=== PATIENT | male | born 1935 | race Caucasian/White ===

== ENCOUNTER 2016-05-08 19:09 | Inpatient (IN) | payer MEDICARE, MEDICAID ==
[2016-05-08 20:55] VITALS: BP 125/71
[2016-05-08] MEDS ORDERED: Maalox 30 mL Cup PO PRN (21:17)
[2016-05-08] MEDS ORDERED: Magnesium Hydroxide (MOM) 30 mL UDC PO PRN (21:17)
--- NOTE | 2016-05-08 23:47 | Admit Criteria Form ---
Admit Criteria Forms - Admit Criteria Diagnosis: PSYCHIATRIC DISORDERS Clinical Indications for Inpatient Care (Place 'X' for any and all applicable criteria): Ongoing inpatient care may be needed for ANY ONE of the following(1)(2)(3)(4)(6) (7)(8): [X]I. Danger to self or others not manageable at lower level of care. [ ]II. Grave disability (eg, inability to perform self care necessary at lower level of care) [ ]III. Agitation or inappropriate behavior interfering with care for primary condition (eg, attempting to discontinue lines or drains prematurely, unable to cooperate with respiratory care) [ ]IV. Severe disability or disorder indicated by ALL of the following: [ ]a) Severe behavioral health disorder-related symptoms or condition indicated by ANY ONE of the following: [ ]i) Severe problem with cognition, memory, judgment, or impulse control [ ]ii) Severe clinical manifestations (eg, hallucinations, delusions, other acute psychotic symptoms, issa, extreme agitation or anxiety) [ ]b) Patient management at lower level of care is not feasible until acute intervention or modification is initiated. Extended stay beyond goal length of stay for the primary condition may be indicated when ANY ONE of the following is present: (1)(2)(3)(4): [ ]a) Patient is a danger to self or others and not manageable at lower level of care. [ ]b) Behavior crisis management, including physical or chemical restraints, is required and is not available at a lower level of care. [ ]c) Behavioral symptoms (e.g., agitation, somnolence, inappropriate behavior) are present, and are not manageable at a lower level of care. [ ]d) Patient cannot understand follow-up treatment and crisis plan. [ ]e) Provider and supports are not sufficiently available at lower level of care. [ ]f) Patient cannot participate (e.g., verify absence of plan for harm) and is in needed of monitoring. The original [facility] [employer] content created by [facility] [employer] has been revised. The portions of the content which have been revised are identified through the use of italic text or in bold, and [facility] [employer] has neither reviewed nor approved the modified material. All other unmodified content is copyright [facility] [employer]. Please see references footnoted in the original [facility] edition 2016 Admit Criteria Met?: Yes
[2016-05-09] MEDS: Multivitamin Tab PO SCH (08:33)
[2016-05-09] MEDS: Diltiazem CD 180 mg C24 PO SCH (08:35)
--- NOTE | 2016-05-10 00:26 | History & Physical ---
HISTORY OF PRESENT ILLNESS: The patient is a 80-year-old male with long history of hypertension, depression and psychosis, admitted to ____ hospital with acute agitation. The patient stabilized clinically, transferred to [facility]. The patient feels better. There is no chest pain, no shortness of breath, no nausea, no vomiting, no fever and no chills. PAST MEDICAL HISTORY: Significant for hypertension and dementia. PAST SURGICAL HISTORY: No recent surgery. ALLERGIES: None. MEDICATIONS: Follow admission reconciliation. SOCIAL HISTORY: No smoking, alcohol or drugs. FAMILY HISTORY: Noncontributory. REVIEW OF SYSTEMS: RENAL SYSTEM: No history of chronic renal disorder. CARDIOVASCULAR SYSTEM: No coronary artery disease. ENDOCRINE SYSTEM: No diabetes or thyroid problem. GASTROINTESTINAL SYSTEM: No upper or lower GI bleed. NEUROLOGICAL SYSTEM: No ____ or dementia, psychosis. MUSCULOSKELETAL SYSTEM: No muscular dystrophy. HEMATOLOGIC SYSTEM: No bleeding tendencies. RESPIRATORY SYSTEM: ____. GENITOURINARY SYSTEM: No dysuria or hematuria. PHYSICAL EXAMINATION: GENERAL: He is awake, alert and mildly confused. VITAL SIGNS: Temperature 98, heart rate 88 and blood pressure 143/74. HEENT: Normocephalic. Pupils reacting to light and accommodation. Sclerae clear. NECK: Supple. Negative for lymphadenopathy, JVD or bruit. CHEST: Bilaterally normal. No rhonchi or wheezing. HEART: S1 and S2 normal. ____ No murmur or gallop. ABDOMEN: Soft. Bowel sounds positive. EXTREMITIES: No edema. BACK: ____. SKIN: Intact. GENITOURINARY: Rectal examination done by primary physician. No complaint. NEUROLOGIC: He is awake, alert and mildly confused. No focal motor or sensory deficits. Cranial nerves 2-12 intact. ASSESSMENT: 1. Hypertension. 2. Dementia. 3. Psychosis. PLAN: The patient is in the hospital under Dr. Durant's service. PROBLEMS TO BE ADDRESSED DURING HOSPITALIZATION: Psychosis, dementia. MEDICAL PROBLEMS TO BE ADDRESSED AT DISCHARGE: Hypertension. The patient is medically stable for activity. Thank you, Dr. Durant for asking me to see your patient. JOB# [id number]
--- NOTE | 2016-05-10 04:12 | Psychosocial Evaluation ---
JUSTIFICATION FOR HOSPITALIZATION: A 5150 hold, danger to others and grave disability. Patient is aggressive, violent and confused. CHIEF COMPLAINT: "I do not want to talk to you." HISTORY OF PRESENT ILLNESS: This is a 80-year-old male who I saw over at [facility], placed on a 5150 hold. He was disorganized, psychotic, rambling, violent, aggressive and kicking staff. He had ran away from [facility], was found wandering in traffic, agitated. The police took him to the hospital. On [id number], the patient is refusing interview. PAST PSYCHIATRIC HISTORY: Dementia and psychosis, unspecified. FAMILY HISTORY: Noncontributory. SOCIAL HISTORY: The patient had been living at a rehabilitation center. Daughter very involved. Unclear substance abuse history. MEDICAL HISTORY: Please see full H and P. MEDICATIONS: Reviewed. MENTAL STATUS EXAMINATION: Appearance unkempt, disheveled, little eye contact, not talking to me. Mood is "what do you want." Affect flat. Thought processes were confused. Thought content, unclear SI or HI, but he is violent and appears paranoid. Insight and judgment diminished x 2. Poor concentration. PROVISIONAL DIAGNOSES: Psychosis, unspecified and dementia. ESTIMATED LENGTH OF STAY: 5-10 days. THE PATIENT'S STRENGTH: Good family support. ASSESSMENT: The patient is requiring inpatient hospitalization, violent, disorganized, combative and unable to care for his basic needs. PLAN: We will continue medications, titrate medications as tolerated. TREATMENT PLAN: Includes group as well as milieu therapy. CONDITIONS FOR DISCHARGE: Improved mood, improved affect, control of his violent tendencies and control of his aggressive behaviors. JOB# [id number]
[2016-05-10] MEDS: Diltiazem CD 180 mg C24 PO SCH (08:49)
[2016-05-10] MEDS: Multivitamin Tab PO SCH (08:51)
--- NOTE | 2016-05-11 06:30 | Progress Notes ---
SUBJECTIVE: The patient seen, chart reviewed, discussed with staff. The patient continues to refuse interview, yelling, still hostile at times, unpredictable, impulsive, dangerous, violent, appearing confused, withdrawn, requiring a lot of prompting, redirection, not interactive whatsoever during interview. Medications were reviewed. Labs were reviewed. Depakote level at 29. ASSESSMENT: The patient remains violent, dangerous, impulsive, unpredictable. PLAN: Increase Depakote today. Monitor closely for any other side effects. JOB# [id number]
[2016-05-11] MEDS: Multivitamin Tab PO SCH (09:03)
[2016-05-11] MEDS: Diltiazem CD 180 mg C24 PO SCH (09:04)
--- NOTE | 2016-05-12 01:16 | Progress Notes ---
Covering for Dr. Durant. Case discussed with staff of the patient, reviewed records. A 80-year-old male who was admitted on 05/08/2016, on a hold for danger to others, grave disability. He was aggressive, violent, confused. He refused to talk to Dr. Durant. Apparently, he was seen by Dr. Durant at [facility], he put him on a hold. He was disorganized, psychotic, rambling, violent, aggressive, kicking staff, ran away from [facility]. He was found wandering in traffic, agitated. Police took him to the hospital. The patient is refusing interview. The patient has been diagnosed with psychosis and dementia. The patient's current medications include Depakote 250 mg twice a day, decreased to 250 mg daily and 500 mg at bedtime and Aricept 5 mg at bedtime, Namenda 10 mg daily, Seroquel 100 mg twice a day and 200 mg at bedtime. The patient continues to be confused, irritable, angry, demented, continues to be unable to formulate a safe plan for self-care and so far compliant with the medication with no side effects, no sedation, no nausea, no extrapyramidal symptoms and we will continue to work with patient in group therapy, milieu therapy, adjust the medication as needed. JOB# [id number]
[2016-05-12] MEDS: Multivitamin Tab PO SCH (08:54)
[2016-05-12] MEDS: Diltiazem CD 180 mg C24 PO SCH (08:54)
--- NOTE | 2016-05-13 02:52 | Progress Notes ---
Case was discussed with staff of the patient, also discussed the care with his daughter yesterday, who believes that the patient needed CT scan of the head and MRI of the brain that Dr. Durant told her that this could be done here; however, I deferred that decision to Dr. Clement yesterday. The daughter yesterday complained that the patient has been so sedated and has swollen extremities, though the staff has not agreed that he has a swollen extremity. However, I did decrease his Seroquel to half. He was on the 100 mg twice a day, decreased it down, took the day medication away and kept him on the 200 mg at bedtime. His Depakote dose is the same and so far, no side effects. He is more alert. The staff reports he is eating and still, however, noncommunicative and confused. We will continue to work with patient in group therapy, milieu therapy, adjust medication as needed. JOB# [id number]
[2016-05-13] MEDS: Diltiazem CD 180 mg C24 PO SCH (09:53)
[2016-05-13] MEDS: Multivitamin Tab PO SCH (09:54)
[2016-05-13 10:40] LABS: CREATININE - SERUM 0.9 mg/dL (0.7-1.3)
--- NOTE | 2016-05-14 04:58 | Progress Notes ---
Case was discussed with staff of the patient, reviewed records. The patient will have a CT scan of the head. The staff reports he is more alert now. He is sleeping better, eating better. He is compliant with the medication with no side effects, no sedation, no nausea, no extrapyramidal symptoms. We will continue to work with the patient in group therapy, milieu therapy, and adjust the medication as needed. JOB# [id number]
[2016-05-14] MEDS: Multivitamin Tab PO SCH (09:37)
[2016-05-14] MEDS: Diltiazem CD 180 mg C24 PO SCH (09:38)
--- NOTE | 2016-05-15 04:34 | Progress Notes ---
Case discussed with staff of the patient, reviewed records. The patient is alert today. He was unable to carrying out conversation. He did have a CT scan this morning that was ordered. He seems to be in a bit better shape. The staff report that he get worse in the afternoon, but so far he was not showing any agitation. This morning he is responding well to redirection. No side effects with the medication, no sedation, no nausea, no extrapyramidal symptoms. We will continue the patient in group therapy, milieu therapy, adjust medication as needed. JOB# [id number]
[2016-05-15] MEDS: Multivitamin Tab PO SCH (09:15)
[2016-05-15] MEDS: Diltiazem CD 180 mg C24 PO SCH (09:17)
--- NOTE | 2016-05-15 14:50 | Diagnostic Imaging Report ---
CT scan of brain without intravenous contrast HISTORY: Headache, trauma Total DLP equals 636 CTDI equals 32.3 Axial sections were obtained from the base of the skull to the vertex. There is enlargement of the ventricular system along with enlargement of cerebral sulci and subarachnoid cisterns reflecting atrophy. No acute parenchymal abnormality is. No intracerebral hemorrhage. No mass effect or shift of midline structures. No extra-axial masses or abnormal fluid collections. IMPRESSION: 1. No acute abnormalities 2. Cerebral atrophy
--- NOTE | 2016-05-16 06:06 | Progress Notes ---
SUBJECTIVE: The patient was seen, chart reviewed and discussed with staff. The patient remains symptomatic, is very confused, states that he is going to leave here and go straight to work. The patient did have a CT scan. The patient is still with agitation, escalation of behaviors, violent at times, still responding to internal stimuli, seems internally preoccupied, sleeping fairly well, withdrawn, isolative and requiring prompting for ADLs. ASSESSMENT: The patient remains symptomatic, not safe for discharge. We will continue to monitor. We are working on placement. The patient cannot care for his basic needs given his history and current presentation. JOB# [id number]
[2016-05-16] MEDS: Diltiazem CD 180 mg C24 PO SCH (08:45)
[2016-05-16] MEDS: Multivitamin Tab PO SCH (08:45)
[2016-05-17] MEDS: Multivitamin Tab PO SCH (09:19)
[2016-05-17] MEDS: Diltiazem CD 180 mg C24 PO SCH (09:24)
--- NOTE | 2016-05-17 17:16 | Progress Notes ---
SUBJECTIVE: The patient seen, chart reviewed, discussed with staff. The patient remains symptomatic, confused, has no idea why is here. He states that he is 89 years old, still aggressive and agitated. CT scan results were reviewed. The patient is unable to care for his basic needs, cannot utilize basic food, clothing and snf, history of violent and aggression. ADLs with prompting, eating with prompting. Tolerance of current medication regimen. No side effects, no EPS. ASSESSMENT: The patient remains symptomatic, still psychotic, confused, dangerous, not safe for a lower level of care. We are working hard on disposition on placement. PLAN: The patient remains symptomatic, not safe for a lower level of care. Currently on Seroquel 200, Prozac 10 mg, Aricept 5 mg, divalproex 250 in the morning and 500 at night. The patient does seem to be calmer, but remains confused and disoriented. JOB# [id number]
--- NOTE | 2016-05-18 02:26 | Progress Notes ---
SUBJECTIVE: The patient seen, chart reviewed, discussed with staff. The patient remains very confused and disoriented. Still impulsive, unpredictable, gravely disabled, cannot utilize basic food, clothing and nursing home. I did speak with the [id number] yesterday. She is actively searching for a place for him to go, but has as of yet not confirmed placement. The patient is sleeping fairly well ____. ASSESSMENT AND PLAN: The patient remains confused, unpredictable, gravely disabled, disoriented, rambling nonsensically, history of violence and agitation. We will continue to monitor and titrate medications ____ need help with placement. JOB# [id number]
[2016-05-18] MEDS: Diltiazem CD 180 mg C24 PO SCH (09:49)
[2016-05-18] MEDS: Multivitamin Tab PO SCH (09:50)
[2016-05-19] MEDS: Diltiazem CD 180 mg C24 PO SCH (08:46)
[2016-05-19] MEDS: Multivitamin Tab PO SCH (08:46)
--- NOTE | 2016-05-19 17:39 | Progress Notes ---
SUBJECTIVE: The patient seen, chart reviewed, discussed with staff. The patient remains impulsive, unpredictable, history of violence, aggressive behaviors, very confused. Unable to utilize basic food, clothing and fdc, gravely disabled. [id number]-kc-lff actively seeking a placement to go. The patient sleeping fairly well, eating with prompting, calm at this time, disoriented, AO to name only. ASSESSMENT: The patient remains symptomatic, confused, unpredictable, history of violence, rambling nonsensically, grave disability. PLAN: Continue to monitor and titrate medications. Currently pending confirmation of placement. JOB# [id number]
--- NOTE | 2016-05-20 02:46 | Progress Notes ---
SUBJECTIVE: The patient was seen, chart reviewed, and discussed with staff. The patient remains confused, still disoriented, impulsive, unpredictable, calmer at this time, less combative, more redirectable, but concerns about his ability to provide for basic food, clothing, and chcf, unable to utilize basic food, clothing, and chcf due to the severity of his confusional state. We are trying to help him with placement at this time. The patient is requiring prompting for ADLs and prompting for eating. He is taking his medications. No EPS. No akathisia. ASSESSMENT AND PLAN: Confused, unpredictable, grave disability, disoriented, will await placements. JOB# [id number]
[2016-05-20] MEDS: Multivitamin Tab PO SCH (08:10)
[2016-05-20] MEDS: Diltiazem CD 180 mg C24 PO SCH (08:10)
--- NOTE | 2016-05-21 01:47 | Progress Notes ---
SUBJECTIVE: The patient is seen, chart reviewed, discussed with staff. The patient remains symptomatic. Still aggressive at times, but more redirectable, confused, and disoriented. We are working hard on placement. Unable to utilize basic food, clothing and intermediate due to the severity of the psychotic and cognitive decline symptoms, mostly isolative, withdrawn, mumbling to himself. ASSESSMENT: The patient is calmer, more cooperative, but gravely disabled, confused, psychotic. PLAN: Titrate medications, monitor closely. We are working hard on placement. JOB# [id number]
[2016-05-21] MEDS: Multivitamin Tab PO SCH (09:05)
[2016-05-21] MEDS: Diltiazem CD 180 mg C24 PO SCH (09:05)
[2016-05-22] MEDS: Multivitamin Tab PO SCH (09:32)
[2016-05-22] MEDS: Diltiazem CD 180 mg C24 PO SCH (09:32)
--- NOTE | 2016-05-22 18:33 | Progress Notes ---
SUBJECTIVE: The patient seen, chart reviewed, discussed with staff. The patient remains symptomatic, confused, still agitated, does not know what is going on, appearing psychotic, responding to internal stimuli, delusional, wandering, impulsive, highly unpredictable, history violent, currently with grave disability, unable to participate in self-care planning discussions. He is frankly too confused. ASSESSMENT AND PLAN: The patient remains confused, history of violence, impulsive, unpredictable, still with safety concerns. PLAN: Coordinate care with social media director to try to confirm placement. We will continue titrating medications. JOB# [id number]
--- NOTE | 2016-05-22 22:28 | Progress Notes ---
SUBJECTIVE: The patient seen, chart reviewed, discussed with staff. The patient remains symptomatic, highly disorganized, confused, disoriented, still aggressive at times, impulsive, unpredictable, difficulty with following any rules and directions, stays in his room most of the time, isolative, withdrawn. On a positive note, he is med compliant. No side effects noted. No EPS for example, no over sedation. Gravely disabled, unable to care for his basic needs. We are trying to help him with placement. ASSESSMENT AND PLAN: The patient remains symptomatic, not safe for a lower level of care. Currently pending placement. JOB# [id number]
[2016-05-23] MEDS: Diltiazem CD 180 mg C24 PO SCH (09:00)
[2016-05-23] MEDS: Multivitamin Tab PO SCH (09:04)
[2016-05-24] MEDS: Diltiazem CD 180 mg C24 PO SCH (08:18)
[2016-05-24] MEDS: Multivitamin Tab PO SCH (08:20)
--- NOTE | 2016-05-24 19:09 | Progress Notes ---
SUBJECTIVE: The patient seen, chart reviewed, discussed with staff. The patient remains aggressive, impulsive, confused, disoriented, unable to care for his basic needs, too confused to utilize basic food, clothing and retirement, now awaiting placement. He is taking his medications, no side effects, following unit rules and directions at this time, withdrawn, isolative. ASSESSMENT: The patient is demented, confused, disoriented, aggressive, gravely disabled. PLAN: We are working hard on placement, monitor for side effects. JOB# [id number]
--- NOTE | 2016-05-25 02:11 | Progress Notes ---
SUBJECTIVE: The patient was seen, chart reviewed, and discussed with staff. The patient remains symptomatic. Still aggressive at times, labile, gravely disabled, cannot utilize basic food, clothing, and prison due to the severity of his cognitive decline of dementia. Currently pending placement. No SI, no HI. The patient is rambling nonsensical, does not really know what he is and what is going on. Sleeping fairly well, eating with prompting, and ADLs with prompting. He remains isolative, mostly in his room. ASSESSMENT AND PLAN: The patient remains gravely disabled. He is noted highly confused, demented, and disoriented. PLAN: We will continue to monitor, working hard on placements. JOB# [id number]
[2016-05-25] MEDS: Multivitamin Tab PO SCH (08:52)
[2016-05-25] MEDS: Diltiazem CD 180 mg C24 PO SCH (08:54)
[2016-05-26] MEDS: Multivitamin Tab PO SCH (09:13)
[2016-05-26] MEDS: Diltiazem CD 180 mg C24 PO SCH (09:14)
--- NOTE | 2016-05-26 22:20 | Progress Notes ---
SUBJECTIVE: The patient seen, chart reviewed, discussed with staff. The patient remains symptomatic, gravely disabled, cannot utilize basic food, clothing and long-term, unkempt. We are trying to work on placement, currently pending placement. The patient is still isolative, withdrawn, spending most of his time in bed, needing prompting for ADLs, prompting for eating. ASSESSMENT: The patient is unable to utilize basic food, clothing and long-term, gravely disabled. PLAN: We will continue to monitor, titrate medications. [facility]# [id number]
--- NOTE | 2016-05-26 22:33 | Progress Notes ---
SUBJECTIVE: The patient seen, chart reviewed, discussed with staff. The patient remains symptomatic. We are having trouble with placement and he cannot care for his basic needs. Still aggressive at times, agitated, impulsive, withdrawn, staying in his room most of the time, needing prompting for ADLs, prompting to eat, poor mentation, unkempt, taking his medications. ASSESSMENT: The patient remains withdrawn, isolative, angry, irritable, not able to care for his basic needs, cannot utilize basic food, clothing and halfway. PLAN: We are continuing to work out on placement. JOB# [id number]
[2016-05-27] MEDS: Diltiazem CD 180 mg C24 PO SCH (09:12)
[2016-05-27] MEDS: Multivitamin Tab PO SCH (09:15)
--- NOTE | 2016-05-28 00:23 | Progress Notes ---
SUBJECTIVE: The patient was seen, chart was reviewed, and discussed with staff. The patient remains symptomatic, gravely disabled, cannot utilize basic food, clothing, and intermediate, concerns for safety, confused. Does not know where he is, states he is "in my bedroom." Does not know the year, the month, or why he is in the hospital or even that he is in the hospital. Per staff, he has been more engaged, better attention to ADLs, more interactive, needing a lot of prompting, however. ASSESSMENT: The patient remains gravely disabled, cannot take care of himself. We are working on placement, but we have not confirmed placement, and the patient cannot care for his basic needs. JOB# [id number]
--- NOTE | 2016-05-28 01:15 | Progress Notes ---
SUBJECTIVE: The patient was seen, chart was reviewed, and discussed with staff. The patient remains symptomatic, gravely disabled, and confused. Does not know where he is, states "in the bedroom." Has no idea that he is in the hospital. Does not know why he is in the hospital, has no idea about the year and the month. He is able to tell me he was born in [place], however, more engaged, better attention ADLs, but unable to utilize basic food, clothing, and fdc and needs placement and no placement is confirmed. ASSESSMENT: The patient with behavioral disturbances, still impulsive, unpredictable, confused, disoriented, but improvement noted. PLAN: We will continue to monitor. Awaiting confirmation for placement. JOB# [id number]
[2016-05-28] MEDS: Diltiazem CD 180 mg C24 PO SCH (09:55)
[2016-05-28] MEDS: Multivitamin Tab PO SCH (09:57)
--- NOTE | 2016-05-29 02:57 | Progress Notes ---
SUBJECTIVE: Chart reviewed and the patient interviewed. Also discussed the patient's condition with the staff and reviewed records and labs. The patient is selectively mute and he is actively responding to the stimuli. When I was asking the patient about how he feels, "I am looking at the ." He also is still depressed and wants to be left alone. The patient also is slow in response and he seems to be preoccupied. Also, he seems to be paranoid. Otherwise, the patient is compliant with taking his medications with no side effects of medications. ASSESSMENT: The patient is still psychotic. TREATMENT PLAN: We will continue monitoring his behavior and his condition closely. Also, continue to adjust the psychotropic medications and working on placement issue. JOB# [id number]
[2016-05-29] MEDS: Multivitamin Tab PO SCH (08:43)
[2016-05-29] MEDS: Diltiazem CD 180 mg C24 PO SCH (08:45)
--- NOTE | 2016-05-29 23:27 | Progress Notes ---
SUBJECTIVE: The patient seen, chart reviewed, discussed with staff. The patient remains symptomatic, still very confused, withdrawn, but on a positive note, he is calmer, more redirectable. However, he is quite demented, confused, unable to utilize basic food, clothing and [facility], cannot take care of himself. We are working on placement at this time as well, but until placement is confirmed, the patient is considered gravely disabled. He is pretty unkempt at this time, needing prompting for ADLs and prompting to eat. ASSESSMENT AND PLAN: The patient is following unit rules, still irritable, still with some mood swings and lability, confused, tangential, disorganized, disoriented. He cannot care for himself. We will continue to monitor and titrate medications. JOB# [id number]
[2016-05-30] MEDS: Multivitamin Tab PO SCH (08:36)
[2016-05-30] MEDS: Diltiazem CD 180 mg C24 PO SCH (08:38)
--- NOTE | 2016-05-31 03:34 | Progress Notes ---
SUBJECTIVE: The patient seen, chart reviewed, discussed with staff. The patient remains gravely disabled, confused, disoriented, unable to care for his basic needs, unable to provide for basic food, clothing and nursing home. He is more calm, following unit rules and directions, sleeping fairly well, eating with prompting, no SI, no HI, no agitation, no escalation of behaviors. ASSESSMENT: Gravely disabled, currently awaiting to confirm placements. The patient cannot care for his basic needs, so he will be gravely disabled until placement is confirmed. Otherwise, he does remain disorganized and confused, but following unit rules and directions, no agitation. JOB# [id number]
[2016-05-31] MEDS: Diltiazem CD 180 mg C24 PO SCH (08:34)
[2016-05-31] MEDS: Multivitamin Tab PO SCH (08:34)
--- NOTE | 2016-05-31 23:46 | Discharge Summary ---
JUSTIFICATION FOR HOSPITALIZATION: The patient transferred from [facility] agitated, combative, delusional and psychotic. CHIEF COMPLAINT: Psychotic decompensation. HISTORY OF PRESENT ILLNESS: This is a 80-year-old male transferred from [facility] referred by Dr. Durant, agitated, combative, delusional, psychotic, dangerous, hitting staff and requiring restraints. The patient poorly oriented, disoriented. PAST PSYCHIATRIC HISTORY: Advanced cognitive decline. FAMILY HISTORY: Noncontributory. SOCIAL HISTORY: Support from [id number], otherwise requiring high level of care. MENTAL STATUS EXAMINATION: Please see full psych eval for details. PROVISIONAL DIAGNOSES: Psychosis, unspecified and dementia with behavioral disturbances. PAST MEDICAL HISTORY: Please see full H and P. HOSPITAL COURSE: After initial assessment, the patient was started on antipsychotic medications and medications to tamper his mood and control his impulse. Over the course of the hospitalization, medication was increased and titrated appropriately. As the hospitalization progressed, his mood improved. He was more engaged, less combative, more cooperative, following the rules and directions. No longer paranoid, no longer psychotic, sleeping well, eating with prompting, ADLs with prompting. By 05/31/2016, placement was confirmed as the patient was not able to care of himself and he was discharged and transferred to a fpc facility. CONDITION UPON DISCHARGE: Improved. Better attention ADLs, better eye contact, more engaged, calm and cooperative. Mood "fine." Affect flat. Thought processes were confused. No SI, no HI and no evidence of psychosis. Concentration fair. Insight remains diminished. Judgment better. Better impulse control. Sleeping well and eating well. No agitation and no combative behaviors. I was in touch with the [id number] a few times over the course of the hospitalization and did update her. DISCHARGE DIAGNOSES: Psychosis, unspecified and dementia with behavioral disturbances and mood, not otherwise specified. PROGNOSES: The patient follows up with Psychiatry at his fpc facility and follows the treatment plan. Prognosis will improve, otherwise guarded. JOB# [id number]
== END 2016-05-31 13:30 | DRG 884 ==
LOC: GERO 19:09
PROVIDERS: ADMIT Psychiatry & Neurology Psychiatry; ATTEND Psychiatry & Neurology Psychiatry
DX: F03.91 Unspecified dementia, unspecified severity, with behavioral disturbance (principal); I10 Essential (primary) hypertension; F32.9 Major depressive disorder, single episode, unspecified; F29 Unspecified psychosis not due to a substance or known physiological condition; F39 Unspecified mood [affective] disorder
CPT/HCPCS: 36415-UA; 70450-TC; 80164-TC; 82565-TC; 84520-TC; 90899; Z7610

== ENCOUNTER 2016-12-15 12:55 | Inpatient (IN) | payer MEDICARE, MEDICAID ==
--- NOTE | 2016-12-15 13:21 | ED Physician Chart ---
ED Chief Complaint/HPI - Patient Information Date Seen:: 12/15/16 Time Seen:: 13:17 Chief Complaint:: NOT EATING History of Present Illness:: THE IS A 81 YR OLD MALE SENT FROM THE GROUP HOME FOR EVALUATION AND TREATMENT OF HIS OF PSYCHOTIC BEHAVIOR. HE HAS STOPPED EATING AND HAS BEEN UNCOOPERATIVE WITH AGITATION. HAS A HISTORY OF HYPERTENSION AND DEMENTIA. Allergies:: Allergies Allergy/AdvReac Type Severity Reaction Status Date / Time No Known Allergies Allergy Verified 05/08/16 20:36 Vitals:: Vital Signs - 8 hr 12/15/16 13:02 Temp 98.2 F HR 76 RR 18 BP 130/72 O2 Sat % 97 Historian:: Medical Records Review:: Nurse's Note Reviewed, Transfer documents Reviewed ED Review of Systems - Review of Systems General/Constitutional: No fever, No chills, No weight loss, No weakness, No diaphoresis, No edema, No loss of appetite, Other (THIS PATIENT IS UNABLE TO GIVE A REVIEW OF SYSTEMS.) Skin: No skin lesions, No rash, No bruising Head: No headache, No light-headedness Eyes: No loss of vision, No pain, No diplopia ENT: No earache, No nasal drainage, No sore throat, No tinnitus Neck: No neck pain, No swelling, No thyromegaly, No stiffness, No mass noted Cardio Vascular: No chest pain, No palpitations, No PND, No orthopnea, No edema Pulmonary: No SOB, No cough, No sputum, No wheezing GI: No nausea, No vomiting, No diarrhea, No pain, No melena, No hematochezia, No constipation, No hematemesis G/U: No dysuria, No frequency, No hematuria Musculoskeletal: No bone or joint pain, No back pain, No muscle pain Endocrine: No polyuria, No polydipsia Psychiatric: No prior psych history, No depression, No anxiety, No suicidal ideation Hematopoietic: No bruising, No lymphadenopathy Allergic/Immuno: No urticaria, No angioedema Neurological: No syncope, No focal symptoms, No weakness, No paresthesia, No headache, No seizure, No dizziness, No confusion, No vertigo ED Past Medical History - Past Medical History Obtainable: Yes Past Medical History: HTN, Dementia Family History: None Social History: Non Smoker, No Alcohol, No Drug Use, Care Facility Surgical History: None Psychiatricy History: Depression, Dementia Family Medical History - Family Member Mother History Unknown: Yes ED Physical Exam - Physical Examination General/Constitutional: Well-developed, well-nourished, Alert, No distress, GCS 15, Non-toxic appearing, Ambulatory Other Gen/Cons comments:: HE IS NON VERBAL AND LETHARGIC Head: Atraumatic Eyes: Lids, conjuctiva normal, PERRL, EOMI Skin: Nl inspection, No rash, No skin lesions, No ecchymosis, Well hydrated, No lymphadenopathy ENMT: External ears, nose nl, Nasal exam nl, Lips, teeth, gums nl Neck: Nontender, Full ROM w/o pain, No JVD, No nuchal rigidity, No bruit, No mass, No stridor Respiratory: Nl effort/Exclusion, Clear to Auscultation, No Wheeze/Rhonchi/Rales Cardio Vascular: RRR, No murmur, gallop, rubs, NL S1 S2 GI: No tenderness/rebounding/guarding, No organomegaly, No hernia, Normal BS's, Nondistended, No mass/bruits, No McBurney tenderness : No CVA tenderness Extremities: No tenderness or effusion, Full ROM, normal strength in all extremities, No edema, Normal digits & nails Neuro/Psych: DTR's symmetric, Normal sensory exam, Normal motor strength, Judgement/insight normal (HE IS DISORIENTED TIMES FOUR), Mood normal, Normal gait, No focal deficits Misc: normal gait, Normal back, No paraspinal tenderness ED Labs/Radiology/EKG Results - Lab Results Results: Abnormal Lab Results 12/15/16 12/15/16 12/15/16 13:15 13:15 13:15 WBC 6.8 RBC 4.04 Hgb 12.4 Hct 37.3 L MCV 92.5 MCH 30.7 MCHC Differential 33.2 RDW 13.4 Plt Count 175 MPV 8.2 Neutrophils % 60.8 Lymphocytes % 26.9 Monocytes % 8.7 Eosinophils % 3.2 Basophils % 0.4 PT 10.8 INR 1.04 Sodium Potassium Chloride Carbon Dioxide Anion Gap BUN Creatinine Est GFR ( Amer) Est GFR (Non-Af Amer) BUN/Creatinine Ratio Glucose Calcium Total Bilirubin AST ALT Alkaline Phosphatase Total Protein Albumin Globulin Albumin/Globulin Ratio Triglycerides 99 Cholesterol 145 LDL Cholesterol Direct 104 HDL Cholesterol 42 12/15/16 13:15 WBC RBC Hgb Hct MCV MCH MCHC Differential RDW Plt Count MPV Neutrophils % Lymphocytes % Monocytes % Eosinophils % Basophils % PT INR Sodium 140 Potassium 4.3 Chloride 108 H Carbon Dioxide 30.1 Anion Gap 6.2 L BUN 23 Creatinine 0.9 Est GFR ( Amer) TNP Est GFR (Non-Af Amer) TNP BUN/Creatinine Ratio 25.6 Glucose 77 Calcium 9.1 Total Bilirubin 0.6 AST 18 ALT 14 Alkaline Phosphatase 29 L Total Protein 6.3 Albumin < 1.5 L Globulin 4.8 Albumin/Globulin Ratio 0.3 L Triglycerides Cholesterol LDL Cholesterol Direct HDL Cholesterol - Radiology Results Results: CHEST X-RAY = NAD - EKG Interpretations EKG Time:: 13:41 Rate & Rhythm: RATE =48 SINUS BRADYCARDIA [place]: LEFT ED Assessment - Assessment General Assessment: BRADYCARDIA PSYCHOSIS ED Septic Shock - . Is Septic Shock (SBP<90, OR Lactate>4 mmol\L) present?: No - <6hrs of presentation: Vital Signs: Vital Signs - 8 hr 12/15/16 13:02 Temp 98.2 F HR 76 RR 18 BP 130/72 O2 Sat % 97 ED Reassessment (Disposition) - Reassessment Reassessment Condition:: Unchanged - Diagnosis Diagnosis:: BRADYCARDIA PSYCHOSIS - Patient Disposition Discharge/Transfer:: Acute Care w/in this hosp Admitting Medical Physician:: Chago Clement Condition at Disposition:: Unchanged ED Discharge Plan - Patient Disposition Admit/Discharge/Transfer: Acute Care w/in this hosp Condition at Disposition: Guarded
[2016-12-15 13:23] LABS: % BASOPHILS 0.4 % (0.0-2.0); % EOSINOPHILS 3.2 % (0.0-5.0); % LYMPHOCYTES 26.9 % (20.0-50.0); % MONOCYTES 8.7 % (2.0-10.0); % NEUTROPHILS 60.8 % (40.0-80.0); HEMATOCRIT 37.3 % (41.0-60); HEMOGLOBIN 12.4 gm/dL (12-16); MEAN CELL VOLUME 92.5 fl (80-99); MEAN CORPUSCULAR HEMOGLOBIN 30.7 pg (27.0-31.0); MEAN CORPUSCULAR HGB CONC 33.2 pg (28.0-36.0); MEAN PLATELET VOLUME 8.2 fl; NEUTROPHILE ABSOLUTE 4.2 Th/cmm (1.8-8.0); PLATELET COUNT 175 Th/cmm (150-400); RED BLOOD COUNT 4.04 Mil/cmm (3.80-5.80); RED CELL DISTRIBUTION WIDTH 13.4 % (11.5-20.0); WHITE BLOOD COUNT 6.8 Th/cmm (4.8-10.8)
[2016-12-15] MEDS ORDERED: Haloperidol Lactate 5 mg/mL 1mL Vial IM STA (13:27)
[2016-12-15] MEDS ORDERED: Haloperidol Lactate 5 mg/mL 1mL Vial ONE (13:33)
--- NOTE | 2016-12-15 13:33 | Diagnostic Imaging Report ---
Chest x-ray single view History: Cough Comparison: None The heart size is normal. No focal pulmonary parenchymal processes. No hilar or mediastinal abnormalities. Impression: No acute abnormalities.
[2016-12-15 13:38] LABS: INR 1.04 (0.5-1.4); PROTHROMBIN TIME (TEST) 10.8 SECONDS (9.5-11.5)
[2016-12-15 13:44] LABS: ALB/GLOB RATIO 0.3 (1.0-1.8); ALKALINE PHOSPHATASE 29 U/L (34-104); ANION GAP 6.2 (7.0-16.0); BILIRUBIN,TOTAL 0.6 mg/dL (0.3-1.0); BUN - UREA NITROGEN 23 mg/dL (7-25); BUN/CREATININE RATIO 25.6; CALCIUM SERUM 9.1 mg/dL (8.6-10.3); CARBON DIOXIDE 30.1 mEq/L (21.0-31.0); CHLORIDE 108 mEq/L (98-107); CREATININE - SERUM 0.9 mg/dL (0.7-1.3); GLUCOSE 77 mg/dL (70-105); POTASSIUM SERUM 4.3 mEq/L (3.5-5.1); SGOT 18 U/L (13-39); SGPT/ALT 14 U/L (7-52); SODIUM SERUM 140 mEq/L (136-145)
[2016-12-15 13:49] LABS: CHOLESTEROL 145 mg/dL (<200); TRIGLYCERIDES 99 mg/dL (<150)
[2016-12-15 16:23] LABS: URINE BILIRUBIN NEGATIVE (NEGATIVE); URINE BLOOD TRACE (NEGATIVE); URINE GLUCOSE (UA) NEGATIVE (NEGATIVE); URINE KETONE NEGATIVE (NEGATIVE); URINE PROTEIN NEGATIVE (NEGATIVE); URINE UROBILINOGEN 0.2 E.U./dL (0.2 - 1.0)
[2016-12-15 16:28] LABS: URINE BACTERIA FEW /hpf (NONE SEEN); URINE COLOR YELLOW; URINE EPITHELIAL CELLS OCCASIONAL /lpf (FEW); URINE WBC 0-2 /hpf (0-5)
[2016-12-15] MEDS ORDERED: Maalox 30 mL Cup PO PRN (18:05)
--- NOTE | 2016-12-15 19:53 | General Progress Note ---
Subjective - Review of Systems Service Date: 12/15/16 Objective - Results Result Diagrams: 12/15/16 13:15 12/15/16 13:15 Recent Labs: Laboratory Last Values WBC 6.8 Th/cmm (4.8-10.8) 12/15/16 13:15 RBC 4.04 Mil/cmm (3.80-5.80) 12/15/16 13:15 Hgb 12.4 gm/dL (12-16) 12/15/16 13:15 Hct 37.3 % (41.0-60) L 12/15/16 13:15 MCV 92.5 fl (80-99) 12/15/16 13:15 MCH 30.7 pg (27.0-31.0) 12/15/16 13:15 MCHC Differential 33.2 pg (28.0-36.0) 12/15/16 13:15 RDW 13.4 % (11.5-20.0) 12/15/16 13:15 Plt Count 175 Th/cmm (150-400) 12/15/16 13:15 MPV 8.2 fl 12/15/16 13:15 Neutrophils % 60.8 % (40.0-80.0) 12/15/16 13:15 Lymphocytes % 26.9 % (20.0-50.0) 12/15/16 13:15 Monocytes % 8.7 % (2.0-10.0) 12/15/16 13:15 Eosinophils % 3.2 % (0.0-5.0) 12/15/16 13:15 Basophils % 0.4 % (0.0-2.0) 12/15/16 13:15 PT 10.8 SECONDS (9.5-11.5) 12/15/16 13:15 INR 1.04 (0.5-1.4) 12/15/16 13:15 Sodium 140 mEq/L (136-145) 12/15/16 13:15 Potassium 4.3 mEq/L (3.5-5.1) 12/15/16 13:15 Chloride 108 mEq/L (98-107) H 12/15/16 13:15 Carbon Dioxide 30.1 mEq/L (21.0-31.0) 12/15/16 13:15 Anion Gap 6.2 (7.0-16.0) L 12/15/16 13:15 BUN 23 mg/dL (7-25) 12/15/16 13:15 Creatinine 0.9 mg/dL (0.7-1.3) 12/15/16 13:15 Est GFR ( Amer) TNP 12/15/16 13:15 Est GFR (Non-Af Amer) TNP 12/15/16 13:15 BUN/Creatinine Ratio 25.6 12/15/16 13:15 Glucose 77 mg/dL (70-105) 12/15/16 13:15 Calcium 9.1 mg/dL (8.6-10.3) 12/15/16 13:15 Total Bilirubin 0.6 mg/dL (0.3-1.0) 12/15/16 13:15 AST 18 U/L (13-39) 12/15/16 13:15 ALT 14 U/L (7-52) 12/15/16 13:15 Alkaline Phosphatase 29 U/L (34-104) L 12/15/16 13:15 Troponin I ng/mL (0.01-0.05) 12/15/16 13:15 Total Protein 6.3 gm/dL (6.0-8.3) 12/15/16 13:15 Albumin < 1.5 gm/dL (4.2-5.5) L 12/15/16 13:15 Globulin 4.8 gm/dL 12/15/16 13:15 Albumin/Globulin Ratio 0.3 (1.0-1.8) L 12/15/16 13:15 Triglycerides 99 mg/dL (<150) 12/15/16 13:15 Cholesterol 145 mg/dL (<200) 12/15/16 13:15 LDL Cholesterol Direct 104 mg/dL (75-193) 12/15/16 13:15 HDL Cholesterol 42 mg/dL (23-92) 12/15/16 13:15 TSH 2.48 uIU/ml (0.34-5.60) 12/15/16 13:15 Urine Source CLEAN C 12/15/16 16:00 Urine Color YELLOW 12/15/16 16:00 Urine Clarity CLEAR (CLEAR) 12/15/16 16:00 Urine pH 7.0 (4.6 - 8.0) 12/15/16 16:00 Ur Specific Bryan 1.010 (1.005-1.030) 12/15/16 16:00 Urine Protein NEGATIVE mg/dL (NEGATIVE) 12/15/16 16:00 Urine Glucose (UA) NEGATIVE mg/dL (NEGATIVE) 12/15/16 16:00 Urine Ketones NEGATIVE mg/dL (NEGATIVE) 12/15/16 16:00 Urine Blood TRACE (NEGATIVE) 12/15/16 16:00 Urine Nitrate NEGATIVE (NEGATIVE) 12/15/16 16:00 Urine Bilirubin NEGATIVE (NEGATIVE) 12/15/16 16:00 Urine Urobilinogen 0.2 E.U./dL (0.2 - 1.0) 12/15/16 16:00 Ur Leukocyte Esterase NEGATIVE (NEGATIVE) 12/15/16 16:00 Urine RBC 2-5 /hpf (0-5) H 12/15/16 16:00 Urine WBC 0-2 /hpf (0-5) 12/15/16 16:00 Ur Epithelial Cells OCCASIONAL /lpf (FEW) 12/15/16 16:00 Urine Bacteria FEW /hpf (NONE SEEN) 12/15/16 16:00 Urine Mucus FEW /lpf (FEW) 12/15/16 16:00 - Physical Exam Vitals and I&O: Vital Signs Temp 97.6 F 12/15/16 18:22 Pulse 67 12/15/16 18:22 Resp 20 12/15/16 18:22 BP 150/65 12/15/16 18:22 Pulse Ox 96 12/15/16 18:22 Active Medications: Current Medications Acetaminophen (Tylenol) 650 mg PO Q4H PRN PRN Reason: Pain Stop: 02/13/17 18:04 Al Hydrox/Mg Hydrox/Simethicone (Maalox) 30 ml PO Q4HR PRN PRN Reason: GI DISTRESS Stop: 02/13/17 18:04 Aspirin (Aspirin Chewable) 81 mg PO DAILY [facility] Stop: 02/14/17 08:59 Diltiazem HCl (Cardizem Cd) 180 mg PO DAILY [facility] Stop: 02/14/17 08:59 Divalproex Sodium (Depakote Dr) 250 mg PO DAILY [facility] PRN Reason: Protocol Stop: 02/14/17 08:59 Divalproex Sodium (Depakote Dr) 500 mg PO HS ARPITA PRN Reason: Protocol Stop: 02/13/17 20:59 Docusate Sodium (Colace) 100 mg PO BID [facility]PITA Stop: 02/13/17 18:04 Donepezil HCl (Aricept) 5 mg PO HS ARPITA Stop: 02/13/17 20:59 Fluoxetine HCl (Prozac) 10 mg PO DAILY [facility]ITA PRN Reason: Protocol Stop: 02/14/17 08:59 Potassium Chloride/Sodium Chloride (0.9% Ns W/20 Meq Kcl) 1,000 mls @ 75 mls/ hr IV .[id number] ARPITA Stop: 02/13/17 18:04 Lorazepam (Ativan) 1 mg PO Q4HR PRN; Protocol PRN Reason: Anxiety Stop: 02/13/17 18:04 Memantine (Namenda) 10 mg PO DAILY [facility]ITA Stop: 02/14/17 08:59 Multivitamins/Vitamin C (Theragran) 1 tab PO DAILY [facility]ITA Stop: 02/14/17 08:59 Senna (Senna) 17.2 mg PO HS PRN PRN Reason: Constipation Stop: 02/13/17 18:04 Tamsulosin HCl (Flomax) 0.4 mg PO DAILY ARPITA Stop: 02/14/17 08:59 General: Alert, Other (confused) HEENT: PERRLA Cardiovascular: Normal S1, Normal S2 (bradycardia) Abdomen: Bowel sounds, Soft Assessment/Plan - Problem List Patient Problems: All Active Problems DEMENTIA (Acute) HTN (Acute) PSYCHOSIS (Acute) - Assessment Assessment: skin lesions on face
[2016-12-15] MEDS: 0.9% NS w/20 mEq KCL 1,000 ML IV SCH (20:05)
--- NOTE | 2016-12-15 20:26 | History & Physical ---
ADMIT DATE: 12/15/2016 HISTORY OF PRESENT ILLNESS: The patient is well known to me from following him at [facility]. The patient is known to have underlying history of psychosis. The patient is known to have a history of hernia and the patient has some skin lesion on his face, which is not acute. Apparently, the patient was not eating, drinking, and the patient was brought for evaluation for his agitation and not eating and stopped drinking. The patient known to have history of hypertension and dementia. The patient complained of no fever, no chills, no rigors, no nasal discharge. No chest pain, no shortness of breath, no nausea, vomiting, no dysuria, no polyuria, no urticaria except having some skin lesion on his face, history of depression, history of dementia, history of hypertension. PHYSICAL EXAMINATION: GENERAL: Alert, oriented, elderly male. Seen him yesterday in the custodial. HEAD: Normal. ENT: Normal. LUNGS: Bilateral clear. CARDIOVASCULAR SYSTEM: S1, S2 heard. ABDOMEN: Soft. Bowel sounds are heard. CENTRAL NERVOUS SYSTEM: The patient is confused. LABORATORY DATA: White count is 6.8, hemoglobin of 12.4, platelets 37. INR is normal. His sodium 148. CO2 is okay. BUN and creatinine 23 and 0.9 indicating some dehydration. INITIAL DIAGNOSES: His EKG showed sinus bradycardia, rule out cardiomyopathy, history of anemia, history of psychosis, and history of skin lesions. PLAN: He is going to be worked up for his heart problem. We will do cardiac enzymes every [address] Issac Gayle to see the patient and also will have Neurology see him, and Dr. Flowers and I will follow the patient. JOB# [id number]
[2016-12-16] MEDS ORDERED: Diltiazem CD 180 mg C24 PO SCH (09:00)
[2016-12-16] MEDS: Multivitamin Tab PO SCH (09:04)
--- NOTE | 2016-12-16 10:55 | History & Physical ---
ADMIT DATE: 12/16/2016 AGE: 81. SEX: Male. PHYSICIAN: Dr. Murphy. PIECE GOODS PACKER: Dr. Dorsey. REASON FOR THE CONSULT: Agitation. HISTORY OF PRESENT ILLNESS: The patient is a 81-year-old male who was admitted to the hospital and the patient has been severely agitated and trying to pull IVs and tried to hit nursing staff earlier. He also has been confused. The patient also has not been able to answer any of my questions coherently. The patient also is confused. He is a resident in [facility] and he has history of psychosis. Also, has not been able to eat or drink for several days and he was brought into the hospital for evaluation. The patient was extremely agitated to the point that he has to be placed on soft wrist restraints. PAST PSYCHIATRIC HISTORY: Dementia. PAST MEDICAL HISTORY: The patient has history of hypertension. SOCIAL HISTORY: The patient lives in [facility]. No known alcohol or street drug use. MENTAL STATUS EXAM: The patient appears his stated age. Restless. Irritable mood. In soft restraints. The patient did not answer questions regarding hallucinations or delusions or regarding suicide or homicide. The patient is alert and oriented, but seems to be disoriented to time, place, person, and situation. Impaired immediate, recent and remote memories. Poor insight and judgment. ASSESSMENT: PRIMARY DIAGNOSIS: Unspecified psychosis. SECONDARY DIAGNOSES: Dementia, severe, without psychotic features. TREATMENT PLAN: We will add Benadryl 25 mg every 6 hours on a p.r.n. basis for agitation. Also, we will work on his irritability and his agitation and we will adjust the dose of medications. Thanks to Dr. Murphy and will follow up with you. JOB# [id number]
[2016-12-16] MEDS: 0.9% NS w/20 mEq KCL 1,000 ML IV SCH (11:04)
[2016-12-16] MEDS: Aspirin 81mg Chewable Tab PO SCH (11:05)
--- NOTE | 2016-12-16 17:47 | Consultation ---
Consult Note - Consult Note Service Date: 12/16/16 Referring Physician: Ra Murphy Consult Note: PHYSICIAN Consultation Note: Date of Admission: 12/15/16 Purpose of Consultation: Chief Complaint: Patient NATALIE MCBRIDE JR was admitted to location Telemetry with SINUS BRADYCARDIA. History of Present Illness: patient was admitted to sinus bradycardia. however he was found to have macular rash all over the body so ID consult was called for evaluation. Past Medical History: Allergies Allergy/AdvReac Type Severity Reaction Status Date / Time No Known Allergies Allergy Verified 05/08/16 20:36 Vital Signs Temp 94.8 F 12/16/16 16:16 Pulse 76 12/16/16 16:16 Resp 18 12/16/16 16:16 BP 139/73 12/16/16 16:16 Pulse Ox 97 12/16/16 16:16 Intake & Output 12/15/16 12/16/16 12/16/16 18:59 06:59 18:59 Intake Total 200 1000 Output Total 0 Balance 200 1000 Weight (lbs) 79.016 kg Intake: Intake, IV Amount 1000 0.9% NS w/20 mEq KCL 1, 1000 000 ml @ 75 mls/hr IV . [id number] ARPITA Rx#:[id number] Oral 200 Output: Stool 0 Other: # Voids 2 Home Medication Medication Instructions Recorded Type Acetaminophen [Tylenol] 650 mg PO Q4H PRN #0 tab 05/31/16 Rx Al Hyd/Mg Hyd/Simethicone [Maalox] 30 ml PO Q4HR PRN #0 udc 05/31/16 Rx Diltiazem CD [Cardizem Cd] 180 mg PO DAILY #0 c24 05/31/16 Rx Divalproex [April DOWNS] 250 mg PO DAILY #0 tcp 05/31/16 Rx Divalproex [April DOWNS] 500 mg PO HS #0 tcp 05/31/16 Rx Docusate Sodium [Colace] 100 mg PO BID #0 cap 05/31/16 Rx Donepezil Hcl [Aricept] 5 mg PO HS #0 tab 05/31/16 Rx FLUoxetine HCL [PROzac] 10 mg PO DAILY #0 cap 05/31/16 Rx Lorazepam [Ativan] 1 mg PO Q4HR PRN #0 tab 05/31/16 Rx Memantine [Namenda] 10 mg PO DAILY #0 tab 05/31/16 Rx Metoprolol Succinate [Toprol Xl] 25 mg PO DAILY #0 ter 05/31/16 Rx Multivitamin [Theragran] 1 tab PO DAILY #0 tab 05/31/16 Rx Sennosides A and B [Senna] 17.2 mg PO HS PRN #0 tab 05/31/16 Rx Tamsulosin [Flomax] 0.4 mg PO DAILY #0 cap 05/31/16 Rx cloNIDine HCl [Catapres] 0.1 mg PO Q4HR PRN #0 tab 05/31/16 Rx Current Medications Generic Name Dose Route Start Last Admin Trade Name Freq PRN Reason Stop Dose Admin Acetaminophen 650 mg 12/15/16 18:05 12/16/16 04:49 Tylenol PO 02/13/17 18:04 650 mg Q4H PRN Administration Pain Al Hydrox/Mg Hydrox/Simethicone 30 ml 12/15/16 18:05 Maalox PO 02/13/17 18:04 Q4HR PRN GI DISTRESS Aspirin 81 mg 12/16/16 09:00 12/16/16 11:05 Aspirin Chewable PO 02/14/17 08:59 81 mg DAILY ARPITA Administration Diphenhydramine HCl 25 mg 12/16/16 09:37 Benadryl PO 02/14/17 09:36 QID PRN Agitation Diphenhydramine HCl 25 mg 12/16/16 11:15 12/16/16 16:06 Benadryl 50 Mg/Ml IVP 02/14/17 11:14 25 mg Q6HR PRN Administration Agitation if not tolerate po Divalproex Sodium 250 mg 12/16/16 09:00 12/16/16 09:04 April Downs PO 02/14/17 08:59 250 mg DAILY ARPITA Administration Protocol Divalproex Sodium 500 mg 12/15/16 21:00 12/15/16 22:02 April Downs PO 02/13/17 20:59 500 mg HS ARPITA Administration Protocol Docusate Sodium 100 mg 12/15/16 18:05 12/16/16 16:14 Colace PO 02/13/17 18:04 Not Given BID ARPITA Donepezil HCl 5 mg 12/15/16 21:00 12/15/16 22:02 Aricept PO 02/13/17 20:59 5 mg HS ARPITA Administration Fluoxetine HCl 10 mg 12/16/16 09:00 12/16/16 09:04 Prozac PO 02/14/17 08:59 10 mg DAILY ARPITA Administration Protocol Potassium Chloride/Sodium Chloride 1,000 mls @ 75 mls/hr 12/15/16 18:05 12/16 11:04 0.9% Ns W/20 Meq Kcl IV 02/13/17 18:04 75 mls/hr .[id number] ARPITA Administration Lorazepam 1 mg 12/15/16 18:05 12/16/16 16:06 Ativan PO 02/13/17 18:04 1 mg Q4HR PRN Administration Anxiety Protocol Memantine 10 mg 12/16/16 09:00 12/16/16 09:04 Namenda PO 02/14/17 08:59 10 mg DAILY [facility]ITA Administration Multivitamins/Vitamin C 1 tab 12/16/16 09:00 12/16/16 09:04 Theragran PO 02/14/17 08:59 1 tab DAILY [facility]ITA Administration Senna 17.2 mg 12/15/16 18:05 Senna PO 02/13/17 18:04 HS PRN Constipation Tamsulosin HCl 0.4 mg 12/16/16 09:00 12/16/16 09:04 Flomax PO 02/14/17 08:59 0.4 mg DAILY ARPITA Administration Review of Systems: A 12 point ROS was reviewed with the pertinent positive and negatives noted in the HPI. Social History Smoking Status Unknown if ever smoked Drug Use UNABLE TO ASSESS Alcohol Use UNABLE TO ASSESS Family Medical History Unknown Physical Exam: General: Comfortable, not in distress HEENT: Head: Normocephalic, atraumatic. Neck: supple, no JVD. No use of accessory neckk muscles. Cardio: S1 and S2 WNL. Respiratory: Vesicular breath sounds. Abdominal: Soft NT ND BS present. Genital/Urinary: Deferred. Extremities: NCCE Neurological: Aggressive. Alert awake. Assessment: 1. Macular rash. 2.Psychosis Plan: Skin biopsy HIV screen hsv serology. RPR Vit B12 TSH. Thank you, Dr Murphy, for involving me in taking care of the patient. Irwin Marie Devesh N., M.D. [id number]
--- NOTE | 2016-12-16 20:54 | Consultation ---
DATE OF CONSULTATION: 12/16/2016 HISTORY AND PHYSICAL: This is a 81-year-old male patient who apparently stopped eating, drinking. Following this, the patient became lethargic. The patient was brought to the Emergency Room. The patient is admitted, has sinus bradycardia. PAST MEDICAL HISTORY: Iron deficiency anemia, psychosis, BPH, schizoaffective disorder, and anxiety. FAMILY HISTORY: Unremarkable. SOCIAL HISTORY: No history of smoking or alcohol abuse. ALLERGIES: None. PHYSICAL EXAMINATION: VITAL SIGNS: Blood pressure 130/80, pulse 68, and respirations 28. HEAD: Normocephalic. No lumps or bumps. EYES: Pupils are equal and reactive to light. Fundi show AV nicking, sclerae white, and conjunctivae pink. NECK: Carotid 2+. Normal upstroke. JVD flat. Thyroid not palpable. Lymph nodes not palpable. CHEST: Shows increased AP diameter. No kyphosis or scoliosis. LUNGS: Bilateral bronchovesicular breath sounds. HEART: PMI fifth intercostal space with lateral to midclavicular line. S1, S2. No S3, S4. Systolic murmur, grade 2/6, lower left sternal border without radiation. ABDOMEN: Soft. Liver and spleen not palpable. No organomegaly. Bowel sounds active. NEUROLOGIC: Unremarkable. EXTREMITIES: Peripheral pulses 2+. No pedal edema. CLINICAL IMPRESSION: Sinus bradycardia, schizoaffective disorder, psychosis, benign prostatic hyperplasia, iron deficiency anemia, and anxiety. PLAN: The patient will have TSH level, echocardiogram. I will monitor the patient on telemetry bed. [facility]# [id number]
[2016-12-17] MEDS: 0.9% NS w/20 mEq KCL 1,000 ML IV SCH (00:02)
[2016-12-17 05:35] LABS: ANION GAP 10.6 (7.0-16.0); BUN - UREA NITROGEN 20 mg/dL (7-25); CALCIUM SERUM 9.3 mg/dL (8.6-10.3); CARBON DIOXIDE 24.3 mEq/L (21.0-31.0); CHLORIDE 114 mEq/L (98-107); GLUCOSE 116 mg/dL (70-105); POTASSIUM SERUM 3.9 mEq/L (3.5-5.1); SODIUM SERUM 145 mEq/L (136-145)
[2016-12-17] MEDS: Aspirin 81mg Chewable Tab PO SCH (08:37)
[2016-12-17] MEDS: Multivitamin Tab PO SCH (08:37)
--- NOTE | 2016-12-17 10:28 | Progress Notes ---
DATE: 12/17/2016 SUBJECTIVE: Chart reviewed and the patient interviewed. Also discussed the patient's condition with the staff and reviewed records and labs. The patient seems to be slightly calmer than before, but he is still having episodes of agitation and irritability. The patient also still needs redirections. The patient also still has anxiety and mood swings. Otherwise, the patient is compliant with taking his medications with no side effects of Depakote, or Aricept Namenda. Also, the patient continued to take Benadryl and Ativan on a p.r.n. basis. I spoke with patient's daughter yesterday in length about treatment of the patient. The patient responds well to Benadryl and Ativan. The patient is already taking both on a p.r.n. basis. We will get a Depakote blood level. We will continue to follow up closely. JOB# [id number]
--- NOTE | 2016-12-17 11:28 | General Progress Note ---
Subjective - Review of Systems Events since last encounter: patient in no distress Objective - Results Result Diagrams: 12/15/16 13:15 12/17/16 04:45 Recent Labs: Laboratory Last Values WBC 6.8 Th/cmm (4.8-10.8) 12/15/16 13:15 RBC 4.04 Mil/cmm (3.80-5.80) 12/15/16 13:15 Hgb 12.4 gm/dL (12-16) 12/15/16 13:15 Hct 37.3 % (41.0-60) L 12/15/16 13:15 MCV 92.5 fl (80-99) 12/15/16 13:15 MCH 30.7 pg (27.0-31.0) 12/15/16 13:15 MCHC Differential 33.2 pg (28.0-36.0) 12/15/16 13:15 RDW 13.4 % (11.5-20.0) 12/15/16 13:15 Plt Count 175 Th/cmm (150-400) 12/15/16 13:15 MPV 8.2 fl 12/15/16 13:15 Neutrophils % 60.8 % (40.0-80.0) 12/15/16 13:15 Lymphocytes % 26.9 % (20.0-50.0) 12/15/16 13:15 Monocytes % 8.7 % (2.0-10.0) 12/15/16 13:15 Eosinophils % 3.2 % (0.0-5.0) 12/15/16 13:15 Basophils % 0.4 % (0.0-2.0) 12/15/16 13:15 PT 10.8 SECONDS (9.5-11.5) 12/15/16 13:15 INR 1.04 (0.5-1.4) 12/15/16 13:15 Sodium 145 mEq/L (136-145) 12/17/16 04:45 Potassium 3.9 mEq/L (3.5-5.1) 12/17/16 04:45 Chloride 114 mEq/L (98-107) H 12/17/16 04:45 Carbon Dioxide 24.3 mEq/L (21.0-31.0) 12/17/16 04:45 Anion Gap 10.6 (7.0-16.0) 12/17/16 04:45 BUN 20 mg/dL (7-25) 12/17/16 04:45 Creatinine 1.0 mg/dL (0.7-1.3) 12/17/16 04:45 Est GFR ( Amer) TNP 12/17/16 04:45 Est GFR (Non-Af Amer) TNP 12/17/16 04:45 BUN/Creatinine Ratio 20.0 12/17/16 04:45 Glucose 116 mg/dL (70-105) H 12/17/16 04:45 Calcium 9.3 mg/dL (8.6-10.3) 12/17/16 04:45 Total Bilirubin 0.6 mg/dL (0.3-1.0) 12/15/16 13:15 AST 18 U/L (13-39) 12/15/16 13:15 ALT 14 U/L (7-52) 12/15/16 13:15 Alkaline Phosphatase 29 U/L (34-104) L 12/15/16 13:15 Troponin I ng/mL (0.01-0.05) 12/15/16 13:15 Total Protein 6.3 gm/dL (6.0-8.3) 12/15/16 13:15 Albumin < 1.5 gm/dL (4.2-5.5) L 12/15/16 13:15 Globulin 4.8 gm/dL 12/15/16 13:15 Albumin/Globulin Ratio 0.3 (1.0-1.8) L 12/15/16 13:15 Triglycerides 99 mg/dL (<150) 12/15/16 13:15 Cholesterol 145 mg/dL (<200) 12/15/16 13:15 LDL Cholesterol Direct 104 mg/dL (75-193) 12/15/16 13:15 HDL Cholesterol 42 mg/dL (23-92) 12/15/16 13:15 TSH 2.48 uIU/ml (0.34-5.60) 12/15/16 13:15 Urine Source CLEAN C 12/15/16 16:00 Urine Color YELLOW 12/15/16 16:00 Urine Clarity CLEAR (CLEAR) 12/15/16 16:00 Urine pH 7.0 (4.6 - 8.0) 12/15/16 16:00 Ur Specific [place] 1.010 (1.005-1.030) 12/15/16 16:00 Urine Protein NEGATIVE mg/dL (NEGATIVE) 12/15/16 16:00 Urine Glucose (UA) NEGATIVE mg/dL (NEGATIVE) 12/15/16 16:00 Urine Ketones NEGATIVE mg/dL (NEGATIVE) 12/15/16 16:00 Urine Blood TRACE (NEGATIVE) 12/15/16 16:00 Urine Nitrate NEGATIVE (NEGATIVE) 12/15/16 16:00 Urine Bilirubin NEGATIVE (NEGATIVE) 12/15/16 16:00 Urine Urobilinogen 0.2 E.U./dL (0.2 - 1.0) 12/15/16 16:00 Ur Leukocyte Esterase NEGATIVE (NEGATIVE) 12/15/16 16:00 Urine RBC 2-5 /hpf (0-5) H 12/15/16 16:00 Urine WBC 0-2 /hpf (0-5) 12/15/16 16:00 Ur Epithelial Cells OCCASIONAL /lpf (FEW) 12/15/16 16:00 Urine Bacteria FEW /hpf (NONE SEEN) 12/15/16 16:00 Urine Mucus FEW /lpf (FEW) 12/15/16 16:00 Valproic Acid 36.4 ug/mL (50.0-100.0) L 12/17/16 04:45 HIV 1&2 Antibody Screen NEGATIVE (NEG) 12/17/16 04:45 - Physical Exam Vitals and I&O: Vital Signs Temp 97.8 F 12/17/16 08:00 Pulse 89 12/17/16 08:00 Resp 16 12/17/16 08:00 BP 148/75 12/17/16 08:00 Pulse Ox 97 12/16/16 23:47 Intake & Output 12/16/16 12/17/16 12/17/16 18:59 06:59 18:59 Intake Total 1000 972.5 Balance 1000 972.5 Intake: Intake, IV Amount 1000 972.5 0.9% NS w/20 mEq KCL 1, 1000 972.5 000 ml @ 75 mls/hr IV . [id number] [facility] Rx#:[id number] Active Medications: Current Medications Acetaminophen (Tylenol) 650 mg PO Q4H PRN PRN Reason: Pain Stop: 02/13/17 18:04 Last Admin: 12/16/16 04:49 Dose: 650 mg Al Hydrox/Mg Hydrox/Simethicone (Maalox) 30 ml PO Q4HR PRN PRN Reason: GI DISTRESS Stop: 02/13/17 18:04 Aspirin (Aspirin Chewable) 81 mg PO DAILY ARPITA Stop: 02/14/17 08:59 Last Admin: 12/17/16 08:37 Dose: 81 mg Diphenhydramine HCl (Benadryl) 25 mg PO QID PRN PRN Reason: Agitation Stop: 02/14/17 09:36 Diphenhydramine HCl (Benadryl 50 Mg/Ml) 25 mg IVP Q6HR PRN PRN Reason: Agitation if not tolerate po Stop: 02/14/17 11:14 Last Admin: 12/17/16 10:21 Dose: 25 mg Divalproex Sodium (Depakote Dr) 250 mg PO DAILY ARPITA PRN Reason: Protocol Stop: 02/14/17 08:59 Last Admin: 12/17/16 08:37 Dose: 250 mg Divalproex Sodium (Depakote Dr) 500 mg PO HS ARPITA PRN Reason: Protocol Stop: 02/13/17 20:59 Last Admin: 12/16/16 21:14 Dose: 500 mg Docusate Sodium (Colace) 100 mg PO BID ARPITA Stop: 02/13/17 18:04 Last Admin: 12/17/16 08:37 Dose: 100 mg Donepezil HCl (Aricept) 5 mg PO HS ARPITA Stop: 02/13/17 20:59 Last Admin: 12/16/16 21:14 Dose: 5 mg Fluoxetine HCl (Prozac) 10 mg PO DAILY ARPITA PRN Reason: Protocol Stop: 02/14/17 08:59 Last Admin: 12/17/16 08:37 Dose: 10 mg Potassium Chloride/Sodium Chloride (0.9% Ns W/20 Meq Kcl) 1,000 mls @ 75 mls/ hr IV .[id number] ARPITA Stop: 02/13/17 18:04 Last Admin: 12/17/16 00:02 Dose: 75 mls/hr Lorazepam (Ativan) 1 mg PO Q4HR PRN; Protocol PRN Reason: Anxiety Stop: 02/13/17 18:04 Last Admin: 12/16/16 16:06 Dose: 1 mg Memantine (Namenda) 10 mg PO DAILY [facility] Stop: 02/14/17 08:59 Last Admin: 12/17/16 08:37 Dose: 10 mg Multivitamins/Vitamin C (Theragran) 1 tab PO DAILY ARPITA Stop: 02/14/17 08:59 Last Admin: 12/17/16 08:37 Dose: 1 tab Senna (Senna) 17.2 mg PO HS PRN PRN Reason: Constipation Stop: 02/13/17 18:04 Tamsulosin HCl (Flomax) 0.4 mg PO DAILY [facility] Stop: 02/14/17 08:59 Last Admin: 12/17/16 08:37 Dose: 0.4 mg General: Alert, Other (confused) HEENT: PERRLA Cardiovascular: Normal S1, Normal S2 (bradycardia) Abdomen: Bowel sounds, Soft Assessment/Plan - Problem List Patient Problems: All Active Problems DEMENTIA (Acute) HTN (Acute) PSYCHOSIS (Acute) - Assessment Assessment: skin lesions on face Nutritional Asmnt/Malnutr-PDOC - Dietary Evaluation Malnutrition Findings (Please click <Entered> for more info): Nutritional Asmnt/Malnutrition Start: 12/16/16 11: 42 Text: Status: Complete Freq: Document 12/16/16 11:42 PRESTON (Rec: 12/16/16 11:44 [email or web address] GARCIA FN) Nutritional Asmnt/Malnutrition Patient General Information Nutritional Screening Consult Diagnosis Sinus Bradycardia Pertinent Medical Hx/Surgical Hx depression, dementia, hypertension Subjective Information Consult received for "refused to eat and drink". Per H&P, patient is from [facility] Home has not been able to eat or drink for several days. Per nursing notes, 2+ edema noted on lower left extremities. Patient has 1:1 sitter. Patient asleep at time of visit with lunch tray just arriving. Patient noted to be edentulous and have moderate temporal wasting. Current Diet Order/ Nutrition Support Cardiac Patient / S.O Not Indicated Pertinent Medications maalox, colace, MVI w/C, Potassium Chloride/Sodium Chloride Pertinent Labs Albumin <1.5 Nutritional Hx/Data Height 1.96 m Height (Calculated Centimeters) 195.6 Current Weight (lbs) 78.925 kg Weight (Calculated Kilograms) 78.9 Weight (Calculated Grams) 06251.1 [place] Body Weight 208 % [place] Body Weight 83 Recent Weight Change No Weight Status Approriate GI Symptoms GI Symptoms None Food Allergies No Cultural/Ethnic/[employer] Belief None indicated Usual diet at home Unknown Skin Integrity/Comment: Manpreet Boykin Current %PO Poor (25-49%) Estimated Nutritional Goals BEE in Kcals: Using Current wt Calories/Kcals/Kg (30-35 kcal/kg)Using current body weight 79kg Kcals Calculated 0678-8168 kcal/day - 83% IBW Protein: Using Current wt Protein g/k.2-1.5 gm/kg (Using current body weight 79kg)- hypoalbuminemia, edema Protein Calculated 95-115 gm/day Fluid: ml 8436-2378 ml/day (25-30 ml/kg) - 2+ edema noted Nutritional Problem 2. Problem Problem Malnutrition related to Etiology decreased oral intake aeb Signs/Symptoms: moderate temporal wasting, albumin <1.5, poor oral intake . 1. Problem Problem Inadquate oral intake related to Etiology possible confusion and/or decreased appetite aeb Signs/Symptoms: eating <75% of meals and H&P report of poor oral intake prior to admission, Albumin <1 .5 Malnutrition Alert Food and Nutrition Intake (Moderate) <75% est energy req 7days Food and Nutrition Intake (Severe) <50% est energy req 5days Body Fat Depletion (Non-Severe) Mild Depletion Muscle Mass (Non-Severe) Mild Depletion Fluid Accumulation (Severe) Moderate Fluid Retention Protein-Calorie Malnutrition Severe Intervention/Recommendation Comments 1. Consider modifying diet from Cardiac to 2gm sodium due to normal cholesterol labs. 2.Consider adding Boost 3/day with meals to supplement protein/calorie intake. Expected Outcomes/Goals Expected Outcomes/Goals Oral intake of >75% of meals, nutrition related labs normalize, weight stabilizes or trends toward ideal body weight. F/U as HR in 2-3 days (12/18- ) Physician Parameters for PEM Body Mass Index (BMI) 18 - 24 (Mild) Serum Albumin (g/dl) <2.4 (Severe)
--- NOTE | 2016-12-17 18:22 | Cardiology ---
12/17/2016 M-MODE ECHOCARDIOGRAM: Mitral valve, anterior leaflet of mitral valve shows normal excursion, EF velocity. Posterior leaflet of mitral valve shows normal excursion. Left ventricular posterior wall shows increased thickness, normal excursion. Interventricular septum shows increased thickness, normal excursion, hypertrophy of the left ventricle, ejection fraction 50%. Left atrium normal. Aortic root shows normal dimension, normal excursion of aortic leaflets. CONCLUSION: Hypertrophy of the left ventricle, ejection fraction 50%. 2D-ECHO: Long axis view showed normal sized left ventricle with hypertrophy of the left ventricle. Left atrium normal. Aortic root shows normal dimension, normal excursion of aortic leaflets. Short axis view of mitral valve normal. Short axis view of aortic valve normal. Apical four chamber view showed normal sized left ventricle, left atrium, right ventricle, right atrium, tricuspid and mitral valve. Ejection fraction 50%. CONCLUSION: Hypertrophy of the left ventricle, ejection fraction 50%. Doppler study shows prominent area consistent with full compliance of left ventricle. Mild mitral regurgitation and tricuspid regurgitation. [facility]# [id number]
--- NOTE | 2016-12-17 23:54 | Infectious Disease Prog Note ---
Infectious Disease Subjective - Review of Systems Service Date: 12/17/16 Subjective: There is no new change, there is no fever, no change in the macular rash. Infectious Disease Objective - Results Result Diagrams: 12/15/16 13:15 12/17/16 04:45 Recent Labs: Laboratory Last Values WBC 6.8 Th/cmm (4.8-10.8) 12/15/16 13:15 RBC 4.04 Mil/cmm (3.80-5.80) 12/15/16 13:15 Hgb 12.4 gm/dL (12-16) 12/15/16 13:15 Hct 37.3 % (41.0-60) L 12/15/16 13:15 MCV 92.5 fl (80-99) 12/15/16 13:15 MCH 30.7 pg (27.0-31.0) 12/15/16 13:15 MCHC Differential 33.2 pg (28.0-36.0) 12/15/16 13:15 RDW 13.4 % (11.5-20.0) 12/15/16 13:15 Plt Count 175 Th/cmm (150-400) 12/15/16 13:15 MPV 8.2 fl 12/15/16 13:15 Neutrophils % 60.8 % (40.0-80.0) 12/15/16 13:15 Lymphocytes % 26.9 % (20.0-50.0) 12/15/16 13:15 Monocytes % 8.7 % (2.0-10.0) 12/15/16 13:15 Eosinophils % 3.2 % (0.0-5.0) 12/15/16 13:15 Basophils % 0.4 % (0.0-2.0) 12/15/16 13:15 PT 10.8 SECONDS (9.5-11.5) 12/15/16 13:15 INR 1.04 (0.5-1.4) 12/15/16 13:15 Sodium 145 mEq/L (136-145) 12/17/16 04:45 Potassium 3.9 mEq/L (3.5-5.1) 12/17/16 04:45 Chloride 114 mEq/L (98-107) H 12/17/16 04:45 Carbon Dioxide 24.3 mEq/L (21.0-31.0) 12/17/16 04:45 Anion Gap 10.6 (7.0-16.0) 12/17/16 04:45 BUN 20 mg/dL (7-25) 12/17/16 04:45 Creatinine 1.0 mg/dL (0.7-1.3) 12/17/16 04:45 Est GFR ( Amer) TNP 12/17/16 04:45 Est GFR (Non-Af Amer) TNP 12/17/16 04:45 BUN/Creatinine Ratio 20.0 12/17/16 04:45 Glucose 116 mg/dL (70-105) H 12/17/16 04:45 Calcium 9.3 mg/dL (8.6-10.3) 12/17/16 04:45 Total Bilirubin 0.6 mg/dL (0.3-1.0) 12/15/16 13:15 AST 18 U/L (13-39) 12/15/16 13:15 ALT 14 U/L (7-52) 12/15/16 13:15 Alkaline Phosphatase 29 U/L (34-104) L 12/15/16 13:15 Troponin I ng/mL (0.01-0.05) 12/15/16 13:15 Total Protein 6.3 gm/dL (6.0-8.3) 12/15/16 13:15 Albumin < 1.5 gm/dL (4.2-5.5) L 12/15/16 13:15 Globulin 4.8 gm/dL 12/15/16 13:15 Albumin/Globulin Ratio 0.3 (1.0-1.8) L 12/15/16 13:15 Triglycerides 99 mg/dL (<150) 12/15/16 13:15 Cholesterol 145 mg/dL (<200) 12/15/16 13:15 LDL Cholesterol Direct 104 mg/dL (75-193) 12/15/16 13:15 HDL Cholesterol 42 mg/dL (23-92) 12/15/16 13:15 TSH 2.48 uIU/ml (0.34-5.60) 12/15/16 13:15 Urine Source CLEAN C 12/15/16 16:00 Urine Color YELLOW 12/15/16 16:00 Urine Clarity CLEAR (CLEAR) 12/15/16 16:00 Urine pH 7.0 (4.6 - 8.0) 12/15/16 16:00 Ur Specific [place] 1.010 (1.005-1.030) 12/15/16 16:00 Urine Protein NEGATIVE mg/dL (NEGATIVE) 12/15/16 16:00 Urine Glucose (UA) NEGATIVE mg/dL (NEGATIVE) 12/15/16 16:00 Urine Ketones NEGATIVE mg/dL (NEGATIVE) 12/15/16 16:00 Urine Blood TRACE (NEGATIVE) 12/15/16 16:00 Urine Nitrate NEGATIVE (NEGATIVE) 12/15/16 16:00 Urine Bilirubin NEGATIVE (NEGATIVE) 12/15/16 16:00 Urine Urobilinogen 0.2 E.U./dL (0.2 - 1.0) 12/15/16 16:00 Ur Leukocyte Esterase NEGATIVE (NEGATIVE) 12/15/16 16:00 Urine RBC 2-5 /hpf (0-5) H 12/15/16 16:00 Urine WBC 0-2 /hpf (0-5) 12/15/16 16:00 Ur Epithelial Cells OCCASIONAL /lpf (FEW) 12/15/16 16:00 Urine Bacteria FEW /hpf (NONE SEEN) 12/15/16 16:00 Urine Mucus FEW /lpf (FEW) 12/15/16 16:00 Valproic Acid 36.4 ug/mL (50.0-100.0) L 12/17/16 04:45 HIV 1&2 Antibody Screen NEGATIVE (NEG) 12/17/16 04:45 - Physical Exam Vitals and I&O: Vital Signs Temp 97 F 12/17/16 16:00 Pulse 78 12/17/16 16:00 Resp 18 12/17/16 16:00 BP 153/87 12/17/16 16:00 Pulse Ox 97 12/17/16 16:00 Intake & Output 12/17/16 12/17/16 12/18/16 06:59 18:59 06:59 Intake Total 972.5 300 Output Total 0 Balance 972.5 300 Weight (lbs) 79.016 kg Intake: Intake, IV Amount 972.5 0.9% NS w/20 mEq KCL 1, 972.5 000 ml @ 75 mls/hr IV . [id number] [facility] Rx#:[id number] Oral 300 Output: Stool 0 Other: # Voids 2 Active Medications: Current Medications Acetaminophen (Tylenol) 650 mg PO Q4H PRN PRN Reason: Pain Stop: 02/13/17 18:04 Last Admin: 12/16/16 04:49 Dose: 650 mg Al Hydrox/Mg Hydrox/Simethicone (Maalox) 30 ml PO Q4HR PRN PRN Reason: GI DISTRESS Stop: 02/13/17 18:04 Aspirin (Aspirin Chewable) 81 mg PO DAILY ARPITA Stop: 02/14/17 08:59 Last Admin: 12/17/16 08:37 Dose: 81 mg Diphenhydramine HCl (Benadryl) 25 mg PO QID PRN PRN Reason: Agitation Stop: 02/14/17 09:36 Last Admin: 12/17/16 13:11 Dose: 25 mg Diphenhydramine HCl (Benadryl 50 Mg/Ml) 25 mg IVP Q6HR PRN PRN Reason: Agitation if not tolerate po Stop: 02/14/17 11:14 Last Admin: 12/17/16 10:21 Dose: 25 mg Divalproex Sodium (Depakote Dr) 250 mg PO DAILY ARPITA PRN Reason: Protocol Stop: 02/14/17 08:59 Last Admin: 12/17/16 08:37 Dose: 250 mg Divalproex Sodium (Depakote Dr) 500 mg PO HS ARPITA PRN Reason: Protocol Stop: 02/13/17 20:59 Last Admin: 12/17/16 21:41 Dose: 500 mg Docusate Sodium (Colace) 100 mg PO BID ARPITA Stop: 02/13/17 18:04 Last Admin: 12/17/16 16:34 Dose: 100 mg Donepezil HCl (Aricept) 5 mg PO HS ARPITA Stop: 02/13/17 20:59 Last Admin: 12/17/16 21:41 Dose: 5 mg Fluoxetine HCl (Prozac) 10 mg PO DAILY ARPITA PRN Reason: Protocol Stop: 02/14/17 08:59 Last Admin: 12/17/16 08:37 Dose: 10 mg Potassium Chloride/Sodium Chloride (0.9% Ns W/20 Meq Kcl) 1,000 mls @ 75 mls/ hr IV .[id number] ARPITA Stop: 02/13/17 18:04 Last Admin: 12/17/16 00:02 Dose: 75 mls/hr Lorazepam (Ativan) 1 mg PO Q4HR PRN; Protocol PRN Reason: Anxiety Stop: 02/13/17 18:04 Last Admin: 12/17/16 11:53 Dose: 1 mg Memantine (Namenda) 10 mg PO DAILY ARPITA Stop: 02/14/17 08:59 Last Admin: 12/17/16 08:37 Dose: 10 mg Multivitamins/Vitamin C (Theragran) 1 tab PO DAILY ARPITA Stop: 02/14/17 08:59 Last Admin: 12/17/16 08:37 Dose: 1 tab Senna (Senna) 17.2 mg PO HS PRN PRN Reason: Constipation Stop: 02/13/17 18:04 Tamsulosin HCl (Flomax) 0.4 mg PO DAILY ARPITA Stop: 02/14/17 08:59 Last Admin: 12/17/16 08:37 Dose: 0.4 mg General: no acute distress, well developed, well nourished HEENT: atraumatic, normocephalic Neck: supple, no thyromegaly Cardiovascular: S1S2, regular Lungs: clear to auscultation bilaterally, clear to percussion Abdomen: soft, bowel sounds, no tender, no distended Extremities: no cyanosis, no clubbing, no edema Neurological: awake Skin: intact, rash (macular rash all over the body.) Infectious Disease Assmt/Plan - Problem List Patient Problems: All Active Problems DEMENTIA (Acute) HTN (Acute) PSYCHOSIS (Acute) - Assessment Assessment: Macular rash. Psychosis - Plan Plan: Skin biopsy HIV screen hsv serology. RPR Vit B12 TSH. Nutritional Asmnt/Malnutr-PDOC - Dietary Evaluation Malnutrition Findings (Please click <Entered> for more info): Nutritional Asmnt/Malnutrition Start: 12/16/16 11: 42 Text: Status: Complete Freq: Document 12/16/16 11:42 PRESTON (Rec: 12/16/16 11:44 PRESTON GARCIA- [email or web address]) Nutritional Asmnt/Malnutrition Patient General Information Nutritional Screening Consult Diagnosis Sinus Bradycardia Pertinent Medical Hx/Surgical Hx depression, dementia, hypertension Subjective Information Consult received for "refused to eat and drink". Per H&P, patient is from [facility] Home has not been able to eat or drink for several days. Per nursing notes, 2+ edema noted on lower left extremities. Patient has 1:1 sitter. Patient asleep at time of visit with lunch tray just arriving. Patient noted to be edentulous and have moderate temporal wasting. Current Diet Order/ Nutrition Support Cardiac Patient / S.O Not Indicated Pertinent Medications maalox, colace, MVI w/C, Potassium Chloride/Sodium Chloride Pertinent Labs Albumin <1.5 Nutritional Hx/Data Height 1.96 m Height (Calculated Centimeters) 195.6 Current Weight (lbs) 78.925 kg Weight (Calculated Kilograms) 78.9 Weight (Calculated Grams) 09471.1 [place] Body Weight 208 % [place] Body Weight 83 Recent Weight Change No Weight Status Approriate GI Symptoms GI Symptoms None Food Allergies No Cultural/Ethnic/Spiritism Belief None indicated Usual diet at home Unknown Skin Integrity/Comment: Manpreet Boykin Current %PO Poor (25-49%) Estimated Nutritional Goals BEE in Kcals: Using Current wt Calories/Kcals/Kg (30-35 kcal/kg)Using current body weight 79kg Kcals Calculated 6581-8263 kcal/day - 83% IBW Protein: Using Current wt Protein g/k.2-1.5 gm/kg (Using current body weight 79kg)- hypoalbuminemia, edema Protein Calculated 95-115 gm/day Fluid: ml 0350-7457 ml/day (25-30 ml/kg) - 2+ edema noted Nutritional Problem 2. Problem Problem Malnutrition related to Etiology decreased oral intake aeb Signs/Symptoms: moderate temporal wasting, albumin <1.5, poor oral intake . 1. Problem Problem Inadquate oral intake related to Etiology possible confusion and/or decreased appetite aeb Signs/Symptoms: eating <75% of meals and H&P report of poor oral intake prior to admission, Albumin <1 .5 Malnutrition Alert Food and Nutrition Intake (Moderate) <75% est energy req 7days Food and Nutrition Intake (Severe) <50% est energy req 5days Body Fat Depletion (Non-Severe) Mild Depletion Muscle Mass (Non-Severe) Mild Depletion Fluid Accumulation (Severe) Moderate Fluid Retention Protein-Calorie Malnutrition Severe Intervention/Recommendation Comments 1. Consider modifying diet from Cardiac to 2gm sodium due to normal cholesterol labs. 2.Consider adding Boost 3/day with meals to supplement protein/calorie intake. Expected Outcomes/Goals Expected Outcomes/Goals Oral intake of >75% of meals, nutrition related labs normalize, weight stabilizes or trends toward ideal body weight. F/U as HR in 2-3 days (12/18- ) Physician Parameters for PEM Body Mass Index (BMI) 18 - 24 (Mild) Serum Albumin (g/dl) <2.4 (Severe)
[2016-12-18] MEDS: Multivitamin Tab PO SCH (08:30)
[2016-12-18] MEDS: Aspirin 81mg Chewable Tab PO SCH (08:31)
--- NOTE | 2016-12-18 08:43 | General Progress Note ---
Subjective - Review of Systems Subjective: awake, denies any pain Objective - Results Result Diagrams: 12/15/16 13:15 12/17/16 04:45 Recent Labs: Laboratory Last Values WBC 6.8 Th/cmm (4.8-10.8) 12/15/16 13:15 RBC 4.04 Mil/cmm (3.80-5.80) 12/15/16 13:15 Hgb 12.4 gm/dL (12-16) 12/15/16 13:15 Hct 37.3 % (41.0-60) L 12/15/16 13:15 MCV 92.5 fl (80-99) 12/15/16 13:15 MCH 30.7 pg (27.0-31.0) 12/15/16 13:15 MCHC Differential 33.2 pg (28.0-36.0) 12/15/16 13:15 RDW 13.4 % (11.5-20.0) 12/15/16 13:15 Plt Count 175 Th/cmm (150-400) 12/15/16 13:15 MPV 8.2 fl 12/15/16 13:15 Neutrophils % 60.8 % (40.0-80.0) 12/15/16 13:15 Lymphocytes % 26.9 % (20.0-50.0) 12/15/16 13:15 Monocytes % 8.7 % (2.0-10.0) 12/15/16 13:15 Eosinophils % 3.2 % (0.0-5.0) 12/15/16 13:15 Basophils % 0.4 % (0.0-2.0) 12/15/16 13:15 PT 10.8 SECONDS (9.5-11.5) 12/15/16 13:15 INR 1.04 (0.5-1.4) 12/15/16 13:15 Sodium 145 mEq/L (136-145) 12/17/16 04:45 Potassium 3.9 mEq/L (3.5-5.1) 12/17/16 04:45 Chloride 114 mEq/L (98-107) H 12/17/16 04:45 Carbon Dioxide 24.3 mEq/L (21.0-31.0) 12/17/16 04:45 Anion Gap 10.6 (7.0-16.0) 12/17/16 04:45 BUN 20 mg/dL (7-25) 12/17/16 04:45 Creatinine 1.0 mg/dL (0.7-1.3) 12/17/16 04:45 Est GFR ( Amer) TNP 12/17/16 04:45 Est GFR (Non-Af Amer) TNP 12/17/16 04:45 BUN/Creatinine Ratio 20.0 12/17/16 04:45 Glucose 116 mg/dL (70-105) H 12/17/16 04:45 Calcium 9.3 mg/dL (8.6-10.3) 12/17/16 04:45 Total Bilirubin 0.6 mg/dL (0.3-1.0) 12/15/16 13:15 AST 18 U/L (13-39) 12/15/16 13:15 ALT 14 U/L (7-52) 12/15/16 13:15 Alkaline Phosphatase 29 U/L (34-104) L 12/15/16 13:15 Troponin I ng/mL (0.01-0.05) 12/15/16 13:15 Total Protein 6.3 gm/dL (6.0-8.3) 12/15/16 13:15 Albumin < 1.5 gm/dL (4.2-5.5) L 12/15/16 13:15 Globulin 4.8 gm/dL 12/15/16 13:15 Albumin/Globulin Ratio 0.3 (1.0-1.8) L 12/15/16 13:15 Triglycerides 99 mg/dL (<150) 12/15/16 13:15 Cholesterol 145 mg/dL (<200) 12/15/16 13:15 LDL Cholesterol Direct 104 mg/dL (75-193) 12/15/16 13:15 HDL Cholesterol 42 mg/dL (23-92) 12/15/16 13:15 TSH 2.48 uIU/ml (0.34-5.60) 12/15/16 13:15 Urine Source CLEAN C 12/15/16 16:00 Urine Color YELLOW 12/15/16 16:00 Urine Clarity CLEAR (CLEAR) 12/15/16 16:00 Urine pH 7.0 (4.6 - 8.0) 12/15/16 16:00 Ur Specific [place] 1.010 (1.005-1.030) 12/15/16 16:00 Urine Protein NEGATIVE mg/dL (NEGATIVE) 12/15/16 16:00 Urine Glucose (UA) NEGATIVE mg/dL (NEGATIVE) 12/15/16 16:00 Urine Ketones NEGATIVE mg/dL (NEGATIVE) 12/15/16 16:00 Urine Blood TRACE (NEGATIVE) 12/15/16 16:00 Urine Nitrate NEGATIVE (NEGATIVE) 12/15/16 16:00 Urine Bilirubin NEGATIVE (NEGATIVE) 12/15/16 16:00 Urine Urobilinogen 0.2 E.U./dL (0.2 - 1.0) 12/15/16 16:00 Ur Leukocyte Esterase NEGATIVE (NEGATIVE) 12/15/16 16:00 Urine RBC 2-5 /hpf (0-5) H 12/15/16 16:00 Urine WBC 0-2 /hpf (0-5) 12/15/16 16:00 Ur Epithelial Cells OCCASIONAL /lpf (FEW) 12/15/16 16:00 Urine Bacteria FEW /hpf (NONE SEEN) 12/15/16 16:00 Urine Mucus FEW /lpf (FEW) 12/15/16 16:00 Valproic Acid 36.4 ug/mL (50.0-100.0) L 12/17/16 04:45 RPR NONREACTIVE (NONREACTIVE) 12/15/16 13:15 HIV 1&2 Antibody Screen NEGATIVE (NEG) 12/17/16 04:45 - Physical Exam Vitals and I&O: Vital Signs Temp 97.2 F 12/18/16 04:00 Pulse 75 12/18/16 04:00 Resp 18 12/18/16 04:00 BP 159/80 12/18/16 04:00 Pulse Ox 97 12/18/16 04:00 Intake & Output 12/17/16 12/18/16 12/18/16 18:59 06:59 18:59 Intake Total 300 570 Output Total 0 Balance 300 570 Weight (lbs) 79.016 kg 79.651 kg Intake: Oral 300 570 Output: Stool 0 Other: # Voids 2 4 # Bowel Movements 1 Active Medications: Current Medications Acetaminophen (Tylenol) 650 mg PO Q4H PRN PRN Reason: Pain Stop: 02/13/17 18:04 Last Admin: 12/18/16 07:48 Dose: 650 mg Al Hydrox/Mg Hydrox/Simethicone (Maalox) 30 ml PO Q4HR PRN PRN Reason: GI DISTRESS Stop: 02/13/17 18:04 Aspirin (Aspirin Chewable) 81 mg PO DAILY ARPITA Stop: 02/14/17 08:59 Last Admin: 12/18/16 08:31 Dose: 81 mg Diphenhydramine HCl (Benadryl) 25 mg PO QID PRN PRN Reason: Agitation Stop: 02/14/17 09:36 Last Admin: 12/18/16 01:21 Dose: 25 mg Diphenhydramine HCl (Benadryl 50 Mg/Ml) 25 mg IVP Q6HR PRN PRN Reason: Agitation if not tolerate po Stop: 02/14/17 11:14 Last Admin: 12/17/16 10:21 Dose: 25 mg Divalproex Sodium (Depakote Dr) 250 mg PO DAILY ARPITA PRN Reason: Protocol Stop: 02/14/17 08:59 Last Admin: 12/18/16 08:31 Dose: 250 mg Divalproex Sodium (Depakote Dr) 500 mg PO HS ARPITA PRN Reason: Protocol Stop: 02/13/17 20:59 Last Admin: 12/17/16 21:41 Dose: 500 mg Docusate Sodium (Colace) 100 mg PO BID ARPITA Stop: 02/13/17 18:04 Last Admin: 12/18/16 08:31 Dose: 100 mg Donepezil HCl (Aricept) 5 mg PO HS ARPITA Stop: 02/13/17 20:59 Last Admin: 12/17/16 21:41 Dose: 5 mg Fluoxetine HCl (Prozac) 10 mg PO DAILY ARPITA PRN Reason: Protocol Stop: 02/14/17 08:59 Last Admin: 12/18/16 08:31 Dose: 10 mg Potassium Chloride/Sodium Chloride (0.9% Ns W/20 Meq Kcl) 1,000 mls @ 75 mls/ hr IV .[id number] ARPITA Stop: 02/13/17 18:04 Last Admin: 12/17/16 00:02 Dose: 75 mls/hr Lorazepam (Ativan) 1 mg PO Q4HR PRN; Protocol PRN Reason: Anxiety Stop: 02/13/17 18:04 Last Admin: 12/18/16 05:10 Dose: 1 mg Memantine (Namenda) 10 mg PO DAILY ARPITA Stop: 02/14/17 08:59 Last Admin: 12/18/16 08:31 Dose: 10 mg Multivitamins/Vitamin C (Theragran) 1 tab PO DAILY ARPITA Stop: 02/14/17 08:59 Last Admin: 12/18/16 08:30 Dose: 1 tab Senna (Senna) 17.2 mg PO HS PRN PRN Reason: Constipation Stop: 02/13/17 18:04 Tamsulosin HCl (Flomax) 0.4 mg PO DAILY ARPITA Stop: 02/14/17 08:59 Last Admin: 12/18/16 08:30 Dose: 0.4 mg General: Alert, Other (confused) HEENT: PERRLA Cardiovascular: Normal S1, Normal S2 (bradycardia) Abdomen: Bowel sounds, Soft Assessment/Plan - Problem List Patient Problems: All Active Problems DEMENTIA (Acute) HTN (Acute) PSYCHOSIS (Acute) - Assessment Assessment: skin lesions on face - Plan Plan: cpm Nutritional Asmnt/Malnutr-PDOC - Dietary Evaluation Malnutrition Findings (Please click <Entered> for more info): Nutritional Asmnt/Malnutrition Start: 12/16/16 11: 42 Text: Status: Complete Freq: Document 12/16/16 11:42 PRESTON (Rec: 12/16/16 11:44 PRESTON GARCIA- [email or web address]) Nutritional Asmnt/Malnutrition Patient General Information Nutritional Screening Consult Diagnosis Sinus Bradycardia Pertinent Medical Hx/Surgical Hx depression, dementia, hypertension Subjective Information Consult received for "refused to eat and drink". Per H&P, patient is from [facility] has not been able to eat or drink for several days. Per nursing notes, 2+ edema noted on lower left extremities. Patient has 1:1 sitter. Patient asleep at time of visit with lunch tray just arriving. Patient noted to be edentulous and have moderate temporal wasting. Current Diet Order/ Nutrition Support Cardiac Patient / S.O Not Indicated Pertinent Medications maalox, colace, MVI w/C, Potassium Chloride/Sodium Chloride Pertinent Labs Albumin <1.5 Nutritional Hx/Data Height 1.96 m Height (Calculated Centimeters) 195.6 Current Weight (lbs) 78.925 kg Weight (Calculated Kilograms) 78.9 Weight (Calculated Grams) 97112.1 [place] Body Weight 208 % [place] Body Weight 83 Recent Weight Change No Weight Status Approriate GI Symptoms GI Symptoms None Food Allergies No Cultural/Ethnic/Sabianism Belief None indicated Usual diet at home Unknown Skin Integrity/Comment: Manpreet Boykin Current %PO Poor (25-49%) Estimated Nutritional Goals BEE in Kcals: Using Current wt Calories/Kcals/Kg (30-35 kcal/kg)Using current body weight 79kg Kcals Calculated 6720-8957 kcal/day - 83% IBW Protein: Using Current wt Protein g/k.2-1.5 gm/kg (Using current body weight 79kg)- hypoalbuminemia, edema Protein Calculated 95-115 gm/day Fluid: ml 6992-3579 ml/day (25-30 ml/kg) - 2+ edema noted Nutritional Problem 2. Problem Problem Malnutrition related to Etiology decreased oral intake aeb Signs/Symptoms: moderate temporal wasting, albumin <1.5, poor oral intake . 1. Problem Problem Inadquate oral intake related to Etiology possible confusion and/or decreased appetite aeb Signs/Symptoms: eating <75% of meals and H&P report of poor oral intake prior to admission, Albumin <1 .5 Malnutrition Alert Food and Nutrition Intake (Moderate) <75% est energy req 7days Food and Nutrition Intake (Severe) <50% est energy req 5days Body Fat Depletion (Non-Severe) Mild Depletion Muscle Mass (Non-Severe) Mild Depletion Fluid Accumulation (Severe) Moderate Fluid Retention Protein-Calorie Malnutrition Severe Intervention/Recommendation Comments 1. Consider modifying diet from Cardiac to 2gm sodium due to normal cholesterol labs. 2.Consider adding Boost 3/day with meals to supplement protein/calorie intake. Expected Outcomes/Goals Expected Outcomes/Goals Oral intake of >75% of meals, nutrition related labs normalize, weight stabilizes or trends toward ideal body weight. F/U as HR in 2-3 days (12/18- ) Physician Parameters for PEM Body Mass Index (BMI) 18 - 24 (Mild) Serum Albumin (g/dl) <2.4 (Severe)
--- NOTE | 2016-12-18 15:11 | Consultation ---
DATE OF CONSULTATION: 12/18/2016 REFERRING PHYSICIAN: Dr. Murphy. REASON FOR CONSULTATION: Macular rash, extremities. Thank you for referring this patient to me. HISTORY OF PRESENT ILLNESS: This is a 81-year-old male who comes from [facility] and because of history of depression, dementia, he is being transferred to the psychiatric unit of this facility. Among other things, he has developed some macular rashes of both lower extremities. Abdomen is free of rash. He is unable to furnish any information. Additionally, he has sinus bradycardia, the slow was last night was 48 and his echocardiogram has ejection fraction of 50%. PHYSICAL EXAMINATION: The patient unable to answer questions, is awake and moves about constantly. The rashes are noted mostly in the lower extremities, none in the abdomen. The patient has been seen by Dr. Mikhail Gayle and no recommendation has been made to biopsy any of this lesion for diagnostic purposes. We will follow as needed. [facility]# [id number]
--- NOTE | 2016-12-18 15:47 | Progress Notes ---
DATE: 12/18/2016 SUBJECTIVE: Chart reviewed and the patient interviewed. Also discussed the patient's condition with the staff and reviewed records and labs. The patient is still irritable and is still anxious, but seems to be slightly calmer. The patient also is easier to redirect. He is interacting slightly more and tries to answer questions. He is still agitated and irritable. ASSESSMENT: The patient is still psychotic and agitated. TREATMENT PLAN: Continue monitoring his behavior and his condition and continue adjusting psychotropic medications and working on behavioral modification. JOB# [id number]
--- NOTE | 2016-12-18 16:11 | Progress Notes ---
DATE: 12/16/2016 SUBJECTIVE: The patient was seen in his room. The patient appears to be awake, alert, oriented x 1-2 with episodes of confusion and agitation. The patient has a sitter. The patient is currently on a one-to-one sitter for safety. Otherwise, the patient appears to be comfortable and in no acute distress. OBJECTIVE: HEENT: Head: Atraumatic and normocephalic. Eyes: Bilateral conjunctivae are clear. Bilateral pupils are equally round and reactive. NECK: Supple. No JVD. CARDIOVASCULAR: S1 and S2, without murmur. PULMONARY: Decreased lung sounds. GASTROINTESTINAL: Soft and nontender without guarding. Positive bowel sounds. MUSCULOSKELETAL: No clubbing, no cyanosis noted. ASSESSMENT: 1. Hypertension. 2. Benign prostatic hypertrophy. 3. Dementia. 4. Bipolar disorder. 5. Muscle weakness. 6. Unsteady gait. PLAN: We will continue current treatment plan. We will continue one-to-one sitter to monitor the patient's condition and behavior. Treatment plans were discussed with the patient's nurse. Treatment plans were discussed with Dr. Murphy. JOB# [id number]
[2016-12-19 05:11] LABS: HERPES SIMPLEX 2 AB IGG <0.91 index (0.00-0.90)
[2016-12-19 05:25] LABS: % BASOPHILS 0.7 % (0.0-2.0); % EOSINOPHILS 11.4 % (0.0-5.0); % LYMPHOCYTES 19.8 % (20.0-50.0); % MONOCYTES 9.9 % (2.0-10.0); % NEUTROPHILS 58.2 % (40.0-80.0); HEMATOCRIT 34.7 % (41.0-60); HEMOGLOBIN 11.6 gm/dL (12-16); MEAN CELL VOLUME 92.9 fl (80-99); MEAN CORPUSCULAR HEMOGLOBIN 31.1 pg (27.0-31.0); MEAN CORPUSCULAR HGB CONC 33.5 pg (28.0-36.0); MEAN PLATELET VOLUME 8.8 fl; RED BLOOD COUNT 3.74 Mil/cmm (3.80-5.80); RED CELL DISTRIBUTION WIDTH 13.8 % (11.5-20.0)
[2016-12-19 05:27] LABS: PLATELET COUNT 138 Th/cmm (150-400); WHITE BLOOD COUNT 10.4 Th/cmm (4.8-10.8)
[2016-12-19 05:53] LABS: BUN - UREA NITROGEN 20 mg/dL (7-25); BUN/CREATININE RATIO 22.2; CALCIUM SERUM 9.3 mg/dL (8.6-10.3); CARBON DIOXIDE 31.7 mEq/L (21.0-31.0); CHLORIDE 111 mEq/L (98-107); CREATININE - SERUM 0.9 mg/dL (0.7-1.3); GLUCOSE 100 mg/dL (70-105); POTASSIUM SERUM 3.7 mEq/L (3.5-5.1); SODIUM SERUM 147 mEq/L (136-145)
[2016-12-19] MEDS: Aspirin 81mg Chewable Tab PO SCH (08:41)
[2016-12-19] MEDS: Multivitamin Tab PO SCH (08:41)
--- NOTE | 2016-12-19 08:48 | General Progress Note ---
Subjective - Review of Systems Events since last encounter: patient with h/o dementia patient remains depressed Subjective: awake, denies any pain Objective - Results Result Diagrams: 12/19/16 05:01 12/19/16 05:01 Recent Labs: Laboratory Last Values WBC 10.4 Th/cmm (4.8-10.8) D 12/19/16 05:01 RBC 3.74 Mil/cmm (3.80-5.80) L 12/19/16 05:01 Hgb 11.6 gm/dL (12-16) L 12/19/16 05:01 Hct 34.7 % (41.0-60) L 12/19/16 05:01 MCV 92.9 fl (80-99) 12/19/16 05:01 MCH 31.1 pg (27.0-31.0) H 12/19/16 05:01 MCHC Differential 33.5 pg (28.0-36.0) 12/19/16 05:01 RDW 13.8 % (11.5-20.0) 12/19/16 05:01 Plt Count 138 Th/cmm (150-400) L D 12/19/16 05:01 MPV 8.8 fl 12/19/16 05:01 Neutrophils % 58.2 % (40.0-80.0) 12/19/16 05:01 Lymphocytes % 19.8 % (20.0-50.0) L 12/19/16 05:01 Monocytes % 9.9 % (2.0-10.0) 12/19/16 05:01 Eosinophils % 11.4 % (0.0-5.0) H 12/19/16 05:01 Basophils % 0.7 % (0.0-2.0) 12/19/16 05:01 PT 10.8 SECONDS (9.5-11.5) 12/15/16 13:15 INR 1.04 (0.5-1.4) 12/15/16 13:15 Sodium 147 mEq/L (136-145) H 12/19/16 05:01 Potassium 3.7 mEq/L (3.5-5.1) 12/19/16 05:01 Chloride 111 mEq/L (98-107) H 12/19/16 05:01 Carbon Dioxide 31.7 mEq/L (21.0-31.0) H 12/19/16 05:01 Anion Gap 8.0 (7.0-16.0) 12/19/16 05:01 BUN 20 mg/dL (7-25) 12/19/16 05:01 Creatinine 0.9 mg/dL (0.7-1.3) 12/19/16 05:01 Est GFR ( Amer) TNP 12/19/16 05:01 Est GFR (Non-Af Amer) TNP 12/19/16 05:01 BUN/Creatinine Ratio 22.2 12/19/16 05:01 Glucose 100 mg/dL (70-105) 12/19/16 05:01 Calcium 9.3 mg/dL (8.6-10.3) 12/19/16 05:01 Total Bilirubin 0.6 mg/dL (0.3-1.0) 12/15/16 13:15 AST 18 U/L (13-39) 12/15/16 13:15 ALT 14 U/L (7-52) 12/15/16 13:15 Alkaline Phosphatase 29 U/L (34-104) L 12/15/16 13:15 Troponin I ng/mL (0.01-0.05) 12/15/16 13:15 Total Protein 6.3 gm/dL (6.0-8.3) 12/15/16 13:15 Albumin < 1.5 gm/dL (4.2-5.5) L 12/15/16 13:15 Globulin 4.8 gm/dL 12/15/16 13:15 Albumin/Globulin Ratio 0.3 (1.0-1.8) L 12/15/16 13:15 Triglycerides 99 mg/dL (<150) 12/15/16 13:15 Cholesterol 145 mg/dL (<200) 12/15/16 13:15 LDL Cholesterol Direct 104 mg/dL (75-193) 12/15/16 13:15 HDL Cholesterol 42 mg/dL (23-92) 12/15/16 13:15 Vitamin B12 439 pg/mL (211-946) 12/17/16 04:45 TSH 2.48 uIU/ml (0.34-5.60) 12/15/16 13:15 Urine Source CLEAN C 12/15/16 16:00 Urine Color YELLOW 12/15/16 16:00 Urine Clarity CLEAR (CLEAR) 12/15/16 16:00 Urine pH 7.0 (4.6 - 8.0) 12/15/16 16:00 Ur Specific [place] 1.010 (1.005-1.030) 12/15/16 16:00 Urine Protein NEGATIVE mg/dL (NEGATIVE) 12/15/16 16:00 Urine Glucose (UA) NEGATIVE mg/dL (NEGATIVE) 12/15/16 16:00 Urine Ketones NEGATIVE mg/dL (NEGATIVE) 12/15/16 16:00 Urine Blood TRACE (NEGATIVE) 12/15/16 16:00 Urine Nitrate NEGATIVE (NEGATIVE) 12/15/16 16:00 Urine Bilirubin NEGATIVE (NEGATIVE) 12/15/16 16:00 Urine Urobilinogen 0.2 E.U./dL (0.2 - 1.0) 12/15/16 16:00 Ur Leukocyte Esterase NEGATIVE (NEGATIVE) 12/15/16 16:00 Urine RBC 2-5 /hpf (0-5) H 12/15/16 16:00 Urine WBC 0-2 /hpf (0-5) 12/15/16 16:00 Ur Epithelial Cells OCCASIONAL /lpf (FEW) 12/15/16 16:00 Urine Bacteria FEW /hpf (NONE SEEN) 12/15/16 16:00 Urine Mucus FEW /lpf (FEW) 12/15/16 16:00 Valproic Acid 36.4 ug/mL (50.0-100.0) L 12/17/16 04:45 RPR NONREACTIVE (NONREACTIVE) 12/15/16 13:15 HSV I IgG Ab (Blot) 52.90 index (0.00-0.90) H 12/17/16 04:45 HSV II IgG Ab (Blot) <0.91 index (0.00-0.90) 12/17/16 04:45 HIV 1&2 Antibody Screen NEGATIVE (NEG) 12/17/16 04:45 - Physical Exam Vitals and I&O: Vital Signs Temp 98.2 F 12/19/16 04:00 Pulse 90 12/19/16 04:00 Resp 19 12/19/16 04:00 BP 116/88 12/19/16 04:00 Pulse Ox 98 12/19/16 04:00 Intake & Output 12/18/16 12/19/16 12/19/16 18:59 06:59 18:59 Intake Total 350 Balance 350 Weight (lbs) 79.379 kg Intake: Oral 350 Other: # Voids 3 Active Medications: Current Medications Acetaminophen (Tylenol) 650 mg PO Q4H PRN PRN Reason: Pain Stop: 02/13/17 18:04 Last Admin: 12/18/16 18:34 Dose: 650 mg Al Hydrox/Mg Hydrox/Simethicone (Maalox) 30 ml PO Q4HR PRN PRN Reason: GI DISTRESS Stop: 02/13/17 18:04 Aspirin (Aspirin Chewable) 81 mg PO DAILY ARPITA Stop: 02/14/17 08:59 Last Admin: 12/18/16 08:31 Dose: 81 mg Diphenhydramine HCl (Benadryl) 25 mg PO QID PRN PRN Reason: Agitation Stop: 02/14/17 09:36 Last Admin: 12/18/16 21:48 Dose: 25 mg Diphenhydramine HCl (Benadryl 50 Mg/Ml) 25 mg IVP Q6HR PRN PRN Reason: Agitation if not tolerate po Stop: 02/14/17 11:14 Last Admin: 12/17/16 10:21 Dose: 25 mg Divalproex Sodium (Depakote Dr) 250 mg PO DAILY ARPITA PRN Reason: Protocol Stop: 02/14/17 08:59 Last Admin: 12/18/16 08:31 Dose: 250 mg Divalproex Sodium (Depakote Dr) 500 mg PO HS ARPITA PRN Reason: Protocol Stop: 02/13/17 20:59 Last Admin: 12/18/16 21:48 Dose: 500 mg Docusate Sodium (Colace) 100 mg PO BID ARPITA Stop: 02/13/17 18:04 Last Admin: 12/18/16 16:34 Dose: 100 mg Donepezil HCl (Aricept) 5 mg PO HS ARPITA Stop: 02/13/17 20:59 Last Admin: 12/18/16 21:48 Dose: 5 mg Fluoxetine HCl (Prozac) 10 mg PO DAILY ARPITA PRN Reason: Protocol Stop: 02/14/17 08:59 Last Admin: 12/18/16 08:31 Dose: 10 mg Potassium Chloride/Sodium Chloride (0.9% Ns W/20 Meq Kcl) 1,000 mls @ 75 mls/ hr IV .[id number] ARPITA Stop: 02/13/17 18:04 Last Admin: 12/17/16 00:02 Dose: 75 mls/hr Lorazepam (Ativan) 1 mg PO Q4HR PRN; Protocol PRN Reason: Anxiety Stop: 02/13/17 18:04 Last Admin: 12/18/16 23:38 Dose: 1 mg Memantine (Namenda) 10 mg PO DAILY ARPITA Stop: 02/14/17 08:59 Last Admin: 12/18/16 08:31 Dose: 10 mg Multivitamins/Vitamin C (Theragran) 1 tab PO DAILY ARPITA Stop: 02/14/17 08:59 Last Admin: 12/18/16 08:30 Dose: 1 tab Senna (Senna) 17.2 mg PO HS PRN PRN Reason: Constipation Stop: 02/13/17 18:04 Tamsulosin HCl (Flomax) 0.4 mg PO DAILY ARPITA Stop: 02/14/17 08:59 Last Admin: 12/18/16 08:30 Dose: 0.4 mg General: Alert, Other (confused) HEENT: PERRLA Cardiovascular: Normal S1, Normal S2 (bradycardia) Abdomen: Bowel sounds, Soft Assessment/Plan - Problem List Patient Problems: All Active Problems DEMENTIA (Acute) HTN (Acute) PSYCHOSIS (Acute) - Assessment Assessment: skin lesions on face - Plan Plan: cpm Nutritional Asmnt/Malnutr-PDOC - Dietary Evaluation Malnutrition Findings (Please click <Entered> for more info): Nutritional Asmnt/Malnutrition Start: 12/16/16 11: 42 Text: Status: Complete Freq: Document 12/16/16 11:42 PRESTON (Rec: 12/16/16 11:44 PRESTON GARCIA- FNS1) Nutritional Asmnt/Malnutrition Patient General Information Nutritional Screening Consult Diagnosis Sinus Bradycardia Pertinent Medical Hx/Surgical Hx depression, dementia, hypertension Subjective Information Consult received for "refused to eat and drink". Per H&P, patient is from [facility] has not been able to eat or drink for several days. Per nursing notes, 2+ edema noted on lower left extremities. Patient has 1:1 sitter. Patient asleep at time of visit with lunch tray just arriving. Patient noted to be edentulous and have moderate temporal wasting. Current Diet Order/ Nutrition Support Cardiac Patient / S.O Not Indicated Pertinent Medications maalox, colace, MVI w/C, Potassium Chloride/Sodium Chloride Pertinent Labs Albumin <1.5 Nutritional Hx/Data Height 1.96 m Height (Calculated Centimeters) 195.6 Current Weight (lbs) 78.925 kg Weight (Calculated Kilograms) 78.9 Weight (Calculated Grams) 06478.1 [place] Body Weight 208 % [place] Body Weight 83 Recent Weight Change No Weight Status Approriate GI Symptoms GI Symptoms None Food Allergies No Cultural/Ethnic/Amish Belief None indicated Usual diet at home Unknown Skin Integrity/Comment: Manpreet Boykin Current %PO Poor (25-49%) Estimated Nutritional Goals BEE in Kcals: Using Current wt Calories/Kcals/Kg (30-35 kcal/kg)Using current body weight 79kg Kcals Calculated 5421-3559 kcal/day - 83% IBW Protein: Using Current wt Protein g/k.2-1.5 gm/kg (Using current body weight 79kg)- hypoalbuminemia, edema Protein Calculated 95-115 gm/day Fluid: ml 3141-8036 ml/day (25-30 ml/kg) - 2+ edema noted Nutritional Problem 2. Problem Problem Malnutrition related to Etiology decreased oral intake aeb Signs/Symptoms: moderate temporal wasting, albumin <1.5, poor oral intake . 1. Problem Problem Inadquate oral intake related to Etiology possible confusion and/or decreased appetite aeb Signs/Symptoms: eating <75% of meals and H&P report of poor oral intake prior to admission, Albumin <1 .5 Malnutrition Alert Food and Nutrition Intake (Moderate) <75% est energy req 7days Food and Nutrition Intake (Severe) <50% est energy req 5days Body Fat Depletion (Non-Severe) Mild Depletion Muscle Mass (Non-Severe) Mild Depletion Fluid Accumulation (Severe) Moderate Fluid Retention Protein-Calorie Malnutrition Severe Intervention/Recommendation Comments 1. Consider modifying diet from Cardiac to 2gm sodium due to normal cholesterol labs. 2.Consider adding Boost 3/day with meals to supplement protein/calorie intake. Expected Outcomes/Goals Expected Outcomes/Goals Oral intake of >75% of meals, nutrition related labs normalize, weight stabilizes or trends toward ideal body weight. F/U as HR in 2-3 days (12/18- ) Physician Parameters for PEM Body Mass Index (BMI) 18 - 24 (Mild) Serum Albumin (g/dl) <2.4 (Severe)
--- NOTE | 2016-12-19 11:28 | Infectious Disease Prog Note ---
Infectious Disease Subjective - Review of Systems Service Date: 12/19/16 Subjective: There is no new change, there is no fever, no change in the macular rash. Infectious Disease Objective - Results Result Diagrams: 12/19/16 05:01 12/19/16 05:01 Recent Labs: Laboratory Last Values WBC 10.4 Th/cmm (4.8-10.8) D 12/19/16 05:01 RBC 3.74 Mil/cmm (3.80-5.80) L 12/19/16 05:01 Hgb 11.6 gm/dL (12-16) L 12/19/16 05:01 Hct 34.7 % (41.0-60) L 12/19/16 05:01 MCV 92.9 fl (80-99) 12/19/16 05:01 MCH 31.1 pg (27.0-31.0) H 12/19/16 05:01 MCHC Differential 33.5 pg (28.0-36.0) 12/19/16 05:01 RDW 13.8 % (11.5-20.0) 12/19/16 05:01 Plt Count 138 Th/cmm (150-400) L D 12/19/16 05:01 MPV 8.8 fl 12/19/16 05:01 Neutrophils % 58.2 % (40.0-80.0) 12/19/16 05:01 Lymphocytes % 19.8 % (20.0-50.0) L 12/19/16 05:01 Monocytes % 9.9 % (2.0-10.0) 12/19/16 05:01 Eosinophils % 11.4 % (0.0-5.0) H 12/19/16 05:01 Basophils % 0.7 % (0.0-2.0) 12/19/16 05:01 PT 10.8 SECONDS (9.5-11.5) 12/15/16 13:15 INR 1.04 (0.5-1.4) 12/15/16 13:15 Sodium 147 mEq/L (136-145) H 12/19/16 05:01 Potassium 3.7 mEq/L (3.5-5.1) 12/19/16 05:01 Chloride 111 mEq/L (98-107) H 12/19/16 05:01 Carbon Dioxide 31.7 mEq/L (21.0-31.0) H 12/19/16 05:01 Anion Gap 8.0 (7.0-16.0) 12/19/16 05:01 BUN 20 mg/dL (7-25) 12/19/16 05:01 Creatinine 0.9 mg/dL (0.7-1.3) 12/19/16 05:01 Est GFR ( Amer) TNP 12/19/16 05:01 Est GFR (Non-Af Amer) TNP 12/19/16 05:01 BUN/Creatinine Ratio 22.2 12/19/16 05:01 Glucose 100 mg/dL (70-105) 12/19/16 05:01 Calcium 9.3 mg/dL (8.6-10.3) 12/19/16 05:01 Total Bilirubin 0.6 mg/dL (0.3-1.0) 12/15/16 13:15 AST 18 U/L (13-39) 12/15/16 13:15 ALT 14 U/L (7-52) 12/15/16 13:15 Alkaline Phosphatase 29 U/L (34-104) L 12/15/16 13:15 Troponin I ng/mL (0.01-0.05) 12/15/16 13:15 Total Protein 6.3 gm/dL (6.0-8.3) 12/15/16 13:15 Albumin < 1.5 gm/dL (4.2-5.5) L 12/15/16 13:15 Globulin 4.8 gm/dL 12/15/16 13:15 Albumin/Globulin Ratio 0.3 (1.0-1.8) L 12/15/16 13:15 Triglycerides 99 mg/dL (<150) 12/15/16 13:15 Cholesterol 145 mg/dL (<200) 12/15/16 13:15 LDL Cholesterol Direct 104 mg/dL (75-193) 12/15/16 13:15 HDL Cholesterol 42 mg/dL (23-92) 12/15/16 13:15 Vitamin B12 439 pg/mL (211-946) 12/17/16 04:45 TSH 2.48 uIU/ml (0.34-5.60) 12/15/16 13:15 Urine Source CLEAN C 12/15/16 16:00 Urine Color YELLOW 12/15/16 16:00 Urine Clarity CLEAR (CLEAR) 12/15/16 16:00 Urine pH 7.0 (4.6 - 8.0) 12/15/16 16:00 Ur Specific [place] 1.010 (1.005-1.030) 12/15/16 16:00 Urine Protein NEGATIVE mg/dL (NEGATIVE) 12/15/16 16:00 Urine Glucose (UA) NEGATIVE mg/dL (NEGATIVE) 12/15/16 16:00 Urine Ketones NEGATIVE mg/dL (NEGATIVE) 12/15/16 16:00 Urine Blood TRACE (NEGATIVE) 12/15/16 16:00 Urine Nitrate NEGATIVE (NEGATIVE) 12/15/16 16:00 Urine Bilirubin NEGATIVE (NEGATIVE) 12/15/16 16:00 Urine Urobilinogen 0.2 E.U./dL (0.2 - 1.0) 12/15/16 16:00 Ur Leukocyte Esterase NEGATIVE (NEGATIVE) 12/15/16 16:00 Urine RBC 2-5 /hpf (0-5) H 12/15/16 16:00 Urine WBC 0-2 /hpf (0-5) 12/15/16 16:00 Ur Epithelial Cells OCCASIONAL /lpf (FEW) 12/15/16 16:00 Urine Bacteria FEW /hpf (NONE SEEN) 12/15/16 16:00 Urine Mucus FEW /lpf (FEW) 12/15/16 16:00 Valproic Acid 36.4 ug/mL (50.0-100.0) L 12/17/16 04:45 RPR NONREACTIVE (NONREACTIVE) 12/15/16 13:15 HSV I IgG Ab (Blot) 52.90 index (0.00-0.90) H 12/17/16 04:45 HSV II IgG Ab (Blot) <0.91 index (0.00-0.90) 12/17/16 04:45 HIV 1&2 Antibody Screen NEGATIVE (NEG) 12/17/16 04:45 - Physical Exam Vitals and I&O: Vital Signs Temp 98.2 F 12/19/16 04:00 Pulse 90 12/19/16 04:00 Resp 19 12/19/16 04:00 BP 116/88 12/19/16 04:00 Pulse Ox 98 12/19/16 04:00 Intake & Output 12/18/16 12/19/16 12/19/16 18:59 06:59 18:59 Intake Total 350 Balance 350 Weight (lbs) 79.379 kg Intake: Oral 350 Other: # Voids 3 Active Medications: Current Medications Acetaminophen (Tylenol) 650 mg PO Q4H PRN PRN Reason: Pain Stop: 02/13/17 18:04 Last Admin: 12/18/16 18:34 Dose: 650 mg Al Hydrox/Mg Hydrox/Simethicone (Maalox) 30 ml PO Q4HR PRN PRN Reason: GI DISTRESS Stop: 02/13/17 18:04 Aspirin (Aspirin Chewable) 81 mg PO DAILY ARPITA Stop: 02/14/17 08:59 Last Admin: 12/19/16 08:41 Dose: 81 mg Diphenhydramine HCl (Benadryl) 25 mg PO QID PRN PRN Reason: Agitation Stop: 02/14/17 09:36 Last Admin: 12/18/16 21:48 Dose: 25 mg Diphenhydramine HCl (Benadryl 50 Mg/Ml) 25 mg IVP Q6HR PRN PRN Reason: Agitation if not tolerate po Stop: 02/14/17 11:14 Last Admin: 12/17/16 10:21 Dose: 25 mg Divalproex Sodium (Depakote Dr) 250 mg PO DAILY ARPITA PRN Reason: Protocol Stop: 02/14/17 08:59 Last Admin: 12/19/16 08:41 Dose: 250 mg Divalproex Sodium (Depakote Dr) 500 mg PO HS ARPITA PRN Reason: Protocol Stop: 02/13/17 20:59 Last Admin: 12/18/16 21:48 Dose: 500 mg Docusate Sodium (Colace) 100 mg PO BID ARPITA Stop: 02/13/17 18:04 Last Admin: 12/19/16 08:41 Dose: 100 mg Donepezil HCl (Aricept) 5 mg PO HS ARPITA Stop: 02/13/17 20:59 Last Admin: 12/18/16 21:48 Dose: 5 mg Potassium Chloride/Sodium Chloride (0.9% Ns W/20 Meq Kcl) 1,000 mls @ 75 mls/ hr IV .[id number] ARPITA Stop: 02/13/17 18:04 Last Admin: 12/17/16 00:02 Dose: 75 mls/hr Lorazepam (Ativan) 1 mg PO Q4HR PRN; Protocol PRN Reason: Anxiety Stop: 02/13/17 18:04 Last Admin: 12/19/16 08:41 Dose: 1 mg Memantine (Namenda) 10 mg PO DAILY ARPITA Stop: 02/14/17 08:59 Last Admin: 12/19/16 08:41 Dose: 10 mg Multivitamins/Vitamin C (Theragran) 1 tab PO DAILY ARPITA Stop: 02/14/17 08:59 Last Admin: 12/19/16 08:41 Dose: 1 tab Quetiapine Fumarate (Seroquel) 12.5 mg PO TID ARPITA PRN Reason: Protocol Stop: 02/17/17 13:59 Senna (Senna) 17.2 mg PO HS PRN PRN Reason: Constipation Stop: 02/13/17 18:04 Tamsulosin HCl (Flomax) 0.4 mg PO DAILY ARPITA Stop: 02/14/17 08:59 Last Admin: 12/19/16 08:41 Dose: 0.4 mg General: no acute distress, well developed, well nourished HEENT: atraumatic, normocephalic, moist mucous membrane Neck: supple, no thyromegaly Cardiovascular: S1S2, regular Lungs: clear to auscultation bilaterally, clear to percussion Abdomen: soft, no tender, no distended Extremities: no cyanosis, no clubbing Neurological: awake, alert Skin: intact Infectious Disease Assmt/Plan - Problem List Patient Problems: All Active Problems DEMENTIA (Acute) HTN (Acute) PSYCHOSIS (Acute) - Assessment Assessment: Macular rash. Psychosis - Plan Plan: dc plan Nutritional Asmnt/Malnutr-PDOC - Dietary Evaluation Malnutrition Findings (Please click <Entered> for more info): Nutritional Asmnt/Malnutrition Start: 12/16/16 11: 42 Text: Status: Complete Freq: Document 12/16/16 11:42 [email or web address] (Rec: 12/16/16 11:44 [email or web address] GARCIA- FN) Nutritional Asmnt/Malnutrition Patient General Information Nutritional Screening Consult Diagnosis Sinus Bradycardia Pertinent Medical Hx/Surgical Hx depression, dementia, hypertension Subjective Information Consult received for "refused to eat and drink". Per H&P, patient is from [facility] has not been able to eat or drink for several days. Per nursing notes, 2+ edema noted on lower left extremities. Patient has 1:1 sitter. Patient asleep at time of visit with lunch tray just arriving. Patient noted to be edentulous and have moderate temporal wasting. Current Diet Order/ Nutrition Support Cardiac Patient / S.O Not Indicated Pertinent Medications maalox, colace, MVI w/C, Potassium Chloride/Sodium Chloride Pertinent Labs Albumin <1.5 Nutritional Hx/Data Height 1.96 m Height (Calculated Centimeters) 195.6 Current Weight (lbs) 78.925 kg Weight (Calculated Kilograms) 78.9 Weight (Calculated Grams) 30809.1 [place] Body Weight 208 % [place] Body Weight 83 Recent Weight Change No Weight Status Approriate GI Symptoms GI Symptoms None Food Allergies No Cultural/Ethnic/Confucianism Belief None indicated Usual diet at home Unknown Skin Integrity/Comment: Manpreet Boykin Current %PO Poor (25-49%) Estimated Nutritional Goals BEE in Kcals: Using Current wt Calories/Kcals/Kg (30-35 kcal/kg)Using current body weight 79kg Kcals Calculated 0565-2298 kcal/day - 83% IBW Protein: Using Current wt Protein g/k.2-1.5 gm/kg (Using current body weight 79kg)- hypoalbuminemia, edema Protein Calculated 95-115 gm/day Fluid: ml 5652-9647 ml/day (25-30 ml/kg) - 2+ edema noted Nutritional Problem 2. Problem Problem Malnutrition related to Etiology decreased oral intake aeb Signs/Symptoms: moderate temporal wasting, albumin <1.5, poor oral intake . 1. Problem Problem Inadquate oral intake related to Etiology possible confusion and/or decreased appetite aeb Signs/Symptoms: eating <75% of meals and H&P report of poor oral intake prior to admission, Albumin <1 .5 Malnutrition Alert Food and Nutrition Intake (Moderate) <75% est energy req 7days Food and Nutrition Intake (Severe) <50% est energy req 5days Body Fat Depletion (Non-Severe) Mild Depletion Muscle Mass (Non-Severe) Mild Depletion Fluid Accumulation (Severe) Moderate Fluid Retention Protein-Calorie Malnutrition Severe Intervention/Recommendation Comments 1. Consider modifying diet from Cardiac to 2gm sodium due to normal cholesterol labs. 2.Consider adding Boost 3/day with meals to supplement protein/calorie intake. Expected Outcomes/Goals Expected Outcomes/Goals Oral intake of >75% of meals, nutrition related labs normalize, weight stabilizes or trends toward ideal body weight. F/U as HR in 2-3 days (12/18- ) Physician Parameters for PEM Body Mass Index (BMI) 18 - 24 (Mild) Serum Albumin (g/dl) <2.4 (Severe)
--- NOTE | 2016-12-19 20:36 | Progress Notes ---
DATE: 12/19/2016 SUBJECTIVE: Chart reviewed and the patient interviewed. Also discussed the patient's condition with the staff and reviewed records and labs. The patient continued to be agitated and is still restless. The patient is pulling IVs and he is still unable to follow any of the staff directions. The patient also is still restless and still needs lot of redirections. Otherwise, the patient is compliant with taking his medications with no side effects of medications. Family refused to get the patient into Geropsych unit. They would like to continue his treatment as an outpatient. ASSESSMENT: The patient is still psychotic and he is still agitated and can be dangerous to others. TREATMENT PLAN: We will continue to monitor his behavior and his condition closely. Also I will stop Prozac since the patient seems to be more agitated. We will add Seroquel and we will continue to follow up closely. JOB# [id number]
--- NOTE | 2017-01-01 22:30 | Discharge Summary ---
DATE OF DISCHARGE: 12/19/2016 HOSPITAL COURSE: The patient was admitted on 12/15/2016 to [facility] and discharged on 12/19/2016 to [place]. The patient was admitted for an admitting diagnosis cardiomyopathy, hypertension, anemia, psychosis, skin lesions, and the patient was seen by stone paver Dr. Flowers. The patient improved. The patient is in stable condition on 12/19/2016, and was discharged back to [facility] in a stable condition. I will be following the patient there. MEDICATIONS: See the reconciliation sheet. ACTIVITY: As tolerated. JOB# [id number]
== END 2016-12-19 21:00 | disposition home or self-care (01) | DRG 606 ==
LOC: ER 12:55 → MSI 15:35 → TELE 18:13
PROVIDERS: ADMIT Internal Medicine; ATTEND Internal Medicine
DX: R21 Rash and other nonspecific skin eruption (principal); E41 Nutritional marasmus; R00.1 Bradycardia, unspecified; F03.91 Unspecified dementia, unspecified severity, with behavioral disturbance; D64.9 Anemia, unspecified; F29 Unspecified psychosis not due to a substance or known physiological condition; I10 Essential (primary) hypertension; F25.9 Schizoaffective disorder, unspecified; N40.0 Benign prostatic hyperplasia without lower urinary tract symptoms; D50.9 Iron deficiency anemia, unspecified; F41.9 Anxiety disorder, unspecified; L98.8 Other specified disorders of the skin and subcutaneous tissue; F31.9 Bipolar disorder, unspecified; M62.81 Muscle weakness (generalized); R26.9 Unspecified abnormalities of gait and mobility; Z79.899 Other long term (current) drug therapy; Z68.20 Body mass index [BMI] 20.0-20.9, adult
CPT/HCPCS: 36415-UA; 71010-TC; 80048-TC; 80053-TC; 80061-TC; 80164-TC; 81001-TC; 82607-90; 84443-TC; 84484-TC; 85025-TC; 85610-TC; 86592-TC; 86695-90; 86703-TC; 93005; J1200; J1630; J2060; J3480; Z7610

== ENCOUNTER 2017-02-02 17:43 | Inpatient (IN) | payer MEDICARE, BC, MEDICAID ==
--- NOTE | 2017-02-02 17:57 | ED Physician Chart ---
ED Chief Complaint/HPI - Patient Information Date Seen:: 02/02/17 Time Seen:: 17:56 Chief Complaint:: Bilateral lower extremities edema History of Present Illness:: 81 yo male resident at [facility] who was noted to have elevated PSA and difficulty urinating 3 months ago. The family refused any surgical intervention. Since 2 weeks ago, the patient has been noted to have increasing scrotal edema and bilateral lower extremities edema. The patient did not have cough or shortness of breath. Allergies:: Allergies Allergy/AdvReac Type Severity Reaction Status Date / Time No Known Allergies Allergy Verified 05/08/16 20:36 ED Review of Systems - Review of Systems General/Constitutional: No fever, No chills Skin: Skin lesions Head: No headache Eyes: No loss of vision ENT: No nasal drainage Neck: No neck pain Cardio Vascular: No chest pain, No palpitations, edema Pulmonary: No SOB GI: No nausea, No vomiting G/U: Dysuria Musculoskeletal: No bone or joint pain Psychiatric: Prior psych history ED Past Medical History - Past Medical History Past Medical History: HTN, Dementia, Other (prostate cancer, dermatitis) Social History: Non Smoker, No Alcohol, No Drug Use Psychiatricy History: Dementia, Other (psychosis) Family Medical History - Family Member Mother History Unknown: Yes ED Physical Exam - Physical Examination General/Constitutional: Awake, Alert Head: Atraumatic Eyes: PERRL, EOMI Other Skin comments:: multiple skin lesions on chest ENMT: Lips, teeth, gums nl Neck: Full ROM w/o pain Respiratory: Clear to Auscultation, No Wheeze/Rhonchi/Rales Cardio Vascular: RRR, No murmur, gallop, rubs, NL S1 S2 GI: No tenderness/rebounding/guarding Other comments:: Scrotal edema Other Extremities comments:: 3+ diffuse edema in BLE Other Neuro/Psych comments:: oriented to self only ED Labs/Radiology/EKG Results - Lab Results Results: Renal u/s: bilateral hydronephrosis Bladder u/s: 1.2 L urine retention ED Assessment - Assessment General Assessment: Urinary retention, prostate cancer, bilateral hydronephrosis, Critical Care Time: 45 min Excludes all billable procedures: Yes This condition life threatening/high prob of deterioration: No Assessment/Comments:: CBC, CMP, BNP, CXR, renal and bladder ultrasound Insertion Calvert Admit to [facility] floor Urology consult - Procedures Procedures:: Insertion of Calvert catheter Informed Consent: Procedure/risk/benefits explained by MD: Yes ED Septic Shock - . Is Septic Shock (SBP<90, OR Lactate>4 mmol\L) present?: No ED Reassessment (Disposition) - Reassessment Reassessment Condition:: Improved - Patient Disposition Discharge/Transfer:: Acute Care w/in this hosp Admitting Medical Physician:: Ra Murphy
[2017-02-02 18:31] LABS: % BASOPHILS 1.6 % (0.0-2.0); % EOSINOPHILS 8.4 % (0.0-5.0); % LYMPHOCYTES 43.6 % (20.0-50.0); % MONOCYTES 11.7 % (2.0-10.0); % NEUTROPHILS 34.7 % (40.0-80.0); BASOPHILE ABSOLUTE 0.1 Th/cumm (0-0.2); EOSINOPHILE ABSOLUTE 0.4 Th/cmm (0.1-0.4); HEMATOCRIT 31.9 % (41.0-60); HEMOGLOBIN 10.4 gm/dL (12-16); MEAN CELL VOLUME 92.7 fl (80-99); MEAN CORPUSCULAR HEMOGLOBIN 30.3 pg (27.0-31.0); MEAN CORPUSCULAR HGB CONC 32.6 pg (28.0-36.0); MEAN PLATELET VOLUME 7.2 fl; MONOCYTE ABSOLUTE 0.6 Th/cmm (0.3-1.0); NEUTROPHILE ABSOLUTE 1.7 Th/cmm (1.8-8.0); RED BLOOD COUNT 3.44 Mil/cmm (3.80-5.80); RED CELL DISTRIBUTION WIDTH 14.4 % (11.5-20.0)
[2017-02-02 18:35] LABS: WHITE BLOOD COUNT 4.8 Th/cmm (4.8-10.8)
[2017-02-02 18:36] LABS: PLATELET COUNT 284 Th/cmm (150-400)
[2017-02-02 18:51] LABS: ALB/GLOB RATIO 1.2 (1.0-1.8); ALBUMIN 3.2 gm/dL (4.2-5.5); ALKALINE PHOSPHATASE 39 U/L (34-104); ANION GAP 7.1 (7.0-16.0); BILIRUBIN,TOTAL 0.3 mg/dL (0.3-1.0); BUN - UREA NITROGEN 21 mg/dL (7-25); CALCIUM SERUM 8.9 mg/dL (8.6-10.3); CARBON DIOXIDE 29.5 mEq/L (21.0-31.0); CHLORIDE 106 mEq/L (98-107); GLUCOSE 103 mg/dL; POTASSIUM SERUM 3.6 mEq/L (3.5-5.1); SGOT 20 U/L (13-39); SGPT/ALT 19 U/L (7-52); SODIUM SERUM 139 mEq/L (136-145); TOTAL PROTEIN,SERUM 5.9 gm/dL (6.0-8.3)
[2017-02-02 19:08] LABS: A1C % 5.1 % (4.0-6.0)
[2017-02-02] MEDS ORDERED: Morphine Sulfate 2 mg/mL 1mL Syr ONE (19:08)
[2017-02-02] MEDS ORDERED: Morphine Sulfate 2 mg/mL 1mL Syr IVP STA (19:17)
[2017-02-02 21:14] LABS: URINE MICROSCOPIC INDICATED? YES; URINE SOURCE RANDOM
[2017-02-02 21:17] LABS: URINE BILIRUBIN NEGATIVE (NEGATIVE); URINE BLOOD MODERATE (NEGATIVE); URINE GLUCOSE (UA) NEGATIVE (NEGATIVE); URINE KETONE NEGATIVE (NEGATIVE); URINE LEUKOCYTE ESTERASE NEGATIVE (NEGATIVE); URINE NITRATE NEGATIVE (NEGATIVE); URINE PROTEIN NEGATIVE (NEGATIVE); URINE UROBILINOGEN 0.2 E.U./dL (0.2 - 1.0)
[2017-02-02 21:20] LABS: URINE CLARITY CLEAR (CLEAR); URINE COLOR YELLOW
[2017-02-02 21:22] LABS: URINE BACTERIA NONE SEEN /hpf (NONE SEEN); URINE EPITHELIAL CELLS NONE SEEN /lpf (FEW); URINE RBC NONE SEEN /hpf (0-5); URINE WBC NONE SEEN /hpf (0-5)
[2017-02-02] MEDS ORDERED: D5-0.9%NS 1,000 ML IV SCH (23:31)
[2017-02-02] MEDS ORDERED: Maalox 30 mL Cup PO PRN (23:31)
[2017-02-02] MEDS ORDERED: Morphine Sulfate 2 mg/mL 1mL Syr IVP PRN (23:40)
[2017-02-03] MEDS ORDERED: Levofloxacin 250mg/50mL 250 MG/50 ML BAG IV SCH (04:00)
[2017-02-03 05:59] LABS: % BASOPHILS 0.9 % (0.0-2.0); % EOSINOPHILS 6.3 % (0.0-5.0); % LYMPHOCYTES 35.6 % (20.0-50.0); % MONOCYTES 11.3 % (2.0-10.0); % NEUTROPHILS 45.9 % (40.0-80.0); BASOPHILE ABSOLUTE 0.1 Th/cumm (0-0.2); EOSINOPHILE ABSOLUTE 0.5 Th/cmm (0.1-0.4); HEMATOCRIT 33.3 % (41.0-60); LYMPHOCYTE ABSOLUTE 2.6 Th/cmm (1.5-3.0); MEAN CELL VOLUME 91.4 fl (80-99); MEAN CORPUSCULAR HEMOGLOBIN 30.1 pg (27.0-31.0); MEAN PLATELET VOLUME 7.2 fl; MONOCYTE ABSOLUTE 0.8 Th/cmm (0.3-1.0); NEUTROPHILE ABSOLUTE 3.4 Th/cmm (1.8-8.0); PLATELET COUNT 302 Th/cmm (150-400); RED BLOOD COUNT 3.64 Mil/cmm (3.80-5.80); RED CELL DISTRIBUTION WIDTH 14.3 % (11.5-20.0)
[2017-02-03 06:24] LABS: ANION GAP 6.2 (7.0-16.0); BUN - UREA NITROGEN 17 mg/dL (7-25); CALCIUM SERUM 8.7 mg/dL (8.6-10.3); CHLORIDE 106 mEq/L (98-107); CREATININE - SERUM 0.8 mg/dL (0.7-1.3); GLUCOSE 80 mg/dL; POTASSIUM SERUM 4.2 mEq/L (3.5-5.1); SODIUM SERUM 139 mEq/L (136-145)
[2017-02-03 06:35] LABS: WHITE BLOOD COUNT 7.4 Th/cmm (4.8-10.8)
[2017-02-03] MEDS ORDERED: Multivitamin Tab PO SCH (09:00)
--- NOTE | 2017-02-03 10:01 | Diagnostic Imaging Report ---
CHEST X-RAY: AP view INDICATION: Edema COMPARISON: 12/15/2016 FINDINGS: Right upper lobe density seen adjacent to the right pleural border. No focal consolidation or effusions. Heart size normal. Degenerative changes of the spine are noted. Old proximal left humeral fracture is noted. IMPRESSION: No focal consolidation identified. Right upper lobe density along the pleural border probably due to scarring.
--- NOTE | 2017-02-03 10:16 | Diagnostic Imaging Report ---
Renal ultrasound HISTORY: Bilateral lower extremity edema, prostate cancer. COMPARISON: None Technique: Sonography of the kidneys and urinary bladder was performed in multiple planes. FINDINGS: The right kidney measures 11.6 x 5 cm. The left kidney measures 11.1 x 5.7 cm. Moderate bilateral hydronephrosis is noted. The renal margins are not well-defined, however, no evidence of obvious focal lesions. Markedly elevated urinary bladder 1223-mL cyst is noted. The urinary bladder wall is borderline prominent. The patient was unable to void during exam. The prostate gland measures 5.4 x 5.5 x 5.5 cm and demonstrates a heterogeneous echotexture. IMPRESSION: Moderate bilateral hydronephrosis. This may be due to a severely distended urinary bladder. Note, patient was unable to void during the exam. If indicated BARBER catheter placement may be performed. Borderline generalized prominence of the urinary bladder wall which may be due to underlying infectious inflammatory process. Mildly prominent heterogeneous prostate gland, please correlate with clinical findings.
--- NOTE | 2017-02-03 13:08 | History & Physical ---
ADMIT DATE: 02/03/2017 HISTORY OF PRESENT ILLNESS: This is a 81-year-old male admitted through the Emergency Room from a [facility] facility due to bilateral lower extremity edema. REVIEW OF SYSTEMS: GENERAL: Denies any fever, denies any chills. HEENT: Denies any headache. Denies dizziness. EYES: Denies any blurring of vision. Denies any eye pain. NECK: Denies any neck pain, denies any nuchal rigidity. CHEST: Denies any chest pain, denies any palpitation. PULMONARY: Denies any coughing. Denies any shortness of breath. GASTROINTESTINAL: Denies abdominal pain, denies constipation. Denies diarrhea. GENITOURINARY: Positive dysuria. MUSCULOSKELETAL: Denies any joint pain or muscle pain. SOCIAL HISTORY: The patient lives in a [facility] facility prior to hospitalization. FAMILY HISTORY: Unremarkable. PAST SURGICAL HISTORY: Unremarkable. PAST MEDICAL HISTORY: Includes hypertension, dementia, prostate cancer. PHYSICAL EXAMINATION: VITAL SIGNS: Temperature 97.7, heart rate of 60, blood pressure 151/60, respiration of 18, 99% on room air. HEENT: Head is atraumatic, normocephalic. Eyes: Bilateral conjunctivae are clear. Bilateral pupils are equally round and reactive. NECK: Supple. No JVD. CARDIOVASCULAR: S1 and S2, without murmur. LUNGS: Clear to auscultation. GASTROINTESTINAL: Soft and nontender without guarding. Positive bowel sounds. GENITOURINARY: Positive hematuria. The patient has indwelling Calvert catheter. MUSCULOSKELETAL: No clubbing, no cyanosis noted. ASSESSMENT: 1. Hydronephrosis. 2. Urinary retention. 3. Prostate cancer. 4. Dementia. 5. Hypertension. PLAN: We will consult with an Infectious Disease doctor. Also, we will get a consult with the psychiatrist. Also we will get warehouse freight handler on board. We will keep indwelling Calvert catheter and monitor the patient's urine output. We will also monitor patient's PSA and will check chemistry and H and H of the patient. Treatment plans were discussed with the patient's nurse. Treatment plans were discussed with Dr. Murphy. JOB# [id number]
--- NOTE | 2017-02-03 13:08 | History & Physical ---
ADMIT DATE: 02/03/2017 HISTORY OF PRESENT ILLNESS: This is a 81-year-old male admitted through the Emergency Room from a residential facility due to bilateral lower extremity edema. REVIEW OF SYSTEMS: GENERAL: Denies any fever, denies any chills. HEENT: Denies any headache. Denies dizziness. EYES: Denies any blurring of vision. Denies any eye pain. NECK: Denies any neck pain, denies any nuchal rigidity. CHEST: Denies any chest pain, denies any palpitation. PULMONARY: Denies any coughing. Denies any shortness of breath. GASTROINTESTINAL: Denies abdominal pain, denies constipation. Denies diarrhea. GENITOURINARY: Positive dysuria. MUSCULOSKELETAL: Denies any joint pain or muscle pain. SOCIAL HISTORY: The patient lives in a residential facility prior to hospitalization. FAMILY HISTORY: Unremarkable. PAST SURGICAL HISTORY: Unremarkable. PAST MEDICAL HISTORY: Includes hypertension, dementia, prostate cancer. PHYSICAL EXAMINATION: VITAL SIGNS: Temperature 97.7, heart rate of 60, blood pressure 151/60, respiration of 18, 99% on room air. HEENT: Head is atraumatic, normocephalic. Eyes: Bilateral conjunctivae are clear. Bilateral pupils are equally round and reactive. NECK: Supple. No JVD. CARDIOVASCULAR: S1 and S2, without murmur. LUNGS: Clear to auscultation. GASTROINTESTINAL: Soft and nontender without guarding. Positive bowel sounds. GENITOURINARY: Positive hematuria. The patient has indwelling Calvert catheter. MUSCULOSKELETAL: No clubbing, no cyanosis noted. ASSESSMENT: 1. Hydronephrosis. 2. Urinary retention. 3. Prostate cancer. 4. Dementia. 5. Hypertension. PLAN: We will consult with an Infectious Disease doctor. Also, we will get a consult with the psychiatrist. Also we will get top lift and automatic window repairer on board. We will keep indwelling Calvert catheter and monitor the patient's urine output. We will also monitor patient's PSA and will check chemistry and H and H of the patient. Treatment plans were discussed with the patient's nurse. Treatment plans were discussed with Dr. Murphy. JOB# [id number]
--- NOTE | 2017-02-03 13:08 | History & Physical ---
ADMIT DATE: 02/03/2017 HISTORY OF PRESENT ILLNESS: This is a 81-year-old male admitted through the Emergency Room from a [facility] facility due to bilateral lower extremity edema. REVIEW OF SYSTEMS: GENERAL: Denies any fever, denies any chills. HEENT: Denies any headache. Denies dizziness. EYES: Denies any blurring of vision. Denies any eye pain. NECK: Denies any neck pain, denies any nuchal rigidity. CHEST: Denies any chest pain, denies any palpitation. PULMONARY: Denies any coughing. Denies any shortness of breath. GASTROINTESTINAL: Denies abdominal pain, denies constipation. Denies diarrhea. GENITOURINARY: Positive dysuria. MUSCULOSKELETAL: Denies any joint pain or muscle pain. SOCIAL HISTORY: The patient lives in a [facility] facility prior to hospitalization. FAMILY HISTORY: Unremarkable. PAST SURGICAL HISTORY: Unremarkable. PAST MEDICAL HISTORY: Includes hypertension, dementia, prostate cancer. PHYSICAL EXAMINATION: VITAL SIGNS: Temperature 97.7, heart rate of 60, blood pressure 151/60, respiration of 18, 99% on room air. HEENT: Head is atraumatic, normocephalic. Eyes: Bilateral conjunctivae are clear. Bilateral pupils are equally round and reactive. NECK: Supple. No JVD. CARDIOVASCULAR: S1 and S2, without murmur. LUNGS: Clear to auscultation. GASTROINTESTINAL: Soft and nontender without guarding. Positive bowel sounds. GENITOURINARY: Positive hematuria. The patient has indwelling Calvert catheter. MUSCULOSKELETAL: No clubbing, no cyanosis noted. ASSESSMENT: 1. Hydronephrosis. 2. Urinary retention. 3. Prostate cancer. 4. Dementia. 5. Hypertension. PLAN: We will consult with an Infectious Disease doctor. Also, we will get a consult with the psychiatrist. Also we will get ship's pilot on board. We will keep indwelling Calvert catheter and monitor the patient's urine output. We will also monitor patient's PSA and will check chemistry and H and H of the patient. Treatment plans were discussed with the patient's nurse. Treatment plans were discussed with Dr. Murphy. JOB# [id number]
[2017-02-04] MEDS ORDERED: Vitamin D3 2,000 IU SGL PO SCH (09:00)
--- NOTE | 2017-02-04 16:53 | Consultation ---
DATE OF CONSULTATION: 02/03/2017 ELECTROENCEPHALOGRAPHIC TECHNICIAN: Rubén Siddiqui MD REASON FOR CONSULTATION: Electrolyte imbalance and fluid management. HISTORY OF PRESENT ILLNESS: This is a 81-year-old male with past medical history of prostate CA who was brought in because of bilateral lower extremity and scrotal edema. Two weeks prior to admission, the patient was noted to have increasing bilateral lower extremity and scrotal edema. His urine output had suddenly been decreasing. He was scheduled to see a urologist. A few hours prior to admission, his bipedal and scrotal edema has worsened. He was then sent to the Emergency Room. Renal ultrasound revealed moderate bilateral hydronephrosis. A Calvert catheter was inserted and approximately 1500 mL of urine was obtained. His BUN/creatinine remained stable at 17/0.8. He has no history of nausea and vomiting as well as diarrhea. PAST MEDICAL HISTORY: 1. Prostate CA. 2. Essential hypertension. 3. Alzheimer dementia. 4. Essential hypertension. CURRENT MEDICATIONS: He is currently on acetaminophen, ascorbic acid, clonidine, diphenhydramine, divalproex, docusate sodium, donepezil, levofloxacin, memantine, multivitamins, quetiapine, and senna. ALLERGIES: No known drug allergies. SOCIAL AND FAMILY HISTORY: I was not able to obtain directly from the patient because he remains nonverbal, but awake. REVIEW OF SYSTEMS: Again, I was not able to decipher directly from the patient. PHYSICAL EXAMINATION: GENERAL: The patient is awake and remains nonverbal, but very comfortable. VITAL SIGNS: Blood pressure is 141/60, pulse 60, and temperature 97.2 degrees. SKIN: Good turgor, warm. No rash and no jaundice appreciated. HEENT: Head: Normocephalic and atraumatic. Eyes: Extraocular muscles intact. Pupils equal, round, reactive to light and accommodates, anicteric sclerae, and pink conjunctivae. Nose: Midline nasal septum. Mouth: Moist mucosa with poor dentition. NECK: Supple. No adenopathy, no thyromegaly, and no bruits. Trachea palpated in the midline. CHEST AND CVS: S1 and S2. No rub, murmur, nor gallop appreciated. Point of maximal impulse, fifth intercostal space left midclavicular line. No abdominal or femoral bruits appreciated. LUNGS: Equal expansion. No use of accessory muscles. No supraclavicular retractions. Decreased breath sounds, clear to auscultation without any wheeze. ABDOMEN: Flat and soft. Positive for bowel sounds. No bruits either diastolic or systolic. RECTAL: Lax sphincter tone. GENITOURINARY: Moderate scrotal edema. MUSCULOSKELETAL: No effusions present in his joints, but unable to assess his range of motion. EXTREMITIES: I would say he has mild bipedal edema, but no cyanosis nor clubbing. Palpable femoral, but unable to fully appreciate popliteal and dorsalis pedis pulses. NEUROLOGIC: The patient is awake, but due to depressed mental status, he was not able to follow my neuro commands and I was not able to pursue further my neuro exam. LABORATORY DATA: Revealed white count 7.4, hemoglobin 11, hematocrit 33, platelets 302, and polys 45.9%. Sodium 139, potassium 4.2, chloride 106, bicarb 21, BUN 17, creatinine 0.8, and calcium 8.7. Albumin 3.2. IMPRESSION: 1. Bipedal/scrotal edema secondary to urinary retention. 2. Urinary retention secondary to prostate cancer. 3. Bilateral hydronephrosis secondary to urinary retention. 4. Prostate cancer. 5. Essential hypertension. 6. Alzheimer dementia. 7. Moderate malnutrition. PLAN: 1. Flush Calvert catheter at an hour or two until the urine clears. 2. The patient can be discharged back to extended care facility once urine has cleared with flushing. 3. Follow up outpatient urology. 4. Continue IV fluids for now for post obstructive diaphoresis. 5. Discontinue Lasix to prevent dehydration. Thank you Dr. Murphy for this consult. I will follow the patient closely with you. JOB# [id number]
--- NOTE | 2017-02-05 04:28 | Psychosocial Evaluation ---
DATE OF SERVICE: 02/03/2017 The patient was seen and evaluated. The patient's chart reviewed. This is initial psychiatric consultation here at the Med/Surg in [facility]. REASON FOR CONSULTATION: Aggression. CHIEF COMPLAINT: Selectively mute. Overnight nursing staff reported that the patient has been irritable, ____, aggressive and pinching nursing staff. HISTORY OF PRESENT ILLNESS: The patient is a 81-year-old male with a previous history of schizoaffective and also neurocognitive impairment, who was brought in here for increase aggressive behavior, which he was noted to have hydronephrosis and pending transfer to [place] for urologist evaluation. In the meantime, the patient has an extensive history of multiple psychiatric hospitalizations and also psychotic and aggressive behavior. Today on [id number] evaluation, the patient presents easily irritable, minimally interactive, does not engage much in the interview and avoidant and disengaged. PAST MEDICAL HISTORY: Includes hypertension, BPH, malignant neoplasm of the prostate, abnormal posture and dermatitis. Also, recently diagnosed with hydronephrosis. PAST PSYCHIATRIC HISTORY: History of dementia and also history of schizoaffective disorder, bipolar type. ALLERGIES TO MEDICATIONS: NKDA. HOME MEDICATIONS: Include: 1. Ativan as needed. 2. Benadryl 25 mg. 3. Depakote 500 mg p.o. b.i.d. 4. Ferrous sulfate. 5. Flomax. 6. Maalox. 7. Multivitamins. 8. Namenda 10 mg a day. 9. Senna. 10. Seroquel 25 mg p.o. in the morning and 50 mg at nighttime. MENTAL STATUS EXAMINATION: Easily irritable, easily agitated, disengaged at times, does not want to participate in interview, disorganized, psychotic, poor insight, judgment and impulse control. PRIMARY DIAGNOSIS: Schizoaffective, bipolar type as history. SECONDARY DIAGNOSIS: Delirium. SECONDARY MEDICAL DIAGNOSIS: As noted above. ASSESSMENT AND PLAN: The patient is a 81-year-old male admitted here for hydronephrosis, pending transfer. Not only there is an underlying history of neurocognitive impairment and is being treated with multiple neurocognitive enhancers, but also with a history of schizoaffective bipolar type, resulting in psychotic behaviors. It is not uncommon where baseline is decompensated secondary to delirium, which is consistent with hydronephrosis at this point. We will continue monitoring and evaluating. We will continue with the current psychotropic medications in the meantime and I agree with the transfer to continue pursuing further specialized treatment in regards to this kidney component. PLAN: 1. No criteria if you do not fit in. 2. Continue treating the underlying comorbid medical illness that exacerbates the patient's delirium. 3. Continue with the primary psychotropic medications, which include as noted above. 4. Plan was discussed in great detail with the nursing staff. 5. We will continue monitoring and evaluating and follow alongside primary medical team. Thank you for the consultation. JOB# [id number]
--- NOTE | 2017-02-05 04:28 | Psychosocial Evaluation ---
DATE OF SERVICE: 02/03/2017 The patient was seen and evaluated. The patient's chart reviewed. This is initial psychiatric consultation here at the Med/Surg in [facility]. REASON FOR CONSULTATION: Aggression. CHIEF COMPLAINT: Selectively mute. Overnight nursing staff reported that the patient has been irritable, ____, aggressive and pinching nursing staff. HISTORY OF PRESENT ILLNESS: The patient is a 81-year-old male with a previous history of schizoaffective and also neurocognitive impairment, who was brought in here for increase aggressive behavior, which he was noted to have hydronephrosis and pending transfer to [place] for urologist evaluation. In the meantime, the patient has an extensive history of multiple psychiatric hospitalizations and also psychotic and aggressive behavior. Today on [id number] evaluation, the patient presents easily irritable, minimally interactive, does not engage much in the interview and avoidant and disengaged. PAST MEDICAL HISTORY: Includes hypertension, BPH, malignant neoplasm of the prostate, abnormal posture and dermatitis. Also, recently diagnosed with hydronephrosis. PAST PSYCHIATRIC HISTORY: History of dementia and also history of schizoaffective disorder, bipolar type. ALLERGIES TO MEDICATIONS: NKDA. HOME MEDICATIONS: Include: 1. Ativan as needed. 2. Benadryl 25 mg. 3. Depakote 500 mg p.o. b.i.d. 4. Ferrous sulfate. 5. Flomax. 6. Maalox. 7. Multivitamins. 8. Namenda 10 mg a day. 9. Senna. 10. Seroquel 25 mg p.o. in the morning and 50 mg at nighttime. MENTAL STATUS EXAMINATION: Easily irritable, easily agitated, disengaged at times, does not want to participate in interview, disorganized, psychotic, poor insight, judgment and impulse control. PRIMARY DIAGNOSIS: Schizoaffective, bipolar type as history. SECONDARY DIAGNOSIS: Delirium. SECONDARY MEDICAL DIAGNOSIS: As noted above. ASSESSMENT AND PLAN: The patient is a 81-year-old male admitted here for hydronephrosis, pending transfer. Not only there is an underlying history of neurocognitive impairment and is being treated with multiple neurocognitive enhancers, but also with a history of schizoaffective bipolar type, resulting in psychotic behaviors. It is not uncommon where baseline is decompensated secondary to delirium, which is consistent with hydronephrosis at this point. We will continue monitoring and evaluating. We will continue with the current psychotropic medications in the meantime and I agree with the transfer to continue pursuing further specialized treatment in regards to this kidney component. PLAN: 1. No criteria if you do not fit in. 2. Continue treating the underlying comorbid medical illness that exacerbates the patient's delirium. 3. Continue with the primary psychotropic medications, which include as noted above. 4. Plan was discussed in great detail with the nursing staff. 5. We will continue monitoring and evaluating and follow alongside primary medical team. Thank you for the consultation. JOB# [id number]
== END 2017-02-03 19:35 | disposition short-term general hospital (02) | DRG 723 ==
LOC: ER 17:43 → MSI 20:35
PROVIDERS: ADMIT Internal Medicine; ATTEND Internal Medicine
DX: C61 Malignant neoplasm of prostate (principal); N13.30 Unspecified hydronephrosis; E44.0 Moderate protein-calorie malnutrition; F25.0 Schizoaffective disorder, bipolar type; Z68.21 Body mass index [BMI] 21.0-21.9, adult; G30.9 Alzheimer's disease, unspecified; F02.80 Dementia in other diseases classified elsewhere, unspecified severity, without behavioral disturbance, psychotic disturbance, mood disturbance, and anxiety; I10 Essential (primary) hypertension; N40.1 Benign prostatic hyperplasia with lower urinary tract symptoms; R33.8 Other retention of urine
CPT/HCPCS: 36415-UA; 71010-TC; 76770-TC; 80048-TC; 80053-TC; 81001-TC; 83036-90; 83880-TC; 84153-90; 84443-TC; 85025-TC; 93005; 96374; J1200; J1940; J1956; J2060; J2270; J7042; Z7502; Z7610

== ENCOUNTER 2017-02-22 08:53 | Inpatient (IN) | payer MEDICARE, BC, MEDICAID ==
[2017-02-22] MEDS ORDERED: Maalox 30 mL Cup PO PRN (09:52)
[2017-02-22] MEDS ORDERED: Magnesium Hydroxide (MOM) 30 mL UDC PO PRN (09:52)
[2017-02-22 09:56] VITALS: BP 136/74
[2017-02-23] MEDS ORDERED: Vitamin D3 2,000 IU SGL PO SCH (09:00)
[2017-02-23] MEDS ORDERED: Non-Formulary Item 1 EA (Ascorbic Acid [Vitamin C] 500 MG) PO SCH (09:00)
[2017-02-23] MEDS ORDERED: Aspirin 81mg Chewable Tab PO SCH (09:00)
[2017-02-23] MEDS ORDERED: Multivitamin Tab PO SCH (09:00)
== END 2017-02-22 15:40 | DRG 885 ==
LOC: GERO 08:53
PROVIDERS: ADMIT Psychiatry & Neurology Psychiatry; ATTEND Psychiatry & Neurology Psychiatry
DX: F29 Unspecified psychosis not due to a substance or known physiological condition (principal); F03.90 Unspecified dementia, unspecified severity, without behavioral disturbance, psychotic disturbance, mood disturbance, and anxiety; R31.9 Hematuria, unspecified; F41.9 Anxiety disorder, unspecified; I10 Essential (primary) hypertension
CPT/HCPCS: 82948-90

== ENCOUNTER 2017-03-07 20:52 | Inpatient (IN) | payer MEDICARE, BC, MEDICAID ==
[2017-03-07 21:20] VITALS: BP 132/78
[2017-03-07] MEDS ORDERED: Maalox 30 mL Cup PO PRN (21:20)
[2017-03-07] MEDS ORDERED: Magnesium Hydroxide (MOM) 30 mL UDC PO PRN (22:05)
[2017-03-08] MEDS ORDERED: ACIDOPH PARACASEI B LACTIS PO SCH (09:00)
--- NOTE | 2017-03-08 20:11 | Psychosocial Evaluation ---
DATE OF SERVICE: 03/08/2017 AGE: 81. SEX: Male. PHYSICIAN: Grayson Dorsey M.D., M.P.H. CHIEF COMPLAINT: Confusion and agitation. HISTORY OF PRESENT ILLNESS: The patient is a 81-year-old male who was transferred from [facility] because of increased confusion and agitation. The patient has been also resisting care. The patient has not been able to answer any of my questions coherently and has been confused. Also, has been easily agitated. The patient also has been restless and has been fighting with staff and unable to follow any of directions easily. The patient also has been paranoid. PAST PSYCHIATRIC HISTORY: The patient has history of dementia and also history of psychosis. PAST MEDICAL HISTORY: The patient was cleared medically in [facility]. SOCIAL HISTORY: The patient lives in a halfway. No known alcohol or drug use. ALLERGIES: No known allergies. MENTAL STATUS EXAMINATION: The patient appears his stated age. Disheveled. Restless. Irritable moods. Thought processes are disorganized. The patient did not answer questions regarding hallucinations or delusions or regarding suicide or homicide. The patient is alert, but he seems to be disoriented to time, place, person, and situation. Impaired immediate, recent and remote memories. Poor insight and poor judgment. ASSESSMENT: PRIMARY DIAGNOSIS: Unspecified psychosis. SECONDARY DIAGNOSIS: Dementia, moderate to severe, with psychotic features. TREATMENT PLAN: Monitor patient's behavior and condition closely. Also, adjust psychotropic medications and work on behavior modification. ESTIMATED LENGTH OF STAY: 7-10 days. THE PATIENT'S STRENGTHS AND WEAKNESSES. The patient's strength is not clear at this time. Weaknesses is poor impulse control. AFTER DISCHARGE PLAN: Outpatient treatment and followup will continue as an outpatient. JOB# [id number]
--- NOTE | 2017-03-09 01:26 | History & Physical ---
ADMIT DATE: 03/07/2017 HISTORY OF PRESENT ILLNESS: The patient is a 81-year-old male with long history of dementia, benign prostatic hypertrophy, underwent transurethral prostatic resection surgery by Dr. Eliezer Valenzuela, urologist. The patient started having bleeding postoperatively and admitted to [facility] for more evaluation and treatment. The patient was stabilized clinically and transferred back to [facility] at [facility]. The patient still has mild hematuria. Otherwise, no fever, no chills, no nausea, no vomiting. PAST MEDICAL HISTORY: Significant for hypertension, dementia, degenerative joint disease, benign prostatic hypertrophy. PAST SURGICAL HISTORY: Transurethral prostatic resection. ALLERGIES: None. MEDICATIONS: Follow admission reconciliation. SOCIAL HISTORY: No smoking, alcohol, or drug. FAMILY HISTORY: Noncontributory. REVIEW OF SYSTEMS: IMMUNO SYSTEM: No history of chronic ____ disorder. CARDIOVASCULAR SYSTEM: No coronary artery disease. ENDOCRINE SYSTEM: No diabetes or thyroid problem. GASTROINTESTINAL SYSTEM: No upper or lower gastrointestinal bleed. NEUROLOGICAL SYSTEM: He has dementia. MUSCULOSKELETAL SYSTEM: He has degenerative joint disease. GENITOURINARY: He has benign prostatic hypertrophy status post transurethral prostate resection. PHYSICAL EXAMINATION: GENERAL: He is awake, not coherent. VITAL SIGNS: Temperature 97.6, heart rate 100, blood pressure 117/56. HEENT: Normocephalic. Pupils are reacting and equal to light and accommodation. Sclerae clear. NECK: Supple. Negative for lymphadenopathy, JVD, or bruit. CHEST: Bilaterally normal. No rhonchi or wheezing. HEART: S1, S2 normal. No murmur or gallop rhythm. ABDOMEN: Soft, bowel sounds positive. EXTREMITIES: No edema. NEUROLOGIC: Awake, not coherent, moving upper and lower extremities. ASSESSMENT: 1. Benign prostatic hypertrophy status post transurethral prostate resection. 2. Hematuria. 3. Anemia. 4. Degenerative joint disease. 5. Dementia. PLAN: The patient in the hospital, admitted to [facility] Department under Dr. Durant service. MEDICAL PROBLEMS ADDRESSED DURING THIS HOSPITALIZATION: Dementia and hematuria. MEDICAL PROBLEMS ADDRESSED AT DISCHARGE: The patient is clinically stable for activity. Thank you, Dr. Durant, for asking to see your patient. [facility]# [id number]
[2017-03-09 07:13] LABS: % BASOPHILS 0.3 % (0.0-2.0); % EOSINOPHILS 2.6 % (0.0-5.0); % LYMPHOCYTES 24.4 % (20.0-50.0); % MONOCYTES 14.9 % (2.0-10.0); % NEUTROPHILS 57.8 % (40.0-80.0); EOSINOPHILE ABSOLUTE 0.2 Th/cmm (0.1-0.4); HEMATOCRIT 32.5 % (41.0-60); HEMOGLOBIN 11.1 gm/dL (12-16); LYMPHOCYTE ABSOLUTE 2.3 Th/cmm (1.5-3.0); MEAN CELL VOLUME 90.4 fl (80-99); MEAN CORPUSCULAR HEMOGLOBIN 30.9 pg (27.0-31.0); MEAN CORPUSCULAR HGB CONC 34.2 pg (28.0-36.0); MEAN PLATELET VOLUME 7.5 fl; MONOCYTE ABSOLUTE 1.4 Th/cmm (0.3-1.0); NEUTROPHILE ABSOLUTE 5.4 Th/cmm (1.8-8.0); PLATELET COUNT 463 Th/cmm (150-400); RED CELL DISTRIBUTION WIDTH 14.5 % (11.5-20.0); WHITE BLOOD COUNT 9.3 Th/cmm (4.8-10.8)
[2017-03-09 07:26] LABS: ALB/GLOB RATIO 1.2 (1.0-1.8); ALBUMIN 3.6 gm/dL (4.2-5.5); ALKALINE PHOSPHATASE 45 U/L (34-104); ANION GAP 12.3 (7.0-16.0); BILIRUBIN,TOTAL 0.3 mg/dL (0.3-1.0); BUN - UREA NITROGEN 39 mg/dL (7-25); CALCIUM SERUM 9.9 mg/dL (8.6-10.3); CARBON DIOXIDE 24.9 mEq/L (21.0-31.0); CHLORIDE 110 mEq/L (98-107); CREATININE - SERUM 1.2 mg/dL (0.7-1.3); GLUCOSE 115 mg/dL (70-105); POTASSIUM SERUM 4.2 mEq/L (3.5-5.1); SGOT 19 U/L (13-39); SGPT/ALT 17 U/L (7-52); SODIUM SERUM 143 mEq/L (136-145); TOTAL PROTEIN,SERUM 6.6 gm/dL (6.0-8.3)
--- NOTE | 2017-03-09 14:49 | Internal Medicine Prog Note ---
Internal Medicine Subjective - Subjective Service Date: 03/09/17 Patient seen and examined:: with staff (he is eating well,less hematurea.) Patient is:: awake, in wheelchair, confused Per staff patient has:: no adverse event Internal Medicine Objective - Results Result Diagrams: 03/09/17 06:55 03/09/17 06:55 Recent Labs: Laboratory Last Values WBC 9.3 Th/cmm (4.8-10.8) 03/09/17 06:55 RBC 3.60 Mil/cmm (3.80-5.80) L 03/09/17 06:55 Hgb 11.1 gm/dL (12-16) L 03/09/17 06:55 Hct 32.5 % (41.0-60) L 03/09/17 06:55 MCV 90.4 fl (80-99) 03/09/17 06:55 MCH 30.9 pg (27.0-31.0) 03/09/17 06:55 MCHC Differential 34.2 pg (28.0-36.0) 03/09/17 06:55 RDW 14.5 % (11.5-20.0) 03/09/17 06:55 Plt Count 463 Th/cmm (150-400) H 03/09/17 06:55 MPV 7.5 fl 03/09/17 06:55 Neutrophils % 57.8 % (40.0-80.0) 03/09/17 06:55 Lymphocytes % 24.4 % (20.0-50.0) 03/09/17 06:55 Monocytes % 14.9 % (2.0-10.0) H 03/09/17 06:55 Eosinophils % 2.6 % (0.0-5.0) 03/09/17 06:55 Basophils % 0.3 % (0.0-2.0) 03/09/17 06:55 Sodium 143 mEq/L (136-145) 03/09/17 06:55 Potassium 4.2 mEq/L (3.5-5.1) 03/09/17 06:55 Chloride 110 mEq/L (98-107) H 03/09/17 06:55 Carbon Dioxide 24.9 mEq/L (21.0-31.0) 03/09/17 06:55 Anion Gap 12.3 (7.0-16.0) 03/09/17 06:55 BUN 39 mg/dL (7-25) H 03/09/17 06:55 Creatinine 1.2 mg/dL (0.7-1.3) 03/09/17 06:55 Est GFR ( Amer) TNP 03/09/17 06:55 Est GFR (Non-Af Amer) TNP 03/09/17 06:55 BUN/Creatinine Ratio 32.5 03/09/17 06:55 Glucose 115 mg/dL (70-105) H 03/09/17 06:55 Calcium 9.9 mg/dL (8.6-10.3) 03/09/17 06:55 Total Bilirubin 0.3 mg/dL (0.3-1.0) 03/09/17 06:55 AST 19 U/L (13-39) 03/09/17 06:55 ALT 17 U/L (7-52) 03/09/17 06:55 Alkaline Phosphatase 45 U/L (34-104) 03/09/17 06:55 Total Protein 6.6 gm/dL (6.0-8.3) 03/09/17 06:55 Albumin 3.6 gm/dL (4.2-5.5) L 03/09/17 06:55 Globulin 3.0 gm/dL 03/09/17 06:55 Albumin/Globulin Ratio 1.2 (1.0-1.8) 03/09/17 06:55 - Physical Exam Vitals and I&O: Vital Signs Temp 98.2 F 03/09/17 06:49 Pulse 79 03/09/17 10:18 Resp 18 03/09/17 10:18 BP 119/69 03/09/17 06:49 Pulse Ox 95 03/09/17 10:18 Intake & Output 03/08/17 03/09/17 03/09/17 18:59 06:59 18:59 Intake Total 1120 120 Balance 1120 120 Intake: Oral 1120 120 Other: # Voids 3 3 # Bowel Movements 1 Active Medications: Current Medications Acetaminophen (Tylenol) 650 mg PO Q4H PRN PRN Reason: Mild Pain/Headache/T above 101 Stop: 05/06/17 21:19 Acetaminophen (Tylenol) 650 mg PO Q4H PRN PRN Reason: pain Stop: 05/06/17 22:14 Acetaminophen/Hydrocodone Bitart ([place] 5mg/325mg) 1 tab PO Q6H PRN PRN Reason: Moderate Pain Stop: 05/06/17 21:19 Al Hydrox/Mg Hydrox/Simethicone (Maalox) 30 ml PO Q6H PRN PRN Reason: Dyspepsia Stop: 05/06/17 21:19 Ascorbic Acid (Vitamin C) 500 mg PO DAILY ARPITA Stop: 05/07/17 08:59 Last Admin: 03/09/17 08:50 Dose: 500 mg Aspirin (Ecotrin) 81 mg PO DAILY ARPITA Stop: 05/07/17 08:59 Last Admin: 03/09/17 08:50 Dose: 81 mg Docusate Sodium (Colace) 100 mg PO DAILY ARPITA Stop: 05/07/17 08:59 Last Admin: 03/09/17 08:50 Dose: 100 mg Donepezil HCl (Aricept) 5 mg PO HS ARPITA Stop: 05/07/17 20:59 Last Admin: 03/08/17 20:59 Dose: 5 mg Hydrocortisone (Hydrocortisone 2.5%) 1 appl TP BID ARPITA Stop: 05/07/17 08:59 Last Admin: 03/09/17 08:49 Dose: 1 appl Hydroxyzine HCl (Atarax) 10 mg PO Q8H PRN; Protocol PRN Reason: Itching Stop: 05/06/17 22:14 Lorazepam (Ativan) 1 mg PO Q6H PRN; Protocol PRN Reason: Anxiety/Agitation Stop: 05/06/17 21:19 Magnesium Hydroxide (Milk Of Magnesia) 30 ml PO HS PRN PRN Reason: Constipation Stop: 05/06/17 22:04 Memantine (Namenda) 10 mg PO DAILY ARPITA Stop: 05/07/17 08:59 Last Admin: 03/09/17 08:49 Dose: 10 mg Quetiapine Fumarate (Seroquel) 12.5 mg PO BID ARPITA PRN Reason: Protocol Stop: 05/07/17 08:59 Last Admin: 03/09/17 08:49 Dose: 12.5 mg Quetiapine Fumarate (Seroquel) 50 mg PO HS ARPITA PRN Reason: Protocol Stop: 05/07/17 20:59 Last Admin: 03/08/17 20:59 Dose: 50 mg Senna (Senna) 17.2 mg PO HS ARPITA Stop: 05/07/17 20:59 Last Admin: 03/08/17 20:59 Dose: 17.2 mg Senna (Senna) 17.2 mg PO DAILY ARPITA Stop: 05/07/17 08:59 Last Admin: 03/09/17 08:52 Dose: 17.2 mg Valproate Sodium (Depakene) 250 mg PO BID ARPITA Stop: 05/07/17 08:59 Last Admin: 03/09/17 08:49 Dose: 250 mg Zolpidem Tartrate (Ambien) 5 mg PO HS PRN PRN Reason: Insomnia Stop: 05/06/17 21:19 General: demented HEENT: NC/AT, PERRLA, anicteric sclerae, throat clear Neck: Supple, No JVD, No thyromegaly, +2 carotid pulse wo bruit, No LAD Cardiovascular: RRR, Normal S1, Normal S2, without murmur Abdomen: non-tender, non-distended Extremities: clear Neurological: no change Internal Medicine Assmt/Plan - Assessment Assessment: 1.HEMATUREA. 2.ANEMIA. 3.SP TURP. 4.DEMENTIA. - Plan Plan: CONTINUE O0N CURRENT MEDICATION AND DIET.
--- NOTE | 2017-03-10 13:40 | Progress Notes ---
DATE: 03/10/[address] Durant. Case discussed with staff of the patient, reviewed records. This is a 81-year-old male who was transferred from [facility] because of increasing confusion, agitation and has also been resisting care, has not been able to answer any questions coherently, has been confused, has been easily agitated, irritable, restless, fighting with staff. Unable to follow any of the staff direction, paranoid with a history of dementia and history of psychosis. The patient currently is on Aricept 5 mg at bedtime and Namenda 10 mg daily. He is also on Seroquel 12.5 mg twice a day and 50 mg at bedtime with Depakote 250 mg twice a day with no side effects, no sedation, no nausea, no extrapyramidal symptoms. He seems to be a little bit calmer and at this point, we will continue the same and we will continue outpatient group therapy, milieu therapy, adjust medication as needed. JOB# [id number]
--- NOTE | 2017-03-10 19:45 | General Progress Note ---
Subjective - Review of Systems Service Date: 03/10/17 Subjective: sitting in chair no complaint Objective - Results Result Diagrams: 03/09/17 06:55 03/09/17 06:55 Recent Labs: Laboratory Last Values WBC 9.3 Th/cmm (4.8-10.8) 03/09/17 06:55 RBC 3.60 Mil/cmm (3.80-5.80) L 03/09/17 06:55 Hgb 11.1 gm/dL (12-16) L 03/09/17 06:55 Hct 32.5 % (41.0-60) L 03/09/17 06:55 MCV 90.4 fl (80-99) 03/09/17 06:55 MCH 30.9 pg (27.0-31.0) 03/09/17 06:55 MCHC Differential 34.2 pg (28.0-36.0) 03/09/17 06:55 RDW 14.5 % (11.5-20.0) 03/09/17 06:55 Plt Count 463 Th/cmm (150-400) H 03/09/17 06:55 MPV 7.5 fl 03/09/17 06:55 Neutrophils % 57.8 % (40.0-80.0) 03/09/17 06:55 Lymphocytes % 24.4 % (20.0-50.0) 03/09/17 06:55 Monocytes % 14.9 % (2.0-10.0) H 03/09/17 06:55 Eosinophils % 2.6 % (0.0-5.0) 03/09/17 06:55 Basophils % 0.3 % (0.0-2.0) 03/09/17 06:55 Sodium 143 mEq/L (136-145) 03/09/17 06:55 Potassium 4.2 mEq/L (3.5-5.1) 03/09/17 06:55 Chloride 110 mEq/L (98-107) H 03/09/17 06:55 Carbon Dioxide 24.9 mEq/L (21.0-31.0) 03/09/17 06:55 Anion Gap 12.3 (7.0-16.0) 03/09/17 06:55 BUN 39 mg/dL (7-25) H 03/09/17 06:55 Creatinine 1.2 mg/dL (0.7-1.3) 03/09/17 06:55 Est GFR ( Amer) TNP 03/09/17 06:55 Est GFR (Non-Af Amer) TNP 03/09/17 06:55 BUN/Creatinine Ratio 32.5 03/09/17 06:55 Glucose 115 mg/dL (70-105) H 03/09/17 06:55 Calcium 9.9 mg/dL (8.6-10.3) 03/09/17 06:55 Total Bilirubin 0.3 mg/dL (0.3-1.0) 03/09/17 06:55 AST 19 U/L (13-39) 03/09/17 06:55 ALT 17 U/L (7-52) 03/09/17 06:55 Alkaline Phosphatase 45 U/L (34-104) 03/09/17 06:55 Total Protein 6.6 gm/dL (6.0-8.3) 03/09/17 06:55 Albumin 3.6 gm/dL (4.2-5.5) L 03/09/17 06:55 Globulin 3.0 gm/dL 03/09/17 06:55 Albumin/Globulin Ratio 1.2 (1.0-1.8) 03/09/17 06:55 - Physical Exam Vitals and I&O: Vital Signs Temp 97.8 F 03/10/17 14:00 Pulse 95 03/10/17 14:00 Resp 20 03/10/17 14:00 BP 135/87 03/10/17 14:00 Pulse Ox 97 03/10/17 14:00 Intake & Output 03/10/17 03/10/17 03/11/17 06:59 18:59 06:59 Intake Total 1200 Balance 1200 Intake: Oral 1200 Other: # Bowel Movements 1 Stool Characteristics Soft Brown Active Medications: Current Medications Acetaminophen (Tylenol) 650 mg PO Q4H PRN PRN Reason: Mild Pain/Headache/T above 101 Stop: 05/06/17 21:19 Last Admin: 03/10/17 14:28 Dose: 650 mg Acetaminophen (Tylenol) 650 mg PO Q4H PRN PRN Reason: pain Stop: 05/06/17 22:14 Acetaminophen/Hydrocodone Bitart ([place] 5mg/325mg) 1 tab PO Q6H PRN PRN Reason: Moderate Pain Stop: 05/06/17 21:19 Al Hydrox/Mg Hydrox/Simethicone (Maalox) 30 ml PO Q6H PRN PRN Reason: Dyspepsia Stop: 05/06/17 21:19 Ascorbic Acid (Vitamin C) 500 mg PO DAILY [facility] Stop: 05/07/17 08:59 Last Admin: 03/10/17 09:00 Dose: 500 mg Aspirin (Ecotrin) 81 mg PO DAILY [facility] Stop: 05/07/17 08:59 Last Admin: 03/10/17 09:00 Dose: 81 mg Docusate Sodium (Colace) 100 mg PO DAILY [facility] Stop: 05/07/17 08:59 Last Admin: 03/10/17 09:01 Dose: 100 mg Donepezil HCl (Aricept) 5 mg PO HS [facility] Stop: 05/07/17 20:59 Last Admin: 03/09/17 20:48 Dose: 5 mg Hydrocortisone (Hydrocortisone 2.5%) 1 appl TP BID [facility] Stop: 05/07/17 08:59 Last Admin: 03/10/17 16:23 Dose: 1 appl Hydroxyzine HCl (Atarax) 10 mg PO Q8H PRN; Protocol PRN Reason: Itching Stop: 05/06/17 22:14 Lorazepam (Ativan) 1 mg PO Q6H PRN; Protocol PRN Reason: Anxiety/Agitation Stop: 05/06/17 21:19 Magnesium Hydroxide (Milk Of Magnesia) 30 ml PO HS PRN PRN Reason: Constipation Stop: 05/06/17 22:04 Memantine (Namenda) 10 mg PO DAILY [facility] Stop: 05/07/17 08:59 Last Admin: 03/10/17 08:59 Dose: 10 mg Quetiapine Fumarate (Seroquel) 12.5 mg PO BID [facility] PRN Reason: Protocol Stop: 05/07/17 08:59 Last Admin: 03/10/17 16:24 Dose: 12.5 mg Quetiapine Fumarate (Seroquel) 50 mg PO HS [facility] PRN Reason: Protocol Stop: 05/07/17 20:59 Last Admin: 03/09/17 20:48 Dose: 50 mg Senna (Senna) 17.2 mg PO HS [facility] Stop: 05/07/17 20:59 Last Admin: 03/09/17 20:48 Dose: 17.2 mg Senna (Senna) 17.2 mg PO DAILY [facility] Stop: 05/07/17 08:59 Last Admin: 03/10/17 09:01 Dose: 17.2 mg Valproate Sodium (Depakene) 250 mg PO BID [facility] Stop: 05/07/17 08:59 Last Admin: 03/10/17 16:23 Dose: 250 mg Zolpidem Tartrate (Ambien) 5 mg PO HS PRN PRN Reason: Insomnia Stop: 05/06/17 21:19 General: No acute distress HEENT: Atraumatic, PERRLA Neck: Supple, JVD Cardiovascular: Regular rate, Normal S1, Normal S2 Lungs: Clear to auscultation Abdomen: Bowel sounds, Soft Neurological: Other (no change) Assessment/Plan - Problem List Patient Problems: All Active Problems DEMENTIA (Acute) HTN (Acute) PSYCHOSIS (Acute) - Assessment Assessment: 1.HEMATUREA. 2.ANEMIA. 3.SP TURP. 4.DEMENTIA. - Plan Plan: continue current treatment
--- NOTE | 2017-03-10 21:29 | Progress Notes ---
DATE: 03/10/2017 SUBJECTIVE: Chart reviewed and the patient interviewed. Also discussed the patient's condition with the staff and reviewed records and labs. The patient continued to be severely agitated and he is still in irritable mood. The patient also is still confused. The patient also is still trying to hit staff while helping him with his ADLs. Also, he is still restless and disheveled. During interview, the patient is disheveled. He is restless and seems to be preoccupied. Rambling and disorganized thoughts and unable to answer any of my questions coherently. ASSESSMENT: The patient is still psychotic and confused. TREATMENT PLAN: Continue to monitor his behavior and his condition closely. The patient started on Seroquel and we will adjust the dose. ESTIMATED LENGTH OF STAY: 5-7 days. LABS: No new labs are available for review. REASON FOR CONTINUED HOSPITAL STAY: The patient is still agitated and can be dangerous to others and still confused and needs adjustment to psychotropic medications. [facility]# [id number]
[2017-03-11] MEDS: Hydrocodone/APAP 5mg/325mg Tab PO PRN (12:20)
--- NOTE | 2017-03-11 13:27 | Progress Notes ---
DATE: 03/11/[address] Durant. Case was discussed with staff of the patient, reviewed records. The patient continues to be confused, restless. Continues to be having episodes. Continues to be unable to participate in a meaningful conversation. No side effects with the medication, no sedation, no nausea, and also from the symptoms. We will continue outpatient group therapy, milieu therapy, adjust medication as needed. [facility]# [id number]
--- NOTE | 2017-03-11 13:56 | General Progress Note ---
Subjective - Review of Systems Service Date: 03/11/17 Subjective: sitting in chair no complaint Objective - Results Result Diagrams: 03/09/17 06:55 03/09/17 06:55 Recent Labs: Laboratory Last Values WBC 9.3 Th/cmm (4.8-10.8) 03/09/17 06:55 RBC 3.60 Mil/cmm (3.80-5.80) L 03/09/17 06:55 Hgb 11.1 gm/dL (12-16) L 03/09/17 06:55 Hct 32.5 % (41.0-60) L 03/09/17 06:55 MCV 90.4 fl (80-99) 03/09/17 06:55 MCH 30.9 pg (27.0-31.0) 03/09/17 06:55 MCHC Differential 34.2 pg (28.0-36.0) 03/09/17 06:55 RDW 14.5 % (11.5-20.0) 03/09/17 06:55 Plt Count 463 Th/cmm (150-400) H 03/09/17 06:55 MPV 7.5 fl 03/09/17 06:55 Neutrophils % 57.8 % (40.0-80.0) 03/09/17 06:55 Lymphocytes % 24.4 % (20.0-50.0) 03/09/17 06:55 Monocytes % 14.9 % (2.0-10.0) H 03/09/17 06:55 Eosinophils % 2.6 % (0.0-5.0) 03/09/17 06:55 Basophils % 0.3 % (0.0-2.0) 03/09/17 06:55 Sodium 143 mEq/L (136-145) 03/09/17 06:55 Potassium 4.2 mEq/L (3.5-5.1) 03/09/17 06:55 Chloride 110 mEq/L (98-107) H 03/09/17 06:55 Carbon Dioxide 24.9 mEq/L (21.0-31.0) 03/09/17 06:55 Anion Gap 12.3 (7.0-16.0) 03/09/17 06:55 BUN 39 mg/dL (7-25) H 03/09/17 06:55 Creatinine 1.2 mg/dL (0.7-1.3) 03/09/17 06:55 Est GFR ( Amer) TNP 03/09/17 06:55 Est GFR (Non-Af Amer) TNP 03/09/17 06:55 BUN/Creatinine Ratio 32.5 03/09/17 06:55 Glucose 115 mg/dL (70-105) H 03/09/17 06:55 Calcium 9.9 mg/dL (8.6-10.3) 03/09/17 06:55 Total Bilirubin 0.3 mg/dL (0.3-1.0) 03/09/17 06:55 AST 19 U/L (13-39) 03/09/17 06:55 ALT 17 U/L (7-52) 03/09/17 06:55 Alkaline Phosphatase 45 U/L (34-104) 03/09/17 06:55 Total Protein 6.6 gm/dL (6.0-8.3) 03/09/17 06:55 Albumin 3.6 gm/dL (4.2-5.5) L 03/09/17 06:55 Globulin 3.0 gm/dL 03/09/17 06:55 Albumin/Globulin Ratio 1.2 (1.0-1.8) 03/09/17 06:55 - Physical Exam Vitals and I&O: Vital Signs Temp 98.6 F 03/10/17 20:27 Pulse 70 03/10/17 20:27 Resp 19 03/10/17 20:27 BP 126/65 03/10/17 20:27 Pulse Ox 96 03/10/17 20:27 Intake & Output 03/10/17 03/11/17 03/11/17 18:59 06:59 18:59 Intake Total 1200 240 Balance 1200 240 Intake: Oral 1200 240 Other: # Voids 1 # Bowel Movements 1 Stool Characteristics Soft Brown Active Medications: Current Medications Acetaminophen (Tylenol) 650 mg PO Q4H PRN PRN Reason: Mild Pain/Headache/T above 101 Stop: 05/06/17 21:19 Last Admin: 03/10/17 14:28 Dose: 650 mg Acetaminophen (Tylenol) 650 mg PO Q4H PRN PRN Reason: pain Stop: 05/06/17 22:14 Acetaminophen/Hydrocodone Bitart ([place] 5mg/325mg) 1 tab PO Q6H PRN PRN Reason: Moderate Pain Stop: 05/06/17 21:19 Last Admin: 03/11/17 12:20 Dose: 1 tab Al Hydrox/Mg Hydrox/Simethicone (Maalox) 30 ml PO Q6H PRN PRN Reason: Dyspepsia Stop: 05/06/17 21:19 Ascorbic Acid (Vitamin C) 500 mg PO DAILY [facility] Stop: 05/07/17 08:59 Last Admin: 03/11/17 08:38 Dose: 500 mg Aspirin (Ecotrin) 81 mg PO DAILY [facility] Stop: 05/07/17 08:59 Last Admin: 03/11/17 08:38 Dose: 81 mg Docusate Sodium (Colace) 100 mg PO DAILY [facility] Stop: 05/07/17 08:59 Last Admin: 03/11/17 08:38 Dose: 100 mg Donepezil HCl (Aricept) 5 mg PO HS [facility] Stop: 05/07/17 20:59 Last Admin: 03/10/17 21:15 Dose: 5 mg Hydrocortisone (Hydrocortisone 2.5%) 1 appl TP BID [facility] Stop: 05/07/17 08:59 Last Admin: 03/11/17 08:39 Dose: 1 appl Hydroxyzine HCl (Atarax) 10 mg PO Q8H PRN; Protocol PRN Reason: Itching Stop: 05/06/17 22:14 Lorazepam (Ativan) 1 mg PO Q6H PRN; Protocol PRN Reason: Anxiety/Agitation Stop: 05/06/17 21:19 Magnesium Hydroxide (Milk Of Magnesia) 30 ml PO HS PRN PRN Reason: Constipation Stop: 05/06/17 22:04 Memantine (Namenda) 10 mg PO DAILY [facility] Stop: 05/07/17 08:59 Last Admin: 03/11/17 08:38 Dose: 10 mg Quetiapine Fumarate (Seroquel) 12.5 mg PO BID [facility] PRN Reason: Protocol Stop: 05/07/17 08:59 Last Admin: 03/11/17 08:38 Dose: 12.5 mg Quetiapine Fumarate (Seroquel) 50 mg PO HS [facility] PRN Reason: Protocol Stop: 05/07/17 20:59 Last Admin: 12/09/17 21:15 Dose: 50 mg Senna (Senna) 17.2 mg PO HS [facility] Stop: 05/07/17 20:59 Last Admin: 03/10/17 21:15 Dose: 17.2 mg Senna (Senna) 17.2 mg PO DAILY [facility] Stop: 05/07/17 08:59 Last Admin: 03/11/17 08:51 Dose: 17.2 mg Valproate Sodium (Depakene) 250 mg PO BID [facility] Stop: 05/07/17 08:59 Last Admin: 03/11/17 08:38 Dose: 250 mg Zolpidem Tartrate (Ambien) 5 mg PO HS PRN PRN Reason: Insomnia Stop: 05/06/17 21:19 General: No acute distress HEENT: Atraumatic, PERRLA Neck: Supple, JVD Cardiovascular: Regular rate, Normal S1, Normal S2 Lungs: Clear to auscultation Abdomen: Bowel sounds, Soft Neurological: Other (no change) Assessment/Plan - Problem List Patient Problems: All Active Problems DEMENTIA (Acute) HTN (Acute) PSYCHOSIS (Acute) - Assessment Assessment: 1.HEMATUREA. 2.ANEMIA. 3.SP TURP. 4.DEMENTIA. - Plan Plan: continue current treatment
[2017-03-12] MEDS: Hydrocodone/APAP 5mg/325mg Tab PO PRN (17:57)
--- NOTE | 2017-03-12 18:19 | Internal Medicine Prog Note ---
Internal Medicine Subjective - Subjective Service Date: 03/12/17 Patient seen and examined:: without staff Patient is:: awake, in wheelchair, confused Per staff patient has:: no adverse event Internal Medicine Objective - Results Result Diagrams: 03/09/17 06:55 03/09/17 06:55 Recent Labs: Laboratory Last Values WBC 9.3 Th/cmm (4.8-10.8) 03/09/17 06:55 RBC 3.60 Mil/cmm (3.80-5.80) L 03/09/17 06:55 Hgb 11.1 gm/dL (12-16) L 03/09/17 06:55 Hct 32.5 % (41.0-60) L 03/09/17 06:55 MCV 90.4 fl (80-99) 03/09/17 06:55 MCH 30.9 pg (27.0-31.0) 03/09/17 06:55 MCHC Differential 34.2 pg (28.0-36.0) 03/09/17 06:55 RDW 14.5 % (11.5-20.0) 03/09/17 06:55 Plt Count 463 Th/cmm (150-400) H 03/09/17 06:55 MPV 7.5 fl 03/09/17 06:55 Neutrophils % 57.8 % (40.0-80.0) 03/09/17 06:55 Lymphocytes % 24.4 % (20.0-50.0) 03/09/17 06:55 Monocytes % 14.9 % (2.0-10.0) H 03/09/17 06:55 Eosinophils % 2.6 % (0.0-5.0) 03/09/17 06:55 Basophils % 0.3 % (0.0-2.0) 03/09/17 06:55 Sodium 143 mEq/L (136-145) 03/09/17 06:55 Potassium 4.2 mEq/L (3.5-5.1) 03/09/17 06:55 Chloride 110 mEq/L (98-107) H 03/09/17 06:55 Carbon Dioxide 24.9 mEq/L (21.0-31.0) 03/09/17 06:55 Anion Gap 12.3 (7.0-16.0) 03/09/17 06:55 BUN 39 mg/dL (7-25) H 03/09/17 06:55 Creatinine 1.2 mg/dL (0.7-1.3) 03/09/17 06:55 Est GFR ( Amer) TNP 03/09/17 06:55 Est GFR (Non-Af Amer) TNP 03/09/17 06:55 BUN/Creatinine Ratio 32.5 03/09/17 06:55 Glucose 115 mg/dL (70-105) H 03/09/17 06:55 Calcium 9.9 mg/dL (8.6-10.3) 03/09/17 06:55 Total Bilirubin 0.3 mg/dL (0.3-1.0) 03/09/17 06:55 AST 19 U/L (13-39) 03/09/17 06:55 ALT 17 U/L (7-52) 03/09/17 06:55 Alkaline Phosphatase 45 U/L (34-104) 03/09/17 06:55 Total Protein 6.6 gm/dL (6.0-8.3) 03/09/17 06:55 Albumin 3.6 gm/dL (4.2-5.5) L 03/09/17 06:55 Globulin 3.0 gm/dL 03/09/17 06:55 Albumin/Globulin Ratio 1.2 (1.0-1.8) 03/09/17 06:55 - Physical Exam Vitals and I&O: Vital Signs Temp 97.6 F 03/12/17 14:00 Pulse 109 03/12/17 14:00 Resp 18 03/12/17 14:00 BP 128/73 03/12/17 14:00 Pulse Ox 96 03/12/17 14:00 Intake & Output 03/11/17 03/12/17 03/12/17 18:59 06:59 18:59 Intake Total 481 028 6358 Output Total 1 Balance 948 333 4972 Intake: Oral 582 616 9817 Output: Stool 1 Other: # Voids 3 2 4 # Bowel Movements 0 0 0 Active Medications: Current Medications Acetaminophen (Tylenol) 650 mg PO Q4H PRN PRN Reason: Mild Pain/Headache/T above 101 Stop: 05/06/17 21:19 Last Admin: 03/10/17 14:28 Dose: 650 mg Acetaminophen (Tylenol) 650 mg PO Q4H PRN PRN Reason: pain Stop: 05/06/17 22:14 Acetaminophen/Hydrocodone Bitart ([place] 5mg/325mg) 1 tab PO Q6H PRN PRN Reason: Moderate Pain Stop: 05/06/17 21:19 Last Admin: 03/12/17 17:57 Dose: 1 tab Al Hydrox/Mg Hydrox/Simethicone (Maalox) 30 ml PO Q6H PRN PRN Reason: Dyspepsia Stop: 05/06/17 21:19 Ascorbic Acid (Vitamin C) 500 mg PO DAILY [facility] Stop: 05/07/17 08:59 Last Admin: 03/12/17 08:22 Dose: 500 mg Docusate Sodium (Colace) 100 mg PO DAILY [facility] Stop: 05/07/17 08:59 Last Admin: 03/12/17 08:22 Dose: 100 mg Donepezil HCl (Aricept) 5 mg PO HS [facility] Stop: 05/07/17 20:59 Last Admin: 03/11/17 20:49 Dose: 5 mg Hydrocortisone (Hydrocortisone 2.5%) 1 appl TP BID [facility] Stop: 05/07/17 08:59 Last Admin: 03/12/17 17:58 Dose: 1 appl Hydroxyzine HCl (Atarax) 10 mg PO Q8H PRN; Protocol PRN Reason: Itching Stop: 05/06/17 22:14 Lorazepam (Ativan) 1 mg PO Q6H PRN; Protocol PRN Reason: Anxiety/Agitation Stop: 05/06/17 21:19 Last Admin: 03/12/17 11:40 Dose: 1 mg Magnesium Hydroxide (Milk Of Magnesia) 30 ml PO HS PRN PRN Reason: Constipation Stop: 05/06/17 22:04 Memantine (Namenda) 10 mg PO DAILY [facility] Stop: 05/07/17 08:59 Last Admin: 03/12/17 08:22 Dose: 10 mg Quetiapine Fumarate (Seroquel) 12.5 mg PO BID [facility] PRN Reason: Protocol Stop: 05/07/17 08:59 Last Admin: 03/12/17 17:40 Dose: 12.5 mg Quetiapine Fumarate (Seroquel) 50 mg PO HS [facility] PRN Reason: Protocol Stop: 05/07/17 20:59 Last Admin: 12/10/17 20:49 Dose: 50 mg Senna (Senna) 17.2 mg PO HS [facility] Stop: 05/07/17 20:59 Last Admin: 03/11/17 20:49 Dose: 17.2 mg Senna (Senna) 17.2 mg PO DAILY [facility] Stop: 05/07/17 08:59 Last Admin: 03/12/17 08:22 Dose: 17.2 mg Valproate Sodium (Depakene) 250 mg PO BID [facility] Stop: 05/07/17 08:59 Last Admin: 03/12/17 17:40 Dose: 250 mg Zolpidem Tartrate (Ambien) 5 mg PO HS PRN PRN Reason: Insomnia Stop: 05/06/17 21:19 General: demented HEENT: NC/AT, PERRLA, anicteric sclerae, throat clear Neck: Supple, No JVD, No thyromegaly, +2 carotid pulse wo bruit, No LAD Cardiovascular: RRR, Normal S1, Normal S2, without murmur Abdomen: non-tender, non-distended Extremities: clear Neurological: no change Internal Medicine Assmt/Plan - Assessment Assessment: 1.HEMATUREA. 2.ANEMIA. 3.SP TURP. 4.DEMENTIA. - Plan Plan: CONTINUE O0N CURRENT MEDICATION AND DIET. Nutritional Asmnt/Malnutr-PDOC - Dietary Evaluation Malnutrition Findings (Please click <Entered> for more info): Nutritional Asmnt/Malnutrition Start: 03/12/17 13: 17 Text: Status: Complete Freq: Document 03/12/17 13:18 LCHENG (Rec: 03/12/17 13:27 [id number] Nutritional Asmnt/Malnutrition Patient General Information Nutritional Screening Moderate Risk Diagnosis psychosis Pertinent Medical Hx/Surgical Hx HTN, dementia, DJD, BPH, s/p transurethral prostatic resection Subjective Information Pt seen lying in bad, having pain. Spoke with nurse, pt had pain and a lot blood on diaper today. Per notes, PO intake 75-100%. Pt appeared to have mild muscle wasting on arms. Current Diet Order/ Nutrition Support Pureed Pertinent Medications Vit C, colace, seroquel, senna Pertinent Labs 03/09 Cl 110H, BUN 39H, Glu 115H, Alb 3.6L Nutritional Hx/Data Height 1.96 m Height (Calculated Centimeters) 195.6 Current Weight (lbs) 70.307 kg Weight (Calculated Kilograms) 70.3 Weight (Calculated Grams) 25083.8 [place] Body Weight 208 % [place] Body Weight 75 Body Mass Index (BMI) 18.3 Weight Status Underweight GI Symptoms GI Symptoms None Last BM 03/10 Skin Integrity/Comment: bruise Current %PO Good (75-100%) Estimated Nutritional Goals BEE in Kcals: Using Current wt Calories/Kcals/Kg 30-35 Kcals Calculated Protein: Using Current wt Protein g/k-1.2 Protein Calculated 71-85 Fluid: ml Nutritional Problem 1. Problem Problem underweight Etiology ?imbalanced energy intake Signs/Symptoms: BMI 18.3 Malnutrition Alert Protein-Calorie Malnutrition N/A Is there a minimum of two criteria No selected? Query Text:Check all the applicable criteria. A minimum of two criteria are recommended for diagnosis of either severe or non-severe malnutrition. Intervention/Recommendation Comments 1. Continue with current diet as ordered. 2. Monitor PO intake, wt weekly, labs and skin integrity 3. F/U as low risk in 7 days, 03/19, PO check 03/15 Expected Outcomes/Goals Expected Outcomes/Goals 1. PO intake to meet at least 75% of nutritional needs. 2. Wt stability, change toward to IBW; skin to remain intact , labs to approach WNL.
[2017-03-13 07:30] LABS: % BASOPHILS 0.7 % (0.0-2.0); % EOSINOPHILS 1.3 % (0.0-5.0); % LYMPHOCYTES 21.2 % (20.0-50.0); % MONOCYTES 11.4 % (2.0-10.0); % NEUTROPHILS 65.4 % (40.0-80.0); EOSINOPHILE ABSOLUTE 0.1 Th/cmm (0.1-0.4); HEMOGLOBIN 9.4 gm/dL (12-16); LYMPHOCYTE ABSOLUTE 1.5 Th/cmm (1.5-3.0); MEAN CELL VOLUME 88.5 fl (80-99); MEAN CORPUSCULAR HEMOGLOBIN 30.2 pg (27.0-31.0); MEAN CORPUSCULAR HGB CONC 34.1 pg (28.0-36.0); MEAN PLATELET VOLUME 7.5 fl; MONOCYTE ABSOLUTE 0.8 Th/cmm (0.3-1.0); NEUTROPHILE ABSOLUTE 4.7 Th/cmm (1.8-8.0); PLATELET COUNT 375 Th/cmm (150-400); RED BLOOD COUNT 3.13 Mil/cmm (3.80-5.80); RED CELL DISTRIBUTION WIDTH 13.7 % (11.5-20.0)
[2017-03-13 07:31] LABS: HEMATOCRIT 27.7 % (41.0-60); WHITE BLOOD COUNT 7.1 Th/cmm (4.8-10.8)
[2017-03-13 07:55] LABS: ALBUMIN 3.1 gm/dL (4.2-5.5); ALKALINE PHOSPHATASE 46 U/L (34-104); ANION GAP 10.8 (7.0-16.0); BILIRUBIN,TOTAL 0.6 mg/dL (0.3-1.0); BUN - UREA NITROGEN 34 mg/dL (7-25); CALCIUM SERUM 9.6 mg/dL (8.6-10.3); CHLORIDE 109 mEq/L (98-107); CREATININE - SERUM 1.1 mg/dL (0.7-1.3); GLUCOSE 85 mg/dL (70-105); POTASSIUM SERUM 3.8 mEq/L (3.5-5.1); SGOT 29 U/L (13-39); SGPT/ALT 17 U/L (7-52); SODIUM SERUM 142 mEq/L (136-145); TOTAL PROTEIN,SERUM 6.2 gm/dL (6.0-8.3)
--- NOTE | 2017-03-13 11:26 | Internal Medicine Prog Note ---
Internal Medicine Subjective - Subjective Patient is:: awake, in wheelchair, confused Per staff patient has:: no adverse event Internal Medicine Objective - Results Result Diagrams: 03/13/17 07:03 03/13/17 07:03 Recent Labs: Laboratory Last Values WBC 7.1 Th/cmm (4.8-10.8) D 03/13/17 07:03 RBC 3.13 Mil/cmm (3.80-5.80) L 03/13/17 07:03 Hgb 9.4 gm/dL (12-16) L 03/13/17 07:03 Hct 27.7 % (41.0-60) L D 03/13/17 07:03 MCV 88.5 fl (80-99) 03/13/17 07:03 MCH 30.2 pg (27.0-31.0) 03/13/17 07:03 MCHC Differential 34.1 pg (28.0-36.0) 03/13/17 07:03 RDW 13.7 % (11.5-20.0) 03/13/17 07:03 Plt Count 375 Th/cmm (150-400) 03/13/17 07:03 MPV 7.5 fl 03/13/17 07:03 Neutrophils % 65.4 % (40.0-80.0) 03/13/17 07:03 Lymphocytes % 21.2 % (20.0-50.0) 03/13/17 07:03 Monocytes % 11.4 % (2.0-10.0) H 03/13/17 07:03 Eosinophils % 1.3 % (0.0-5.0) 03/13/17 07:03 Basophils % 0.7 % (0.0-2.0) 03/13/17 07:03 Sodium 142 mEq/L (136-145) 03/13/17 07:03 Potassium 3.8 mEq/L (3.5-5.1) 03/13/17 07:03 Chloride 109 mEq/L (98-107) H 03/13/17 07:03 Carbon Dioxide 26.0 mEq/L (21.0-31.0) 03/13/17 07:03 Anion Gap 10.8 (7.0-16.0) 03/13/17 07:03 BUN 34 mg/dL (7-25) H 03/13/17 07:03 Creatinine 1.1 mg/dL (0.7-1.3) 03/13/17 07:03 Est GFR ( Amer) TNP 03/13/17 07:03 Est GFR (Non-Af Amer) TNP 03/13/17 07:03 BUN/Creatinine Ratio 30.9 03/13/17 07:03 Glucose 85 mg/dL (70-105) 03/13/17 07:03 Calcium 9.6 mg/dL (8.6-10.3) 03/13/17 07:03 Total Bilirubin 0.6 mg/dL (0.3-1.0) 03/13/17 07:03 AST 29 U/L (13-39) 03/13/17 07:03 ALT 17 U/L (7-52) 03/13/17 07:03 Alkaline Phosphatase 46 U/L (34-104) 03/13/17 07:03 Total Protein 6.2 gm/dL (6.0-8.3) 03/13/17 07:03 Albumin 3.1 gm/dL (4.2-5.5) L 03/13/17 07:03 Globulin 3.1 gm/dL 03/13/17 07:03 Albumin/Globulin Ratio 1.0 (1.0-1.8) 03/13/17 07:03 - Physical Exam Vitals and I&O: Vital Signs Temp 98 F 03/13/17 06:28 Pulse 97 03/13/17 06:28 Resp 19 03/13/17 06:28 BP 116/66 03/13/17 06:28 Pulse Ox 96 03/13/17 06:28 Intake & Output 03/12/17 03/13/17 03/13/17 18:59 06:59 18:59 Intake Total 1800 Balance 1800 Intake: Oral 1800 Other: # Voids 4 3 # Bowel Movements 0 1 Active Medications: Current Medications Acetaminophen (Tylenol) 650 mg PO Q4H PRN PRN Reason: Mild Pain/Headache/T above 101 Stop: 05/06/17 21:19 Last Admin: 03/10/17 14:28 Dose: 650 mg Acetaminophen (Tylenol) 650 mg PO Q4H PRN PRN Reason: pain Stop: 05/06/17 22:14 Acetaminophen/Hydrocodone Bitart ([place] 5mg/325mg) 1 tab PO Q6H PRN PRN Reason: Moderate Pain Stop: 05/06/17 21:19 Last Admin: 03/12/17 17:57 Dose: 1 tab Al Hydrox/Mg Hydrox/Simethicone (Maalox) 30 ml PO Q6H PRN PRN Reason: Dyspepsia Stop: 05/06/17 21:19 Ascorbic Acid (Vitamin C) 500 mg PO DAILY [facility] Stop: 05/07/17 08:59 Last Admin: 03/13/17 08:21 Dose: 500 mg Docusate Sodium (Colace) 100 mg PO DAILY [facility] Stop: 05/07/17 08:59 Last Admin: 03/13/17 08:21 Dose: 100 mg Donepezil HCl (Aricept) 5 mg PO HS [facility] Stop: 05/07/17 20:59 Last Admin: 03/12/17 21:10 Dose: 5 mg Hydrocortisone (Hydrocortisone 2.5%) 1 appl TP BID [facility] Stop: 05/07/17 08:59 Last Admin: 03/12/17 17:58 Dose: 1 appl Hydroxyzine HCl (Atarax) 10 mg PO Q8H PRN; Protocol PRN Reason: Itching Stop: 05/06/17 22:14 Lorazepam (Ativan) 1 mg PO Q6H PRN; Protocol PRN Reason: Anxiety/Agitation Stop: 05/06/17 21:19 Last Admin: 03/12/17 11:40 Dose: 1 mg Magnesium Hydroxide (Milk Of Magnesia) 30 ml PO HS PRN PRN Reason: Constipation Stop: 05/06/17 22:04 Memantine (Namenda) 10 mg PO DAILY [facility] Stop: 05/07/17 08:59 Last Admin: 03/13/17 08:21 Dose: 10 mg Quetiapine Fumarate (Seroquel) 12.5 mg PO BID [facility] PRN Reason: Protocol Stop: 05/07/17 08:59 Last Admin: 03/13/17 08:21 Dose: 12.5 mg Quetiapine Fumarate (Seroquel) 50 mg PO HS [facility] PRN Reason: Protocol Stop: 05/07/17 20:59 Last Admin: 03/12/17 21:09 Dose: 50 mg Senna (Senna) 17.2 mg PO HS [facility] Stop: 05/07/17 20:59 Last Admin: 03/12/17 21:00 Dose: 17.2 mg Senna (Senna) 17.2 mg PO DAILY [facility] Stop: 05/07/17 08:59 Last Admin: 03/13/17 08:21 Dose: 17.2 mg Valproate Sodium (Depakene) 250 mg PO BID [facility] Stop: 05/07/17 08:59 Last Admin: 03/13/17 08:21 Dose: 250 mg Zolpidem Tartrate (Ambien) 5 mg PO HS PRN PRN Reason: Insomnia Stop: 05/06/17 21:19 General: demented HEENT: NC/AT, PERRLA, anicteric sclerae, throat clear Neck: Supple, No JVD, No thyromegaly, +2 carotid pulse wo bruit, No LAD Cardiovascular: RRR, Normal S1, Normal S2, without murmur Abdomen: non-tender, non-distended Extremities: clear Neurological: no change Internal Medicine Assmt/Plan - Assessment Assessment: 1.HEMATUREA. 2.ANEMIA. 3.SP TURP. 4.DEMENTIA. - Plan Plan: CONTINUE O0N CURRENT MEDICATION AND DIET. Nutritional Asmnt/Malnutr-PDOC - Dietary Evaluation Malnutrition Findings (Please click <Entered> for more info): Nutritional Asmnt/Malnutrition Start: 03/12/17 13: 17 Text: Status: Complete Freq: Document 03/12/17 13:18 LCHENG (Rec: 03/12/17 13:27 LCHENG [email or web address]) Nutritional Asmnt/Malnutrition Patient General Information Nutritional Screening Moderate Risk Diagnosis psychosis Pertinent Medical Hx/Surgical Hx HTN, dementia, DJD, BPH, s/p transurethral prostatic resection Subjective Information Pt seen lying in bad, having pain. Spoke with nurse, pt had pain and a lot blood on diaper today. Per notes, PO intake 75-100%. Pt appeared to have mild muscle wasting on arms. Current Diet Order/ Nutrition Support Pureed Pertinent Medications Vit C, colace, seroquel, senna Pertinent Labs 03/09 Cl 110H, BUN 39H, Glu 115H, Alb 3.6L Nutritional Hx/Data Height 1.96 m Height (Calculated Centimeters) 195.6 Current Weight (lbs) 70.307 kg Weight (Calculated Kilograms) 70.3 Weight (Calculated Grams) 32462.8 [place] Body Weight 208 % [place] Body Weight 75 Body Mass Index (BMI) 18.3 Weight Status Underweight GI Symptoms GI Symptoms None Last BM 03/10 Skin Integrity/Comment: bruise Current %PO Good (75-100%) Estimated Nutritional Goals BEE in Kcals: Using Current wt Calories/Kcals/Kg 30-35 Kcals Calculated Protein: Using Current wt Protein g/k-1.2 Protein Calculated 71-85 Fluid: ml Nutritional Problem 1. Problem Problem underweight Etiology ?imbalanced energy intake Signs/Symptoms: BMI 18.3 Malnutrition Alert Protein-Calorie Malnutrition N/A Is there a minimum of two criteria No selected? Query Text:Check all the applicable criteria. A minimum of two criteria are recommended for diagnosis of either severe or non-severe malnutrition. Intervention/Recommendation Comments 1. Continue with current diet as ordered. 2. Monitor PO intake, wt weekly, labs and skin integrity 3. F/U as low risk in 7 days, 03/19, PO check 03/15 Expected Outcomes/Goals Expected Outcomes/Goals 1. PO intake to meet at least 75% of nutritional needs. 2. Wt stability, change toward to IBW; skin to remain intact , labs to approach WNL.
--- NOTE | 2017-03-13 14:16 | Progress Notes ---
DATE: 03/12/2017 A 81-year-old male transferred from [facility] increased confusion, agitation, resistance to care, restless, fighting with staff. On [id number], the patient is confused, disoriented, not answering any questions. Very poor historian. Dr. Orozco is seeing the patient over the past few days, noting episodes of confusion, restlessness, agitation, unable to participate in meaningful conversations. Medications reviewed. No overt side effects. He remains isolative. Currently on Seroquel, Depakote as well. ASSESSMENT: The patient remains symptomatic, still impulsive and unpredictable. PLAN: We will continue to monitor given his ongoing symptoms, he is not safe for discharge. [facility]# [id number]
[2017-03-13] MEDS: Hydrocodone/APAP 5mg/325mg Tab PO PRN (15:22)
--- NOTE | 2017-03-14 14:35 | Progress Notes ---
DATE: 03/13/2017 SUBJECTIVE: The patient transferred from [facility], agitation, resistive to care, restless, fighting with staff. The patient has been fairly calm, still in a Meron chair impulsive, unpredictable. Staff noting he is highly confused, some tremors noted. It is unclear if this is due to medications. However, he is quite elderly and also on a neuroleptic. So it is possible that it is from the medications. He remains in a Meron chair, unable to really interact with him. AO to name only. Sleeping fairly well. Needs a lot of redirection. ASSESSMENT: The patient remains symptomatic, highly confused, disoriented, some tremulousness noted. PLAN: We will lower Seroquel to see if there is an improvement. He has been calmer. JOB# [id number]
--- NOTE | 2017-03-14 19:59 | Internal Medicine Prog Note ---
Internal Medicine Subjective - Subjective Service Date: 03/14/17 Patient seen and examined:: without staff Patient is:: awake, in wheelchair, confused Per staff patient has:: no adverse event Internal Medicine Objective - Results Result Diagrams: 03/13/17 07:03 03/13/17 07:03 Recent Labs: Laboratory Last Values WBC 7.1 Th/cmm (4.8-10.8) D 03/13/17 07:03 RBC 3.13 Mil/cmm (3.80-5.80) L 03/13/17 07:03 Hgb 9.4 gm/dL (12-16) L 03/13/17 07:03 Hct 27.7 % (41.0-60) L D 03/13/17 07:03 MCV 88.5 fl (80-99) 03/13/17 07:03 MCH 30.2 pg (27.0-31.0) 03/13/17 07:03 MCHC Differential 34.1 pg (28.0-36.0) 03/13/17 07:03 RDW 13.7 % (11.5-20.0) 03/13/17 07:03 Plt Count 375 Th/cmm (150-400) 03/13/17 07:03 MPV 7.5 fl 03/13/17 07:03 Neutrophils % 65.4 % (40.0-80.0) 03/13/17 07:03 Lymphocytes % 21.2 % (20.0-50.0) 03/13/17 07:03 Monocytes % 11.4 % (2.0-10.0) H 03/13/17 07:03 Eosinophils % 1.3 % (0.0-5.0) 03/13/17 07:03 Basophils % 0.7 % (0.0-2.0) 03/13/17 07:03 Sodium 142 mEq/L (136-145) 03/13/17 07:03 Potassium 3.8 mEq/L (3.5-5.1) 03/13/17 07:03 Chloride 109 mEq/L (98-107) H 03/13/17 07:03 Carbon Dioxide 26.0 mEq/L (21.0-31.0) 03/13/17 07:03 Anion Gap 10.8 (7.0-16.0) 03/13/17 07:03 BUN 34 mg/dL (7-25) H 03/13/17 07:03 Creatinine 1.1 mg/dL (0.7-1.3) 03/13/17 07:03 Est GFR ( Amer) TNP 03/13/17 07:03 Est GFR (Non-Af Amer) TNP 03/13/17 07:03 BUN/Creatinine Ratio 30.9 03/13/17 07:03 Glucose 85 mg/dL (70-105) 03/13/17 07:03 Calcium 9.6 mg/dL (8.6-10.3) 03/13/17 07:03 Total Bilirubin 0.6 mg/dL (0.3-1.0) 03/13/17 07:03 AST 29 U/L (13-39) 03/13/17 07:03 ALT 17 U/L (7-52) 03/13/17 07:03 Alkaline Phosphatase 46 U/L (34-104) 03/13/17 07:03 Total Protein 6.2 gm/dL (6.0-8.3) 03/13/17 07:03 Albumin 3.1 gm/dL (4.2-5.5) L 03/13/17 07:03 Globulin 3.1 gm/dL 03/13/17 07:03 Albumin/Globulin Ratio 1.0 (1.0-1.8) 03/13/17 07:03 - Physical Exam Vitals and I&O: Vital Signs Temp 98 F 03/14/17 14:00 Pulse 98 03/14/17 14:00 Resp 20 03/14/17 14:00 BP 147/56 03/14/17 14:00 Pulse Ox 96 03/14/17 14:00 Intake & Output 03/14/17 03/14/17 03/15/17 06:59 18:59 06:59 Intake Total 120 1200 Balance 120 1200 Intake: Oral 120 1200 Other: # Voids 3 # Bowel Movements 1 Active Medications: Current Medications Acetaminophen (Tylenol) 650 mg PO Q4H PRN PRN Reason: Mild Pain/Headache/T above 101 Stop: 05/06/17 21:19 Last Admin: 03/10/17 14:28 Dose: 650 mg Acetaminophen (Tylenol) 650 mg PO Q4H PRN PRN Reason: pain Stop: 05/06/17 22:14 Acetaminophen/Hydrocodone Bitart ([place] 5mg/325mg) 1 tab PO Q6H PRN PRN Reason: Moderate Pain Stop: 05/06/17 21:19 Last Admin: 03/13/17 15:22 Dose: 1 tab Al Hydrox/Mg Hydrox/Simethicone (Maalox) 30 ml PO Q6H PRN PRN Reason: Dyspepsia Stop: 05/06/17 21:19 Ascorbic Acid (Vitamin C) 500 mg PO DAILY [facility] Stop: 05/07/17 08:59 Last Admin: 03/14/17 08:41 Dose: 500 mg Docusate Sodium (Colace) 100 mg PO DAILY [facility] Stop: 05/07/17 08:59 Last Admin: 03/14/17 08:41 Dose: 100 mg Donepezil HCl (Aricept) 5 mg PO HS [facility] Stop: 05/07/17 20:59 Last Admin: 03/13/17 21:07 Dose: 5 mg Hydrocortisone (Hydrocortisone 2.5%) 1 appl TP BID [facility] Stop: 05/07/17 08:59 Last Admin: 03/14/17 16:10 Dose: 1 appl Hydroxyzine HCl (Atarax) 10 mg PO Q8H PRN; Protocol PRN Reason: Itching Stop: 05/06/17 22:14 Lorazepam (Ativan) 1 mg PO Q6H PRN; Protocol PRN Reason: Anxiety/Agitation Stop: 05/06/17 21:19 Last Admin: 03/13/17 16:08 Dose: 1 mg Magnesium Hydroxide (Milk Of Magnesia) 30 ml PO HS PRN PRN Reason: Constipation Stop: 05/06/17 22:04 Memantine (Namenda) 10 mg PO DAILY [facility] Stop: 05/07/17 08:59 Last Admin: 03/14/17 08:41 Dose: 10 mg Quetiapine Fumarate (Seroquel) 12.5 mg PO BID [facility] PRN Reason: Protocol Stop: 05/07/17 08:59 Last Admin: 03/14/17 16:10 Dose: 12.5 mg Quetiapine Fumarate (Seroquel) 37.5 mg PO HS [facility] PRN Reason: Protocol Stop: 05/12/17 20:59 Last Admin: 03/13/17 21:08 Dose: 37.5 mg Senna (Senna) 17.2 mg PO HS [facility] Stop: 05/07/17 20:59 Last Admin: 03/13/17 21:06 Dose: 17.2 mg Senna (Senna) 17.2 mg PO DAILY [facility] Stop: 05/07/17 08:59 Last Admin: 03/14/17 08:41 Dose: 17.2 mg Valproate Sodium (Depakene) 250 mg PO BID [facility] Stop: 05/07/17 08:59 Last Admin: 03/14/17 16:10 Dose: 250 mg Zolpidem Tartrate (Ambien) 5 mg PO HS PRN PRN Reason: Insomnia Stop: 05/06/17 21:19 General: demented HEENT: NC/AT, PERRLA, anicteric sclerae, throat clear Neck: Supple, No JVD, No thyromegaly, +2 carotid pulse wo bruit, No LAD Cardiovascular: RRR, Normal S1, Normal S2, without murmur Abdomen: non-tender, non-distended Extremities: clear Neurological: no change Internal Medicine Assmt/Plan - Assessment Assessment: 1.HEMATUREA. 2.ANEMIA. 3.SP TURP. 4.DEMENTIA. - Plan Plan: CONTINUE O0N CURRENT MEDICATION AND DIET. Nutritional Asmnt/Malnutr-PDOC - Dietary Evaluation Malnutrition Findings (Please click <Entered> for more info): Nutritional Asmnt/Malnutrition Start: 03/12/17 13: 17 Text: Status: Complete Freq: Document 03/12/17 13:18 LCHENG (Rec: 03/12/17 13:27 L[facility]ENG [email or web address]) Nutritional Asmnt/Malnutrition Patient General Information Nutritional Screening Moderate Risk Diagnosis psychosis Pertinent Medical Hx/Surgical Hx HTN, dementia, DJD, BPH, s/p transurethral prostatic resection Subjective Information Pt seen lying in bad, having pain. Spoke with nurse, pt had pain and a lot blood on diaper today. Per notes, PO intake 75-100%. Pt appeared to have mild muscle wasting on arms. Current Diet Order/ Nutrition Support Pureed Pertinent Medications Vit C, colace, seroquel, senna Pertinent Labs 03/09 Cl 110H, BUN 39H, Glu 115H, Alb 3.6L Nutritional Hx/Data Height 1.96 m Height (Calculated Centimeters) 195.6 Current Weight (lbs) 70.307 kg Weight (Calculated Kilograms) 70.3 Weight (Calculated Grams) 45757.8 [place] Body Weight 208 % [place] Body Weight 75 Body Mass Index (BMI) 18.3 Weight Status Underweight GI Symptoms GI Symptoms None Last BM 03/10 Skin Integrity/Comment: bruise Current %PO Good (75-100%) Estimated Nutritional Goals BEE in Kcals: Using Current wt Calories/Kcals/Kg 30-35 Kcals Calculated Protein: Using Current wt Protein g/k-1.2 Protein Calculated 71-85 Fluid: ml 9826-0822 Nutritional Problem 1. Problem Problem underweight Etiology ?imbalanced energy intake Signs/Symptoms: BMI 18.3 Malnutrition Alert Protein-Calorie Malnutrition N/A Is there a minimum of two criteria No selected? Query Text:Check all the applicable criteria. A minimum of two criteria are recommended for diagnosis of either severe or non-severe malnutrition. Intervention/Recommendation Comments 1. Continue with current diet as ordered. 2. Monitor PO intake, wt weekly, labs and skin integrity 3. F/U as low risk in 7 days, 03/19, PO check 03/15 Expected Outcomes/Goals Expected Outcomes/Goals 1. PO intake to meet at least 75% of nutritional needs. 2. Wt stability, change toward to IBW; skin to remain intact , labs to approach WNL.
--- NOTE | 2017-03-15 15:26 | Progress Notes ---
DATE: 03/14/2017 SUBJECTIVE: The patient seen, chart reviewed, discussed with staff. The patient seems to be improving, calmer and more cooperative. I am still paying attention to his tremor, which seems to be improving. Still confused, unpredictable, but allowing ADLs. Poorly oriented. Needing a lot of redirection. ASSESSMENT: The patient remains symptomatic, confused, impulsive, unpredictable. PLAN: We will continue to monitor. Seroquel is lowered. We will continue to monitor closely. JOB# [id number]
[2017-03-15] MEDS ORDERED: Hydrocodone/APAP 5mg/325mg Tab PO PRN (16:34)
--- NOTE | 2017-03-15 17:09 | Internal Medicine Prog Note ---
Internal Medicine Subjective - Subjective Service Date: 03/15/17 Patient seen and examined:: with staff (HE STILL HAS HEMATUREA) Patient is:: awake, in wheelchair, confused Per staff patient has:: no adverse event Internal Medicine Objective - Results Result Diagrams: 03/13/17 07:03 03/13/17 07:03 Recent Labs: Laboratory Last Values WBC 7.1 Th/cmm (4.8-10.8) D 03/13/17 07:03 RBC 3.13 Mil/cmm (3.80-5.80) L 03/13/17 07:03 Hgb 9.4 gm/dL (12-16) L 03/13/17 07:03 Hct 27.7 % (41.0-60) L D 03/13/17 07:03 MCV 88.5 fl (80-99) 03/13/17 07:03 MCH 30.2 pg (27.0-31.0) 03/13/17 07:03 MCHC Differential 34.1 pg (28.0-36.0) 03/13/17 07:03 RDW 13.7 % (11.5-20.0) 03/13/17 07:03 Plt Count 375 Th/cmm (150-400) 03/13/17 07:03 MPV 7.5 fl 03/13/17 07:03 Neutrophils % 65.4 % (40.0-80.0) 03/13/17 07:03 Lymphocytes % 21.2 % (20.0-50.0) 03/13/17 07:03 Monocytes % 11.4 % (2.0-10.0) H 03/13/17 07:03 Eosinophils % 1.3 % (0.0-5.0) 03/13/17 07:03 Basophils % 0.7 % (0.0-2.0) 03/13/17 07:03 Sodium 142 mEq/L (136-145) 03/13/17 07:03 Potassium 3.8 mEq/L (3.5-5.1) 03/13/17 07:03 Chloride 109 mEq/L (98-107) H 03/13/17 07:03 Carbon Dioxide 26.0 mEq/L (21.0-31.0) 03/13/17 07:03 Anion Gap 10.8 (7.0-16.0) 03/13/17 07:03 BUN 34 mg/dL (7-25) H 03/13/17 07:03 Creatinine 1.1 mg/dL (0.7-1.3) 03/13/17 07:03 Est GFR ( Amer) TNP 03/13/17 07:03 Est GFR (Non-Af Amer) TNP 03/13/17 07:03 BUN/Creatinine Ratio 30.9 03/13/17 07:03 Glucose 85 mg/dL (70-105) 03/13/17 07:03 Calcium 9.6 mg/dL (8.6-10.3) 03/13/17 07:03 Total Bilirubin 0.6 mg/dL (0.3-1.0) 03/13/17 07:03 AST 29 U/L (13-39) 03/13/17 07:03 ALT 17 U/L (7-52) 03/13/17 07:03 Alkaline Phosphatase 46 U/L (34-104) 03/13/17 07:03 Total Protein 6.2 gm/dL (6.0-8.3) 03/13/17 07:03 Albumin 3.1 gm/dL (4.2-5.5) L 03/13/17 07:03 Globulin 3.1 gm/dL 03/13/17 07:03 Albumin/Globulin Ratio 1.0 (1.0-1.8) 03/13/17 07:03 - Physical Exam Vitals and I&O: Vital Signs Temp 98.2 F 03/15/17 14:00 Pulse 82 03/15/17 14:00 Resp 20 03/15/17 14:00 BP 106/81 03/15/17 14:00 Pulse Ox 95 03/15/17 14:00 Intake & Output 03/14/17 03/15/17 03/15/17 18:59 06:59 18:59 Intake Total 1200 240 Balance 1200 240 Intake: Oral 1200 240 Other: # Voids 3 # Bowel Movements 1 Active Medications: Current Medications Acetaminophen (Tylenol) 650 mg PO Q4H PRN PRN Reason: Mild Pain/Headache/T above 101 Stop: 05/06/17 21:19 Last Admin: 03/10/17 14:28 Dose: 650 mg Acetaminophen/Hydrocodone Bitart ([place] 5mg/325mg) 1 tab PO Q6H PRN PRN Reason: Moderate Pain Stop: 05/14/17 16:33 Al Hydrox/Mg Hydrox/Simethicone (Maalox) 30 ml PO Q6H PRN PRN Reason: Dyspepsia Stop: 05/06/17 21:19 Ascorbic Acid (Vitamin C) 500 mg PO DAILY [facility] Stop: 05/07/17 08:59 Last Admin: 03/15/17 08:56 Dose: 500 mg Docusate Sodium (Colace) 100 mg PO DAILY [facility] Stop: 05/07/17 08:59 Last Admin: 03/15/17 08:56 Dose: 100 mg Donepezil HCl (Aricept) 5 mg PO HS [facility] Stop: 05/07/17 20:59 Last Admin: 03/14/17 20:26 Dose: 5 mg Hydrocortisone (Hydrocortisone 2.5%) 1 appl TP BID [facility] Stop: 05/07/17 08:59 Last Admin: 03/15/17 16:50 Dose: Not Given Hydroxyzine HCl (Atarax) 10 mg PO Q8H PRN; Protocol PRN Reason: Itching Stop: 05/06/17 22:14 Lorazepam (Ativan) 1 mg PO Q6HR PRN; Protocol PRN Reason: Agitation Stop: 05/14/17 11:29 Magnesium Hydroxide (Milk Of Magnesia) 30 ml PO HS PRN PRN Reason: Constipation Stop: 05/06/17 22:04 Memantine (Namenda) 10 mg PO DAILY [facility] Stop: 05/07/17 08:59 Last Admin: 03/15/17 08:56 Dose: 10 mg Quetiapine Fumarate (Seroquel) 12.5 mg PO BID [facility] PRN Reason: Protocol Stop: 05/07/17 08:59 Last Admin: 03/15/17 08:57 Dose: 12.5 mg Quetiapine Fumarate (Seroquel) 37.5 mg PO HS [facility] PRN Reason: Protocol Stop: 05/12/17 20:59 Last Admin: 03/14/17 20:24 Dose: 37.5 mg Senna (Senna) 17.2 mg PO HS [facility] Stop: 05/07/17 20:59 Last Admin: 03/14/17 20:26 Dose: 17.2 mg Senna (Senna) 17.2 mg PO DAILY [facility] Stop: 05/07/17 08:59 Last Admin: 03/15/17 08:56 Dose: 17.2 mg Valproate Sodium (Depakene) 250 mg PO BID [facility] Stop: 05/07/17 08:59 Last Admin: 03/15/17 08:56 Dose: 250 mg Zolpidem Tartrate (Ambien) 5 mg PO HS PRN PRN Reason: Insomnia Stop: 05/14/17 11:30 General: demented HEENT: NC/AT, PERRLA, anicteric sclerae, throat clear Neck: Supple, No JVD, No thyromegaly, +2 carotid pulse wo bruit, No LAD Cardiovascular: RRR, Normal S1, Normal S2, without murmur Abdomen: non-tender, non-distended Extremities: clear Neurological: no change Internal Medicine Assmt/Plan - Assessment Assessment: 1.HEMATUREA. 2.ANEMIA. 3.SP TURP. 4.DEMENTIA. - Plan Plan: CONTINUE O0N CURRENT MEDICATION AND DIET.CBC IN AM. Nutritional Asmnt/Malnutr-PDOC - Dietary Evaluation Malnutrition Findings (Please click <Entered> for more info): Nutritional Asmnt/Malnutrition Start: 03/12/17 13: 17 Text: Status: Complete Freq: Document 03/12/17 13:18 LCHENG (Rec: 03/12/17 13:27 [email or web address]) Nutritional Asmnt/Malnutrition Patient General Information Nutritional Screening Moderate Risk Diagnosis psychosis Pertinent Medical Hx/Surgical Hx HTN, dementia, DJD, BPH, s/p transurethral prostatic resection Subjective Information Pt seen lying in bad, having pain. Spoke with nurse, pt had pain and a lot blood on diaper today. Per notes, PO intake 75-100%. Pt appeared to have mild muscle wasting on arms. Current Diet Order/ Nutrition Support Pureed Pertinent Medications Vit C, colace, seroquel, senna Pertinent Labs 03/09 Cl 110H, BUN 39H, Glu 115H, Alb 3.6L Nutritional Hx/Data Height 1.96 m Height (Calculated Centimeters) 195.6 Current Weight (lbs) 70.307 kg Weight (Calculated Kilograms) 70.3 Weight (Calculated Grams) 35169.8 [place] Body Weight 208 % [place] Body Weight 75 Body Mass Index (BMI) 18.3 Weight Status Underweight GI Symptoms GI Symptoms None Last BM 03/10 Skin Integrity/Comment: bruise Current %PO Good (75-100%) Estimated Nutritional Goals BEE in Kcals: Using Current wt Calories/Kcals/Kg 30-35 Kcals Calculated Protein: Using Current wt Protein g/k-1.2 Protein Calculated 71-85 Fluid: ml Nutritional Problem 1. Problem Problem underweight Etiology ?imbalanced energy intake Signs/Symptoms: BMI 18.3 Malnutrition Alert Protein-Calorie Malnutrition N/A Is there a minimum of two criteria No selected? Query Text:Check all the applicable criteria. A minimum of two criteria are recommended for diagnosis of either severe or non-severe malnutrition. Intervention/Recommendation Comments 1. Continue with current diet as ordered. 2. Monitor PO intake, wt weekly, labs and skin integrity 3. F/U as low risk in 7 days, 03/19, PO check 03/15 Expected Outcomes/Goals Expected Outcomes/Goals 1. PO intake to meet at least 75% of nutritional needs. 2. Wt stability, change toward to IBW; skin to remain intact , labs to approach WNL.
--- NOTE | 2017-03-16 07:55 | Progress Notes ---
DATE: 03/15/2017 HISTORY OF PRESENT ILLNESS: The patient remains agitated, still resistive to care, in a Meron chair, impulsive, unpredictable, confused. No tremors noted, which is positive. The patient is still in a [place] chair, needing a lot of redirection and prompting. MEDICATIONS: Reviewed including doses and frequencies. ASSESSMENT: The patient remains symptomatic, not safe for discharge. Medication adjustments have been made. PLAN: We will continue to monitor. No tremors noted. No EPS. JOB# [id number]
[2017-03-16 08:19] LABS: % BASOPHILS 0.2 % (0.0-2.0); % EOSINOPHILS 0.1 % (0.0-5.0); % LYMPHOCYTES 12.1 % (20.0-50.0); % MONOCYTES 8.7 % (2.0-10.0); % NEUTROPHILS 78.9 % (40.0-80.0); HEMATOCRIT 27.4 % (41.0-60); HEMOGLOBIN 9.1 gm/dL (12-16); LYMPHOCYTE ABSOLUTE 1.1 Th/cmm (1.5-3.0); MEAN CELL VOLUME 89.3 fl (80-99); MEAN CORPUSCULAR HEMOGLOBIN 29.9 pg (27.0-31.0); MEAN CORPUSCULAR HGB CONC 33.4 pg (28.0-36.0); MEAN PLATELET VOLUME 7.4 fl; MONOCYTE ABSOLUTE 0.8 Th/cmm (0.3-1.0); NEUTROPHILE ABSOLUTE 6.9 Th/cmm (1.8-8.0); PLATELET COUNT 363 Th/cmm (150-400); RED BLOOD COUNT 3.06 Mil/cmm (3.80-5.80); RED CELL DISTRIBUTION WIDTH 13.8 % (11.5-20.0)
[2017-03-16 08:20] LABS: WHITE BLOOD COUNT 8.8 Th/cmm (4.8-10.8)
[2017-03-16] MEDS ORDERED: 0.45% NS w/20 mEq KCl 1,000 ML IV SCH (19:42)
--- NOTE | 2017-03-16 19:46 | Internal Medicine Prog Note ---
Internal Medicine Subjective - Subjective Service Date: 03/16/17 Patient seen and examined:: with staff (HE HAD AN EPISOD OF SYNCOPY.HE STILL HAS BLOODY URIN.) Patient is:: awake, in wheelchair, confused Per staff patient has:: no adverse event Internal Medicine Objective - Results Result Diagrams: 03/16/17 08:02 03/13/17 07:03 Recent Labs: Laboratory Last Values WBC 8.8 Th/cmm (4.8-10.8) D 03/16/17 08:02 RBC 3.06 Mil/cmm (3.80-5.80) L 03/16/17 08:02 Hgb 9.1 gm/dL (12-16) L 03/16/17 08:02 Hct 27.4 % (41.0-60) L 03/16/17 08:02 MCV 89.3 fl (80-99) 03/16/17 08:02 MCH 29.9 pg (27.0-31.0) 03/16/17 08:02 MCHC Differential 33.4 pg (28.0-36.0) 03/16/17 08:02 RDW 13.8 % (11.5-20.0) 03/16/17 08:02 Plt Count 363 Th/cmm (150-400) 03/16/17 08:02 MPV 7.4 fl 03/16/17 08:02 Neutrophils % 78.9 % (40.0-80.0) 03/16/17 08:02 Lymphocytes % 12.1 % (20.0-50.0) L 03/16/17 08:02 Monocytes % 8.7 % (2.0-10.0) 03/16/17 08:02 Eosinophils % 0.1 % (0.0-5.0) 03/16/17 08:02 Basophils % 0.2 % (0.0-2.0) 03/16/17 08:02 Sodium 142 mEq/L (136-145) 03/13/17 07:03 Potassium 3.8 mEq/L (3.5-5.1) 03/13/17 07:03 Chloride 109 mEq/L (98-107) H 03/13/17 07:03 Carbon Dioxide 26.0 mEq/L (21.0-31.0) 03/13/17 07:03 Anion Gap 10.8 (7.0-16.0) 03/13/17 07:03 BUN 34 mg/dL (7-25) H 03/13/17 07:03 Creatinine 1.1 mg/dL (0.7-1.3) 03/13/17 07:03 Est GFR ( Amer) TNP 03/13/17 07:03 Est GFR (Non-Af Amer) TNP 03/13/17 07:03 BUN/Creatinine Ratio 30.9 03/13/17 07:03 Glucose 85 mg/dL (70-105) 03/13/17 07:03 Calcium 9.6 mg/dL (8.6-10.3) 03/13/17 07:03 Total Bilirubin 0.6 mg/dL (0.3-1.0) 03/13/17 07:03 AST 29 U/L (13-39) 03/13/17 07:03 ALT 17 U/L (7-52) 03/13/17 07:03 Alkaline Phosphatase 46 U/L (34-104) 03/13/17 07:03 Total Protein 6.2 gm/dL (6.0-8.3) 03/13/17 07:03 Albumin 3.1 gm/dL (4.2-5.5) L 03/13/17 07:03 Globulin 3.1 gm/dL 03/13/17 07:03 Albumin/Globulin Ratio 1.0 (1.0-1.8) 03/13/17 07:03 - Physical Exam Vitals and I&O: Vital Signs Temp 98.2 F 03/16/17 14:00 Pulse 90 03/16/17 14:00 Resp 19 03/16/17 14:00 BP 142/68 03/16/17 14:00 Pulse Ox 97 03/16/17 14:00 Intake & Output 03/16/17 03/16/17 03/17/17 06:59 18:59 06:59 Intake Total 1200 Balance 1200 Intake: Oral 1200 Other: # Bowel Movements 1 Active Medications: Current Medications Acetaminophen (Tylenol) 650 mg PO Q4H PRN PRN Reason: Mild Pain/Headache/T above 101 Stop: 05/06/17 21:19 Last Admin: 03/16/17 06:50 Dose: 650 mg Acetaminophen/Hydrocodone Bitart ([place] 5mg/325mg) 1 tab PO Q6H PRN PRN Reason: Moderate Pain Stop: 05/14/17 16:33 Al Hydrox/Mg Hydrox/Simethicone (Maalox) 30 ml PO Q6H PRN PRN Reason: Dyspepsia Stop: 05/06/17 21:19 Ascorbic Acid (Vitamin C) 500 mg PO DAILY [facility] Stop: 05/07/17 08:59 Last Admin: 03/16/17 13:21 Dose: 500 mg Docusate Sodium (Colace) 100 mg PO DAILY [facility] Stop: 05/07/17 08:59 Last Admin: 03/16/17 13:21 Dose: 100 mg Donepezil HCl (Aricept) 5 mg PO HS [facility] Stop: 05/07/17 20:59 Last Admin: 03/15/17 21:31 Dose: 5 mg Hydrocortisone (Hydrocortisone 2.5%) 1 appl TP BID [facility] Stop: 05/07/17 08:59 Last Admin: 03/16/17 17:17 Dose: Not Given Hydroxyzine HCl (Atarax) 10 mg PO Q8H PRN; Protocol PRN Reason: Itching Stop: 05/06/17 22:14 Potassium Chloride/Sodium Chloride (0.45% Ns W/20 Meq Kcl) 1,000 mls @ 75 mls/ hr IV .[id number] [facility] Stop: 05/15/17 19:41 Lorazepam (Ativan) 1 mg PO Q6HR PRN; Protocol PRN Reason: Agitation Stop: 05/14/17 11:29 Last Admin: 03/16/17 18:03 Dose: 1 mg Magnesium Hydroxide (Milk Of Magnesia) 30 ml PO HS PRN PRN Reason: Constipation Stop: 05/06/17 22:04 Memantine (Namenda) 10 mg PO DAILY [facility] Stop: 05/07/17 08:59 Last Admin: 03/16/17 13:21 Dose: 10 mg Quetiapine Fumarate (Seroquel) 12.5 mg PO BID [facility] PRN Reason: Protocol Stop: 05/07/17 08:59 Last Admin: 03/16/17 17:17 Dose: 12.5 mg Quetiapine Fumarate (Seroquel) 37.5 mg PO HS [facility] PRN Reason: Protocol Stop: 05/12/17 20:59 Last Admin: 12/14/17 21:30 Dose: 37.5 mg Senna (Senna) 17.2 mg PO HS [facility] Stop: 05/07/17 20:59 Last Admin: 03/15/17 21:31 Dose: 17.2 mg Senna (Senna) 17.2 mg PO DAILY [facility] Stop: 05/07/17 08:59 Last Admin: 03/16/17 13:22 Dose: 17.2 mg Valproate Sodium (Depakene) 250 mg PO BID [facility] Stop: 05/07/17 08:59 Last Admin: 03/16/17 16:57 Dose: 250 mg Zolpidem Tartrate (Ambien) 5 mg PO HS PRN PRN Reason: Insomnia Stop: 05/14/17 11:30 General: demented HEENT: NC/AT, PERRLA, anicteric sclerae, throat clear Neck: Supple, No JVD, No thyromegaly, +2 carotid pulse wo bruit, No LAD Cardiovascular: RRR, Normal S1, Normal S2, without murmur Abdomen: non-tender, non-distended Extremities: clear Neurological: no change Internal Medicine Assmt/Plan - Assessment Assessment: 1.HEMATUREA. 2.ANEMIA. 3.SP TURP. 4.DEMENTIA. 5.SYNCOPE. - Plan Plan: CONTINUE O0N CURRENT MEDICATION AND DIET.CBC AND CMP IN AM.IV FLUID. Nutritional Asmnt/Malnutr-PDOC - Dietary Evaluation Malnutrition Findings (Please click <Entered> for more info): Nutritional Asmnt/Malnutrition Start: 03/12/17 13: 17 Text: Status: Complete Freq: Document 03/12/17 13:18 HEN (Rec: 03/12/17 13:27 [facility] [id number]) Nutritional Asmnt/Malnutrition Patient General Information Nutritional Screening Moderate Risk Diagnosis psychosis Pertinent Medical Hx/Surgical Hx HTN, dementia, DJD, BPH, s/p transurethral prostatic resection Subjective Information Pt seen lying in bad, having pain. Spoke with nurse, pt had pain and a lot blood on diaper today. Per notes, PO intake 75-100%. Pt appeared to have mild muscle wasting on arms. Current Diet Order/ Nutrition Support Pureed Pertinent Medications Vit C, colace, seroquel, senna Pertinent Labs 03/09 Cl 110H, BUN 39H, Glu 115H, Alb 3.6L Nutritional Hx/Data Height 1.96 m Height (Calculated Centimeters) 195.6 Current Weight (lbs) 70.307 kg Weight (Calculated Kilograms) 70.3 Weight (Calculated Grams) 84859.8 [place] Body Weight 208 % [place] Body Weight 75 Body Mass Index (BMI) 18.3 Weight Status Underweight GI Symptoms GI Symptoms None Last BM 03/10 Skin Integrity/Comment: bruise Current %PO Good (75-100%) Estimated Nutritional Goals BEE in Kcals: Using Current wt Calories/Kcals/Kg 30-35 Kcals Calculated Protein: Using Current wt Protein g/k-1.2 Protein Calculated 71-85 Fluid: ml Nutritional Problem 1. Problem Problem underweight Etiology ?imbalanced energy intake Signs/Symptoms: BMI 18.3 Malnutrition Alert Protein-Calorie Malnutrition N/A Is there a minimum of two criteria No selected? Query Text:Check all the applicable criteria. A minimum of two criteria are recommended for diagnosis of either severe or non-severe malnutrition. Intervention/Recommendation Comments 1. Continue with current diet as ordered. 2. Monitor PO intake, wt weekly, labs and skin integrity 3. F/U as low risk in 7 days, 03/19, PO check 03/15 Expected Outcomes/Goals Expected Outcomes/Goals 1. PO intake to meet at least 75% of nutritional needs. 2. Wt stability, change toward to IBW; skin to remain intact , labs to approach WNL.
[2017-03-16] MEDS ORDERED: 0.45% NS w/20 mEq KCl 1,000 ML IV ONE (20:08)
--- NOTE | 2017-03-17 06:53 | Progress Notes ---
DATE: 03/16/2017 SUBJECTIVE: The patient seems to be improving, calmer. He did have an episode this morning where he was somewhat agitated, given Ativan. He has been participating in physical therapy. He has been taking his medications. No tremors noted. Seems to be doing well with current medication regimen, but very confused, disoriented in a skilled care. MEDICATIONS: Reviewed. ASSESSMENT: The patient remains symptomatic, not safe for discharge with improvement noted. He has got nowhere to go at this time. He cannot care for his basic needs. He is for all intents and purposes gravely disabled. PLAN: We will continue to monitor. We will reach out to daughter today. JOB# [id number]
[2017-03-17 08:02] LABS: ALB/GLOB RATIO 0.8 (1.0-1.8); ALBUMIN 2.5 gm/dL (4.2-5.5); ALKALINE PHOSPHATASE 50 U/L (34-104); ANION GAP 14.3 (7.0-16.0); BILIRUBIN,TOTAL 0.6 mg/dL (0.3-1.0); BUN - UREA NITROGEN 77 mg/dL (7-25); CALCIUM SERUM 9.7 mg/dL (8.6-10.3); CARBON DIOXIDE 21.4 mEq/L (21.0-31.0); CHLORIDE 119 mEq/L (98-107); CREATININE - SERUM 2.2 mg/dL (0.7-1.3); GLUCOSE 105 mg/dL (70-105); POTASSIUM SERUM 4.7 mEq/L (3.5-5.1); SGOT 31 U/L (13-39); SGPT/ALT 23 U/L (7-52); SODIUM SERUM 150 mEq/L (136-145); TOTAL PROTEIN,SERUM 5.5 gm/dL (6.0-8.3)
[2017-03-17 08:31] LABS: HEMATOCRIT 25.3 % (41.0-60); HEMOGLOBIN 8.3 gm/dL (12-16); LYMPHOCYTE ABSOLUTE 0.6 Th/cmm (1.5-3.0); MEAN CELL VOLUME 90.3 fl (80-99); MEAN CORPUSCULAR HEMOGLOBIN 29.5 pg (27.0-31.0); MEAN CORPUSCULAR HGB CONC 32.7 pg (28.0-36.0); MEAN PLATELET VOLUME 7.9 fl; MONOCYTE ABSOLUTE 0.1 Th/cmm (0.3-1.0); NEUTROPHILE ABSOLUTE 1.3 Th/cmm (1.8-8.0); PLATELET COUNT 304 Th/cmm (150-400); RED CELL DISTRIBUTION WIDTH 13.8 % (11.5-20.0)
[2017-03-17 09:02] LABS: BAND NEUTROPHILE 13 % (0-10); LYMPHOCYTE 31 % (20-50); MONOCYTE 4 % (2-10); NEUTROPHILS 52 % (40-80); TOTAL CELLS COUNTED 100
--- NOTE | 2017-05-09 18:04 | Discharge Summary ---
DATE OF DISCHARGE: 03/17/2017 JUSTIFICATION FOR HOSPITALIZATION: Confusion and agitation. HISTORY OF PRESENT ILLNESS: A 81-year-old male, confused, agitated, aggressive, resisting care and coherent, more confused, restless, fighting with staff, unable to be cared for at a lower level of care. PAST PSYCHIATRIC HISTORY: Advanced dementia. SOCIAL HISTORY: Living in a nursing facility. ALLERGIES: No known drug allergies. MENTAL STATUS EXAMINATION: Please see full psych eval for details. PROVISIONAL DIAGNOSES: Psychosis unspecified, dementia with behaviors. Medical: Please see full H and P. HOSPITAL COURSE: After initial assessment, the patient was admitted to the hospital. Medications were initiated and titrated. His behaviors did calm down. Toward the latter end of his hospitalization, he was much calmer. Unfortunately, he did medically decompensate and was transferred to the medical surgical unit. CONDITION UPON DISCHARGE: Improvement in behaviors allowing ADLs, still confused, disoriented. No overt SI. No HI. No overt psychotic symptoms. He was weaker and was transferred to the medical surgical unit due to medical decompensation. MEDICATIONS: Reviewed including doses and frequencies. DISCHARGE DIAGNOSIS: Unspecified psychosis and dementia, unspecified. Medical: Please see full H and P. PROGNOSIS: The patient continues his treatment plan and improves medically. Prognosis will improve, otherwise guarded. JOB# [id number]
== END 2017-03-17 09:40 | DRG 885 ==
LOC: GERO 20:52
PROVIDERS: ADMIT Psychiatry & Neurology Psychiatry; ATTEND Psychiatry & Neurology Psychiatry
DX: F29 Unspecified psychosis not due to a substance or known physiological condition (principal); F03.91 Unspecified dementia, unspecified severity, with behavioral disturbance; D64.9 Anemia, unspecified; R31.9 Hematuria, unspecified; N40.0 Benign prostatic hyperplasia without lower urinary tract symptoms; M19.90 Unspecified osteoarthritis, unspecified site; I10 Essential (primary) hypertension; R55 Syncope and collapse
CPT/HCPCS: 36415-UA; 80053-TC; 85007-TC; 85025-TC; 85027-TC; 94760; 97530; J3480; X3904; Z7610

== ENCOUNTER 2017-03-17 09:58 | Inpatient (IN) | payer MEDICARE, BC, MEDICAID ==
[2017-03-17] MEDS ORDERED: D5-0.45NS 1,000 ML IV SCH (10:15)
[2017-03-17] MEDS: Albuterol/Ipratropium Neb 3 ML AERS HHN SCH ×3 (10:45→19:55)
[2017-03-17 11:39] VITALS: BP 122/44
[2017-03-17 12:02] LABS: HEMOGLOBIN 9.2 gm/dL (12-16)
[2017-03-17 12:04] LABS: HEMATOCRIT 28.3 % (41.0-60)
[2017-03-17 12:49] LABS: WHITE BLOOD COUNT 2.7 Th/cmm (4.8-10.8)
[2017-03-17 12:50] LABS: % EOSINOPHILS 0.1 % (0.0-5.0); % LYMPHOCYTES 23.1 % (20.0-50.0); % MONOCYTES 2.6 % (2.0-10.0); % NEUTROPHILS 74.2 % (40.0-80.0); HEMATOCRIT 28.4 % (41.0-60); HEMOGLOBIN 9.3 gm/dL (12-16); MEAN CELL VOLUME 89.7 fl (80-99); MEAN CORPUSCULAR HEMOGLOBIN 29.4 pg (27.0-31.0); MEAN CORPUSCULAR HGB CONC 32.7 pg (28.0-36.0); MEAN PLATELET VOLUME 8.2 fl; PLATELET COUNT 317 Th/cmm (150-400); RED BLOOD COUNT 3.17 Mil/cmm (3.80-5.80); RED CELL DISTRIBUTION WIDTH 14.2 % (11.5-20.0)
[2017-03-17 12:51] LABS: LYMPHOCYTE ABSOLUTE 0.6 Th/cmm (1.5-3.0); MONOCYTE ABSOLUTE 0.1 Th/cmm (0.3-1.0)
[2017-03-17] MEDS ORDERED: Vancomycin HCl 1.5 GM in Sodium Chloride 0.9% 500 ML IV ONE (13:00)
[2017-03-17 13:01] LABS: ANION GAP 14.4 (7.0-16.0); CALCIUM SERUM 9.9 mg/dL (8.6-10.3); CARBON DIOXIDE 21.5 mEq/L (21.0-31.0); CHLORIDE 120 mEq/L (98-107); CREATININE - SERUM 2.3 mg/dL (0.7-1.3); GLUCOSE 104 mg/dL (70-105); POTASSIUM SERUM 4.9 mEq/L (3.5-5.1); SODIUM SERUM 151 mEq/L (136-145)
[2017-03-17 13:08] LABS: BUN - UREA NITROGEN 80 mg/dL (7-25)
--- NOTE | 2017-03-17 13:37 | History & Physical ---
ADMIT DATE: 03/17/2017 CHIEF COMPLAINT: Hypoxemia. HISTORY OF PRESENT ILLNESS: The patient is a 81-year-old male with long history of dementia, benign prostatic hypertrophy, underwent transurethral prostatectomy more than a month ago by Dr. Eliezer Valenzuela at [facility]. The patient transferred to [facility] for evaluation and treatment. The patient started having bleeding and transferred to [facility] for more evaluation. The patient stayed for almost a week and was seen by Dr. Eliezer Valenzuela and he suggests to watch the patient closely. The patient transferred back to [facility] last week and he was doing good until yesterday when he had an episode of syncope. The patient was seen by Dr. Izquierdo and myself and he was clinically stable. I started him on IV fluids because he was not eating or drinking well. This morning, the patient became hypoxic, oxygen dropped to 70s, transferred to the telemetry, started him on BiPAP. Chest x-ray, ABG done and Dr. Mcghee consulted on the case. ABG is normal. Chest x-ray is still pending. The patient is a DNR, but the family have concerned about his condition, so we decided to admit the patient to the ICU for close observation and treatment, I started the patient on IV fluid, antibiotic empirically, and UA culture were ordered. Case discussed with the family in details and he still DNR. PAST MEDICAL HISTORY: Significant for dementia, COPD, benign prostatic hypertrophy. PAST SURGICAL HISTORY: TURP surgery. ALLERGIES: None. MEDICATIONS: Follow admission reconciliation. SOCIAL HISTORY: He is an ex-smoker, no drugs, no alcohol. FAMILY HISTORY: Noncontributory. REVIEW OF SYSTEMS: RENAL SYSTEM: No history of chronic renal disorder. CARDIOVASCULAR SYSTEM: No coronary artery disease. ENDOCRINE SYSTEM: No diabetes or thyroid problem. GASTROINTESTINAL SYSTEM: No upper or lower GI bleed. NEUROLOGICAL SYSTEM: He has history of dementia. MUSCULOSKELETAL SYSTEM: No muscular dystrophy. HEMATOLOGIC SYSTEM: He has anemia. PHYSICAL EXAMINATION: GENERAL: He is not responding on BiPAP. VITAL SIGNS: His temperature is 98, heart rate is 98, and blood pressure is 98/64. HEENT: Normocephalic. Pupils reactive to light and accommodation. Sclerae clear. NECK: Supple. Negative for lymphadenopathy, JVD, or bruit. CHEST: Bilateral good entry of air, bilateral no wheezing. HEART: S1, S2 normal. ABDOMEN: Soft, bowel sounds positive. EXTREMITIES: No edema. NEUROLOGIC: He is twitching, not following command. LABORATORY DATA: Hemoglobin 9.2, hematocrit 28.3. ASSESSMENT: 1. Acute respiratory failure. 2. Hematuria. 3. Anemia. 4. Dementia. PLAN: The patient admitted to the ICU under Dr. Clement's service, started on IV fluid, antibiotic. The patient is n.p.o. We will do H and H every 6 hours. Type and cross for 2 units and transfuse if hemoglobin is less than 8. Case discussed with the family. The patient is still DNR. CBC and CMP in a.m. JOB# [id number]
[2017-03-17 13:58] LABS: URINE MICROSCOPIC INDICATED? YES; URINE SOURCE CATH
[2017-03-17 14:18] LABS: URINE BILIRUBIN NEGATIVE (NEGATIVE); URINE BLOOD LARGE (NEGATIVE); URINE GLUCOSE (UA) NEGATIVE (NEGATIVE); URINE KETONE 15 mg/dL (NEGATIVE); URINE LEUKOCYTE ESTERASE MODERATE (NEGATIVE); URINE NITRATE POSITIVE (NEGATIVE); URINE PH >=9.0 (4.6 - 8.0); URINE PROTEIN >=300 mg/dL (NEGATIVE)
[2017-03-17 14:20] LABS: pH 7.45 (7.35-7.45)
[2017-03-17 14:21] LABS: ALLEN TEST Positive
[2017-03-17 14:38] LABS: URINE CLARITY BLOODY (CLEAR); URINE COLOR RED
[2017-03-17 14:39] LABS: URINE BACTERIA MANY /hpf (NONE SEEN); URINE EPITHELIAL CELLS FEW /lpf (FEW); URINE RBC >100 /hpf (0-5)
[2017-03-17 14:40] LABS: URINE AMORPHOUS SEDIMENT MANY PHOSPHATES (NONE SEEN)
[2017-03-17] MEDS: D5-0.45NS 1,000 ML IV SCH ×2 (14:45→22:45)
[2017-03-17] MEDS ORDERED: VTE Chemical Prophylaxis Screen/Admission MC PRN (15:46)
[2017-03-17 17:48] LABS: HEMATOCRIT 26.7 % (41.0-60); LYMPHOCYTE ABSOLUTE 0.8 Th/cmm (1.5-3.0); MANUAL DIFF REQUIRED? YES; MEAN CELL VOLUME 91.2 fl (80-99); MEAN CORPUSCULAR HEMOGLOBIN 29.1 pg (27.0-31.0); MEAN CORPUSCULAR HGB CONC 31.8 pg (28.0-36.0); MEAN PLATELET VOLUME 7.7 fl; MONOCYTE ABSOLUTE 0.1 Th/cmm (0.3-1.0); NEUTROPHILE ABSOLUTE 1.4 Th/cmm (1.8-8.0); PLATELET COUNT 356 Th/cmm (150-400); RED BLOOD COUNT 2.93 Mil/cmm (3.80-5.80); RED CELL DISTRIBUTION WIDTH 14.4 % (11.5-20.0)
[2017-03-17 17:59] LABS: HEMOGLOBIN 8.6 gm/dL (12-16); WHITE BLOOD COUNT 2.3 Th/cmm (4.8-10.8)
[2017-03-17 18:00] LABS: HEMATOCRIT 26.7 % (41.0-60); HEMOGLOBIN 8.6 gm/dL (12-16)
[2017-03-17 18:03] LABS: ALB/GLOB RATIO 0.8 (1.0-1.8); ALBUMIN 2.5 gm/dL (4.2-5.5); ALKALINE PHOSPHATASE 46 U/L (34-104); BILIRUBIN,TOTAL 0.6 mg/dL (0.3-1.0); CALCIUM SERUM 9.8 mg/dL (8.6-10.3); CARBON DIOXIDE 17.8 mEq/L (21.0-31.0); CHLORIDE 123 mEq/L (98-107); CREATININE - SERUM 2.6 mg/dL (0.7-1.3); GLUCOSE 95 mg/dL (70-105); POTASSIUM SERUM 5.8 mEq/L (3.5-5.1); SGOT 35 U/L (13-39); SGPT/ALT 23 U/L (7-52); SODIUM SERUM 154 mEq/L (136-145); TOTAL PROTEIN,SERUM 5.7 gm/dL (6.0-8.3)
[2017-03-17 18:05] LABS: BUN - UREA NITROGEN 86 mg/dL (7-25)
[2017-03-17] MEDS ORDERED: SODIUM CHLORIDE 0.9% IV SCH (18:15)
[2017-03-17 18:32] LABS: BAND NEUTROPHILE 5 % (0-10); LYMPHOCYTE 30 % (20-50); MONOCYTE 5 % (2-10); NEUTROPHILS 60 % (40-80); PLATELET ESTIMATE ADEQUATE (NORMAL)
[2017-03-17 18:36] LABS: ANISOCYTOSIS 1+; HYPOCHROMIA 1+
[2017-03-17] MEDS: Morphine Sulfate 2 mg/mL 1mL Syr IVP PRN (20:12)
[2017-03-17] MEDS ORDERED: Diltiazem 5 mg/mL 5mL Vial IVP PRN (21:34)
[2017-03-17 22:09] LABS: EOSINOPHIL SMEAR SOURCE URINE; EOSINOPHILS SMEAR COUNT NONE SEEN (NONE SEEN)
[2017-03-18] MEDS: Albuterol/Ipratropium Neb 3 ML AERS HHN SCH (00:34)
[2017-03-18 01:17] LABS: HEMATOCRIT 24.9 % (41.0-60)
[2017-03-18 01:20] LABS: HEMOGLOBIN 7.8 gm/dL (12-16)
[2017-03-18] MEDS: Morphine Sulfate 2 mg/mL 1mL Syr IVP PRN (02:48)
[2017-03-18] MEDS ORDERED: Morphine Sulfate 2 mg/mL 1mL Syr IVP PRN (03:31)
--- NOTE | 2017-03-18 09:46 | Diagnostic Imaging Report ---
CHEST X-RAY: AP view INDICATION: Respiratory distress COMPARISON: 02/02/2017 FINDINGS: Bibasal infiltrates are noted. No significant pleural effusions. Heart size is normal. There are probable COPD changes. IMPRESSION: Bibasilar infiltrates/pneumonia..
--- NOTE | 2017-03-18 10:58 | Consultation ---
DATE OF CONSULTATION: 03/17/2017 ATTENDING PHYSICIAN: Chago Clement MD The patient was admitted because of altered level of consciousness. HISTORY OF PRESENT ILLNESS: This is a 81-year-old male with past medical history of chronic kidney disease who was transferred from [facility] to ICU because of altered level of consciousness. A few hours prior to transfer, the patient was found unresponsive for approximately 10 seconds at the dining room. [employer] was called. The patient also was found to be in respiratory distress and hypoxemic. Chest x-ray revealed bilateral infiltrates. He was transferred immediately to ICU. He was placed on BiPAP. Labs drawn revealed a sodium of 151, BUN/creatinine of 80/2.3. PAST MEDICAL HISTORY: 1. Chronic kidney disease. 2. BPH. The patient underwent TURP last month at [facility]. He was subsequently transferred to [facility]. However, he pulled out his [place] catheter, which resulted in persistent gross hematuria. He was transferred to [facility] and he was evaluated by an urologist. He recommended just to observe for now. He was again readmitted at [facility]. 3. Alzheimer dementia with behavioral disturbance. 4. COPD. 5. Acute psychosis. CURRENT MEDICATIONS: He is currently on cefepime, vancomycin, and albuterol with ipratropium. ALLERGIES: No known drug allergies. SOCIAL AND FAMILY HISTORY: I was not able to obtain from the patient because he is currently stuporous and on BiPAP. REVIEW OF SYSTEMS: Again, I was not able to decipher directly from the patient. PHYSICAL EXAMINATION: GENERAL: The patient remains stuporous, on BiPAP, in [id number] respiratory distress. VITAL SIGNS: His blood pressure is 92/48, pulse 114, and afebrile. SKIN: Warm, poor turgor, no jaundice appreciated. HEENT: Head: Normocephalic, atraumatic. Eyes, Ears, and Nose: Not able to examine because of the requirement of him being on a BiPAP. Mouth: Dry mucosa, adequate dentition. NECK: Supple, no adenopathy, no thyromegaly, no bruits. Trachea palpated in the midline. CHEST AND CARDIOVASCULAR SYSTEM: Tachycardic, irregular rhythm, S1, S2. No rub, murmur, and no gallop appreciated. Point of maximal impulse fifth intercostal space, left midclavicular line. No abdominal or femoral bruits appreciated. LUNGS: Equal expansion. Minimal use of accessory muscles. No supraclavicular retractions. Scattered coarse rhonchi, but no rales, no congestion, or even wheezes appreciated. ABDOMEN: Mildly globular, soft. Positive for bowel sounds. No bruits either diastolic or systolic. RECTAL: Deferred. GENITOURINARY: Normal-appearing male genitalia with condom cath and with dark red urine in the catheter as well as bag. EXTREMITIES: No evidence of any edema, cyanosis nor clubbing with palpable femoral, but unable to fully appreciate popliteal or dorsalis pedis pulses. NEUROLOGIC: As mentioned, the patient currently is stuporous, so he was not able to follow my neuro commands and I was not able to pursue further my neuro exam. LABORATORY DATA: Did reveal a white count 2.7, hemoglobin 9.3, hematocrit 30.4, platelets 317, polys 74.4%. Sodium is 151, potassium 4.9, chloride 120, bicarb 21, BUN 80, creatinine 2.3, glucose 104, calcium 9.9. IMPRESSION: 1. Acute kidney injury on chronic kidney disease. Chronic kidney disease is possibly due to history of recurring obstruction in the past giving rise to a chronic obstructive uropathy. Acute kidney injury initially could be prerenal in nature. The patient's oral intake seemed to have diminished. Eventually, he developed dehydration and his prerenal azotemia progressed to acute tubular injury. He has a history of gross hematuria and eventually could have developed clots preventing spontaneous flow of urine and resulting in acute obstruction. This could lead to development of acute obstructive uropathy. His urinalysis was also suggestive of an ongoing urinary tract infection, which could give rise to acute interstitial nephritis. 2. Gross hematuria, possibly from trauma. 3. Altered level of consciousness, possibly due to medications because the patient is on multiple psychotropic medications. 4. Acute respiratory failure, on BiPAP, possible aspiration pneumonia, but also need to consider medications that the patient has taken, which could affect his respiratory drive. 5. Essential tremors/myoclonic jerks, which could also be due to his psychotropic medications. 6. Hypernatremia, possibly a sign of ongoing dehydration. 7. Bicytopenia with neutropenia as well as anemia. PLAN: 1. D5 half NS at 125 mL/h. 2. Urine culture. 3. Urine spot sodium, eosinophils, creatinine, osmolality. 4. Urine microalbumin to creatinine ratio. 5. Followup electrolytes, CBC, phosphate, magnesium. JOB# [id number]
--- NOTE | 2017-03-18 13:51 | Consultation ---
DATE OF CONSULTATION: 03/17/2017 Thank you very much, Dr. Clement, for this consultation. HISTORY OF PRESENT ILLNESS: This is a 81-year-old male with a history of dementia who was in [facility], apparently developed an episode of shortness of breath and desaturation, who was brought here, placed on the BiPAP, admitted for further treatment and management. The patient is tachypneic on the BiPAP, saturating 90-94% on 100%. Apparently according to the family, the patient had cystoscopy and prostatectomy before deteriorating declining lately since December with poor eating and some weight loss. Apparently, the patient lost his who a couple of days ago. REVIEW OF SYSTEMS: Unable to obtain because of the patient's condition. PAST MEDICAL HISTORY: As above. SOCIAL HISTORY: History of smoking in the past for about 30 years. PHYSICAL EXAMINATION: GENERAL: Obtunded, in acute distress. VITAL SIGNS: Blood pressure 132/44, temperature 99.1, pulse 67, respirations 37, blood pressure 125/54. HEENT: Atraumatic, normocephalic. Pupils are equal to light and accommodation. Ears, nose and throat are normal. NECK: Supple. CHEST: Decreased breath sounds bilaterally. Rhonchi bilaterally. HEART: Regular rate and rhythm. ABDOMEN: Soft. EXTREMITIES: No edema. LABORATORY DATA: Hemoglobin 9.2, hematocrit 28.3. Chest x-ray pending. ABGs: pH 7.45, pCO2 of 30, pO2 70, bicarbonate is 23, saturation 95%. IMPRESSION: A 81-year-old male with respiratory failure, possible aspiration, underlying history of dementia, dysphagia. PLAN: 1. IV antibiotics. 2. BiPAP. 3. Check chest x-ray. 4. Nebulizer. 5. Supportive care. The patient is DNR. Discussed with the family. No intubation. We will observe him in ICU and followup chest x-ray and labs. Overall prognosis is poor. JOB# [id number]
[2017-03-20 07:13] LABS: CREATININEURINE 116.9 mg/dL (Not Estab.); MICROALBUMIN RANDOM RUINE 1631.5 ug/mL (Not Estab.)
== END 2017-03-18 06:20 | disposition expired | DRG 177 ==
LOC: MSI 09:58 → ICU 13:13
PROVIDERS: ADMIT Family Medicine; ATTEND Family Medicine
PROC: 5A09357 Assistance with Respiratory Ventilation, Less than 24 Consecutive Hours, Continuous Positive Airway Pressure (ICD-10-PCS; 2017-03-17)
PROC: 30233N1 Transfusion of Nonautologous Red Blood Cells into Peripheral Vein, Percutaneous Approach (ICD-10-PCS; principal; 2017-03-18)
DX: J69.0 Pneumonitis due to inhalation of food and vomit (principal); J96.01 Acute respiratory failure with hypoxia; E43 Unspecified severe protein-calorie malnutrition; N17.9 Acute kidney failure, unspecified; G93.41 Metabolic encephalopathy; D70.9 Neutropenia, unspecified; R13.10 Dysphagia, unspecified; E86.0 Dehydration; D64.9 Anemia, unspecified; G30.9 Alzheimer's disease, unspecified; F02.80 Dementia in other diseases classified elsewhere, unspecified severity, without behavioral disturbance, psychotic disturbance, mood disturbance, and anxiety; N10 Acute pyelonephritis; E87.1 Hypo-osmolality and hyponatremia; Z66 Do not resuscitate; N40.0 Benign prostatic hyperplasia without lower urinary tract symptoms; N18.9 Chronic kidney disease, unspecified; N13.9 Obstructive and reflux uropathy, unspecified; R31.0 Gross hematuria; D75.9 Disease of blood and blood-forming organs, unspecified; R25.1 Tremor, unspecified; Z87.891 Personal history of nicotine dependence
CPT/HCPCS: 36415-UA; 36600-90; 71010-TC; 80048-TC; 80053-TC; 81001-TC; 81015-TC; 82043-90; 82570-TC; 82803-TC; 83605; 83935-90; 84300-TC; 85007-TC; 85014-TC; 85018-TC; 85025-TC; 85027-TC; 86850-TC; 86900-TC; 86901-TC; 86922-TC; 87086-90; 90779; 93005; 94640; 94660; J0692; J2270; J2543; J3370; J7030; J7040; P9016; Z7610